=== PATIENT | female | born 1965 | race Caucasian/White ===

== ENCOUNTER 2020-08-29 15:50 | Outpatient (REF) | payer OTHER, SELFPAY ==
[2020-08-29 17:12] LABS: MANUAL DIFF FLAG NO
[2020-08-29 17:27] LABS: Basophils Absolute Auto 0.1 X10*3/uL (0.0-0.2); Basophils Percent Auto 0.8 % (0-2); Eosinophils Absolute Auto 0.4 X10*3/uL (0.0-0.4); Eosinophils Percent Auto 5.5 % (0-4); Hemoglobin 13.1 g/dl (12.0-16.0); Imm Gran Abs Auto 0.02 X10*3/uL (0.00-0.03); Imm Gran Pct Auto 0.3 % (0.0-0.4); Lymphocytes Absolute Auto 2.4 X10*3/uL (1.2-4.9); Lymphocytes Percent Auto 32.2 % (20-40); Mean Corpuscular Hemoglobin 28.7 pg (27.0-33.0); Mean Corpuscular Volume 89.7 fL (80-98); Mean Platelet Volume 9.8 fL (9.4-12.3); Monocytes Absolute Auto 0.5 X10*3/uL (0.1-1.2); Monocytes Percent Auto 6.7 % (2-11); Neutrophils Absolute Auto 4.1 X10*3/uL (2.0-8.3); Neutrophils Percent Auto 54.5 % (45-73); Platelet Count 330 X10*3/uL (160-400); Red Blood Count 4.57 X10*6/uL (4.20-5.50); Red Cell Distribution Width 12.7 % (11.0-16.0); White Blood Count 7.5 X10*3/uL (4.8-10.8)
[2020-08-29 17:38] LABS: Alanine Aminotransferase 22 U/L (0-31); Albumin Level 4.4 g/dL (3.5-5.0); Alkaline Phosphatase 38 U/L (39-117); Anion Gap 12 (12-20); Aspartate Amino Transferase 19 U/L (5-31); Bilirubin Total 0.3 mg/dL (0.0-1.0); Blood Urea Nitrogen 19 mg/dL (9-16); C Reactive Protein 0.28 mg/dL (< or = 0.50); Calcium 9.5 mg/dL (8.4-10.2); Carbon Dioxide 26 mmol/L (22-29); Chloride 106 mmol/L (96-108); Estimated Glomerular Filt Rate > 60; Glucose Random 72 mg/dL (60-115); Potassium 4.1 mmol/l (3.3-5.1); Sodium 140 mmol/L (135-145); Total Protein 7.1 g/dL (6.5-8.0)
[2020-08-29 19:34] LABS: Erythrocyte Sedimentation Rate 4 MM/HR (0-20)
== END 2020-08-29 15:51 | disposition home or self-care (01) ==
LOC: HO.LAB 15:50
PROVIDERS: PCP Internal Medicine; Visit Provider Student in an Organized Health Care Education/Training Program
DX: R76.8 Other specified abnormal immunological findings in serum (principal)
CPT/HCPCS: 36415; 80053; 85025; 85652; 86140

== ENCOUNTER → 2020-09-03 15:44 | Outpatient (BNVA) | payer OTHER, SELFPAY | PROVIDERS: PCP Internal Medicine; Referring Provider Internal Medicine; Visit Provider Student in an Organized Health Care Education/Training Program | DX: R76.8 Other specified abnormal immunological findings in serum (principal); R07.9 Chest pain, unspecified | CPT/HCPCS: 99213 ==

== ENCOUNTER 2020-09-03 16:15 | Emergency (ER) | payer OTHER, SELFPAY ==
--- NOTE | 2020-09-03 | ECG_ITS ---
Test Reason : CHEST PAIN Blood Pressure : / mmHG Vent. Rate : 074 BPM Atrial Rate : 074 BPM P-R Int : 164 ms QRS Dur : 094 ms QT Int : 410 ms P-R-T Axes : 035 004 043 degrees QTc Int : 455 ms Normal sinus rhythm T wave abnormality, consider anterior ischemia Abnormal ECG No previous ECGs available Referred By: Generic ED Physician Electronically Signed By:KIERA ASCENCIO MD
[2020-09-03 17:12] VITALS: BP 121/63; PULSE 72; RESP 18; TEMP 36.1; O2SAT 96; BMI 34.8
--- NOTE | 2020-09-03 18:41 | XR_ITS ---
EXAMINATION: XR CHEST CLINICAL INFORMATION: Chest pain COMPARISON: 12/01/2017 TECHNIQUE: Frontal view of the chest was obtained. FINDINGS: There is increasing coarse interstitial prominence. No focal consolidation or mass. Normal heart size. Degenerative changes of the shoulders and spine. IMPRESSION: Increasing coarse interstitial prominence. This can be seen acutely with bronchiolitis or interstitial pneumonitis, chronically with chronic bronchitis or reactive airways disease.
[2020-09-03 19:11] VITALS: BP 127/58; PULSE 68; RESP 16; TEMP 36.7; O2SAT 96
[2020-09-03 19:11] LABS: MANUAL DIFF FLAG NO
[2020-09-03 19:14] LABS: Basophils Absolute Auto 0.1 X10*3/uL (0.0-0.2); Basophils Percent Auto 0.9 % (0-2); Eosinophils Absolute Auto 0.6 X10*3/uL (0.0-0.4); Eosinophils Percent Auto 8.6 % (0-4); Hematocrit 40.6 % (37-47); Hemoglobin 13.1 g/dl (12.0-16.0); Imm Gran Abs Auto 0.01 X10*3/uL (0.00-0.03); Imm Gran Pct Auto 0.2 % (0.0-0.4); Lymphocytes Absolute Auto 2.6 X10*3/uL (1.2-4.9); Lymphocytes Percent Auto 39.1 % (20-40); Mean Corpuscular HGB Conc 32.3 g/dl (31.0-35.0); Mean Corpuscular Volume 89.8 fL (80-98); Mean Platelet Volume 9.3 fL (9.4-12.3); Monocytes Absolute Auto 0.5 X10*3/uL (0.1-1.2); Monocytes Percent Auto 7.1 % (2-11); Neutrophils Absolute Auto 2.9 X10*3/uL (2.0-8.3); Neutrophils Percent Auto 44.1 % (45-73); Platelet Count 317 X10*3/uL (160-400); Red Blood Count 4.52 X10*6/uL (4.20-5.50); Red Cell Distribution Width 12.5 % (11.0-16.0); White Blood Count 6.7 X10*3/uL (4.8-10.8)
[2020-09-03 19:21] LABS: Prothrombin Time 11.4 SEC (10.8-13.0)
[2020-09-03 19:24] LABS: Partial Thromboplastin Time 31.6 SEC (24.1-38.0)
--- NOTE | 2020-09-03 19:41 | ED.CHESTPAIN ---
HPI - Chest Pain General Chief Complaint: Chest Pain Stated Complaint: chest pain Time Seen by Provider: 09/03/20 18:41 Source: patient Mode of arrival: ambulatory Limitations: no limitations History of Present Illness HPI narrative: 54-year-old female presents with chest pain. chest pain feels like a bandlike pressure going around her chest, started on Tuesday and has been intermittent. She called her primary care physician for an appointment today and was referred to the emergency department. She does have bilateral lower extremity edema per baseline, a history of DASHAWN positive test. She has been taking [id number] medications with poor effect, and reports to have intermittent diaphoresis with this chest pain. She does not describe any palpitations, fevers, chills, abdominal pain, abdominal distention, dysuria, hematuria, lightheadedness, dizziness, and weakness. MD complaint: chest pain and chest heaviness Onset (ago): day(s) (4) Timing of current episode: episodic Prior episodes: No Onset: during rest and during exertion Pain location: substernal, left chest and right chest Pain radiation: none Severity: moderate Pain scale (0-10): 6 Quality: tightness and heaviness Relieving factors: nothing Exacerbating factors: exertion Associated symptoms: diaphoresis Risk Factors Coronary artery disease risk factors: none Related Data On Oral Contraceptives: No Home Medications Medication Instructions Recorded Confirmed acetaminophen 650 mg 650 mg PO BID 08/14/20 09/03/20 tablet,extended release aspirin 81 mg tablet,delayed 81 mg PO DAILY 08/14/20 09/03/20 release bupropion HCl 300 mg 24 hr tablet, 300 mg PO DAILY 08/14/20 09/03/20 extended release citalopram 40 mg tablet 40 mg PO BEDTIME 08/14/20 09/03/20 cyanocobalamin (vitamin B-12) 1,000 mcg SUBLINGUAL DAILY 08/14/20 09/03/20 1,000 mcg sublingual tablet diclofenac sodium 1 % topical gel 1 g TOPICAL BID PRN 08/14/20 09/03/20 ethacrynic acid 25 mg tablet 50 mg PO DAILY 08/14/20 09/03/20 ferrous sulfate 325 mg (65 mg 325 mg PO DAILY 08/14/20 09/03/20 iron) tablet gabapentin 300 mg capsule 300 mg PO TID 08/14/20 09/03/20 hydroxyzine pamoate 25 mg capsule 25 mg PO BID PRN 08/14/20 09/03/20 ibuprofen 600 mg tablet 600 mg PO TID 08/14/20 09/03/20 mesalamine 1.2 gram tablet,delayed 1.2 g PO DAILY 08/14/20 09/03/20 release mupirocin 2 % topical ointment 1 applic TOPICAL BID 08/14/20 09/03/20 omeprazole 40 mg capsule,delayed 40 mg PO DAILY 08/14/20 09/03/20 release oxycodone-acetaminophen 5 mg-325 1 tab PO Q6H PRN 08/14/20 09/03/20 mg tablet pentoxifylline 400 mg 400 mg PO DAILY 08/14/20 09/03/20 tablet,extended release polysaccharide iron complex 150 mg 150 mg PO DAILY 08/14/20 09/03/20 iron capsule pravastatin 40 mg tablet 40 mg PO DAILY 08/14/20 09/03/20 ropinirole 0.5 mg tablet 0.5 mg PO BEDTIME 08/14/20 09/03/20 sumatriptan succinate 50 mg tablet 50 mg PO DAILY PRN 08/14/20 09/03/20 topiramate 25 mg tablet 25 mg PO DAILY 08/14/20 09/03/20 verapamil 180 mg tablet,extended 180 mg PO DAILY 08/14/20 09/03/20 release Previous Rx's Medication Instructions Recorded azithromycin 250 mg PO DAILY 4 Days #4 tab 09/03/20 prednisone 40 mg PO DAILY 4 Days #8 tab 09/03/20 Allergies Allergy/AdvReac Type Severity Reaction Status Date / Time amoxicillin [AMOXICILLIN] Allergy Intermediate FACIAL Unverified 07/31/20 16:39 SWELLING, swollen face sulfamethoxazole Allergy Intermediate HIVES Unverified 07/31/20 16:39 [From BACTRIM] trimethoprim [From BACTRIM] Allergy Intermediate HIVES Unverified 07/31/20 16:39 Sulfa (Sulfonamide Allergy Unknown red Unverified 03/13/20 00:00 Antibiotics) patches all over legs Review of Systems Review of Systems: Constitutional: No Weight loss, No Fever, No Chills, No Night Sweats, No Fatigue, No Malaise ENT/Mouth: No Hearing loss, No Ear Pain, No Nasal Congestion, No Sinus Pain, No Hoarseness, No sore throat, No Rhinorrhea, No Swallowing Difficulty Eyes: No Eye Pain, No Swelling, No Redness, No Foreign Body, No Discharge, No Vision Changes Cardiovascular: pos Chest Pain, no SOB, no Dyspnea on Exertion, No Orthopnea, No Edema, No Palpitations Respiratory: No Cough, No Sputum, No Wheezing, No Smoke Exposure, No Dyspnea Gastrointestinal: no Nausea, No Vomiting, No Diarrhea, No abdominal Pain, No Hematochezia, No Melena Genitourinary: No irregular bleeding, No Dysuria, No Urinary Frequency, No Hematuria, No Urinary Incontinence, No Urgency, No Flank Pain, No Urinary Flow Changes, No Hesitancy Musculoskeletal: No joint pain, No Myalgias, No Joint Swelling Skin: No Skin Lesions, No rash Neuro: No Weakness, No Numbness, No Paresthesias, No Loss of Consciousness, No Dizziness, No Headache Psych: No Anxiety/Panic, No Depression, No SI/HI/AH/VH Heme/Lymph: No Bruising, No Bleeding,No Lymphadenopathy Endocrine: No Polyuria, No Polydipsia, No Temperature Intolerance Yes all other systems are reviewed and are negative [facility] Past Medical History Attestation statement: The following information was validated with the patient. Medical History DASHAWN positive Positive anti-CCP test Social History Social History Alcohol intake: never Smoking Status: Never smoker Physical Exam Vital Signs: Vital Signs: Vital Signs Temp Pulse Resp BP Pulse Ox 09/03/20 20:00 98.3 F 65 16 122/66 96 09/03/20 19:11 98.0 F 68 16 127/58 L 96 09/03/20 17:12 97.0 F 72 18 121/63 96 Body Mass Index 34.8 Appearance: Alert. Oriented X3. No acute distress. Head: Normal external exam. Normocephalic. Atraumatic. No Mulligan signs noted. No raccoon eyes noted Eyes: PERRLA. EOMI. Conjunctiva and sclera normal. Eyelids normal. ENT: TM's Normal. Pharynx normal. Uvula midline. Moist mucous membranes. No trismus noted. No drooling noted. No muffled voice noted. Neck: Normal inspection. Neck supple. No adenopathy. Thyroid Normal. No meningeal signs. No neck mass noted. CVS: Normal heart rate and rhythm. Heart sound normal. No murmurs noted. Pulses equal to all extremities. Respiratory: No respiratory distress. Painless inspiration. Breath sounds normal. No wheezes/rales/rhonchi noted. Chest nontender. No accessory muscle usage noted or decreased air movement noted. Abdomen: Soft and nontender. Bowel sounds normal in all 4 quadrants. No distention noted. No organomegaly noted. No visible injury noted. Back: No CVA tenderness. Full range of motion noted. Skin: Skin warm and dry. Normal skin color. Normal skin turgor. No rashes/lesions/lacerations noted. Extremities: No lower extremity edema. Extremities exhibit normal range of motion. Extremities nontender. Neuro: cranial nerves 2-12 intact, no focal neural deficits, strength 5/5 to all extremities, No motor deficit. No sensory deficit. Reflexes normal. Course Course Course Narrative: Patient presents with chest pain, plan is to rule out ACS, pneumonia, URI, infection. Lab values are unremarkable and do not require emergent intervention at this time, EKG is normal sinus, troponin is negative, chest x-ray is positive for bronchiolitis and/or pneumonitis. Plan of care is to treat with antibiotics, prednisone, and have patient follow-up with Pulmonary. Reevaluation(s) Reevaluation #1: Detailed description of need to follow-up with pulmonary and for oral antibiotics and prednisone. Patient will follow-up with primary care provider and Pulmonary as requested. Patient verbalized understanding of and agrees to plan of care discharge home. Time: 21:04 MDM - Chest Pain Differential Diagnosis Differential diagnosis: Likely fracture of rib, pneumothorax, stable angina, unstable angina pectoris, atypical chest pain, st elevation myocardial infarction, costochondritis, chest pain and biliary colic Differential diagnosis: Pneumonia, URI, CHF Medical Records Data Attestation: I reviewed the patient's medical records. Lab Data Attestation: I reviewed the patient's lab results. Result diagrams: 09/03/20 19:06 09/03/20 20:03 Labs: Lab Results 09/03/20 09/03/20 09/03/20 Range/Units 19:06 19:06 19:06 WBC 6.7 (4.8-10.8) X10*3/uL RBC 4.52 (4.20-5.50) X10*6/uL Hgb 13.1 (12.0-16.0) g/dl Hct 40.6 (37-47) % MCV 89.8 (80-98) fL MCH 29.0 (27.0-33.0) pg MCHC 32.3 (31.0-35.0) g/dl RDW 12.5 (11.0-16.0) % Plt Count 317 (160-400) X10*3/uL MPV 9.3 L (9.4-12.3) fL Immature Gran % (Auto) 0.2 (0.0-0.4) % Neut % (Auto) 44.1 L (45-73) % Lymph % (Auto) 39.1 (20-40) % Ashley % (Auto) 7.1 (2-11) % Eos % (Auto) 8.6 H (0-4) % Baso % (Auto) 0.9 (0-2) % Lymph # (Auto) 2.6 (1.2-4.9) X10*3/uL Ashley # (Auto) 0.5 (0.1-1.2) X10*3/uL Eos # (Auto) 0.6 H (0.0-0.4) X10*3/uL Baso # (Auto) 0.1 (0.0-0.2) X10*3/uL Abs Immat Gran (auto) 0.01 (0.00-0.03) X10*3/uL Absolute Neuts (auto) 2.9 (2.0-8.3) X10*3/uL Absolute Nucleated RBC 0.000 (0.0-0.012) X10*3/uL Nucleated RBC % (auto) 0.0 (0.0-0.2) /100WBC PT 11.4 (10.8-13.0) SEC INR 1.0 (0.9-1.1) APTT 31.6 (24.1-38.0) SEC Sodium Cancelled Potassium Cancelled Chloride Cancelled Carbon Dioxide Cancelled Anion Gap Cancelled BUN Cancelled Creatinine Cancelled Estim Creat Clear Calc Cancelled Estimated GFR Cancelled Random Glucose Cancelled Calcium Cancelled Total Bilirubin Cancelled Direct Bilirubin Cancelled AST Cancelled ALT Cancelled Alkaline Phosphatase Cancelled Troponin I High Sens (<3.5-17.0) ng/L B-Natriuretic Peptide (<100) pg/mL Total Protein Cancelled Albumin Cancelled Lipase Cancelled 09/03/20 09/03/20 Range/Units 19:06 20:03 WBC (4.8-10.8) X10*3/uL RBC (4.20-5.50) X10*6/uL Hgb (12.0-16.0) g/dl Hct (37-47) % MCV (80-98) fL MCH (27.0-33.0) pg MCHC (31.0-35.0) g/dl RDW (11.0-16.0) % Plt Count (160-400) X10*3/uL MPV (9.4-12.3) fL Immature Gran % (Auto) (0.0-0.4) % Neut % (Auto) (45-73) % Lymph % (Auto) (20-40) % Ashley % (Auto) (2-11) % Eos % (Auto) (0-4) % Baso % (Auto) (0-2) % Lymph # (Auto) (1.2-4.9) X10*3/uL Ashley # (Auto) (0.1-1.2) X10*3/uL Eos # (Auto) (0.0-0.4) X10*3/uL Baso # (Auto) (0.0-0.2) X10*3/uL Abs Immat Gran (auto) (0.00-0.03) X10*3/uL Absolute Neuts (auto) (2.0-8.3) X10*3/uL Absolute Nucleated RBC (0.0-0.012) X10*3/uL Nucleated RBC % (auto) (0.0-0.2) /100WBC PT (10.8-13.0) SEC INR (0.9-1.1) APTT (24.1-38.0) SEC Sodium 138 Potassium 3.7 Chloride 108 Carbon Dioxide 22 Anion Gap 12 BUN 15 Creatinine 0.99 Estim Creat Clear Calc 74.0 Estimated GFR 58 Random Glucose 76 Calcium 8.8 Total Bilirubin 0.3 Direct Bilirubin < 0.2 AST 20 ALT 23 Alkaline Phosphatase 37 L Troponin I High Sens < 3.5 (<3.5-17.0) ng/L B-Natriuretic Peptide 19 (<100) pg/mL Total Protein 6.8 Albumin 4.2 Lipase 12 Imaging Data Chest x-ray: Attestation: I personally reviewed and interpreted this imaging study as follows: Radiologist's impression: TECHNIQUE: Frontal view of the chest was obtained. FINDINGS: There is increasing coarse interstitial prominence. No focal consolidation or mass. Normal heart size. Degenerative changes of the shoulders and spine. IMPRESSION: Increasing coarse interstitial prominence. This can be seen acutely with bronchiolitis or interstitial pneumonitis, chronically with chronic bronchitis or reactive airways disease. ECG Data ECG #1: Attestation: I personally reviewed and interpreted this ECG as follows: ECG interpretation date: 09/03/20 ECG interpretation time: 16:26 Prior ECG tracings: not available for review Interpretation: Vent. Rate : 074 BPM Atrial Rate : 074 BPM P-R Int : 164 ms QRS Dur : 094 ms QT Int : 410 ms P-R-T Axes : 035 004 043 degrees QTc Int : 455 ms Normal sinus rhythm T wave abnormality, consider anterior ischemia Abnormal ECG No previous ECGs available Scores Heart Score History: -1- moderately suspicious ECG: -0- normal Age: -1- >45 - <65 Risk factory: -1- 1 or 2 risk factors Troponin: -0- < or = normal limit Score: 3 Risk: 1.7% Discharge Plan Discharge Clinical Impression: Bronchiolitis, DASHAWN positive Chest pain Qualifiers: Chest pain type: unspecified Qualified Code(s): R07.9 - Chest pain, unspecified Patient Disposition: Home, Self-Care Instructions: Bronchiolitis (ED), How Your Lungs Work (ED) Additional Instructions: you were evaluated for chest pain. your EKG is normal sinus rhythm, troponins are negative. Your chest x-ray shows occasion of bronchiolitis. We have prescribed azithromycin. This is an antibiotic. Please complete the entire course of this medication. We prescribed prednisone. Please take this medication as directed. We referred you to blow moulding machine operator Dr. Gilmore. please call and make an appointment. Thank you for choosing this emergency department for evaluation. Please follow-up with primary care physician as needed. Return to the emergency department for any new, concerning, or worsening symptoms. Prescriptions: New azithromycin 250 mg tablet 250 mg PO DAILY 4 Days Qty: 4 RF: 0 prednisone 20 mg tablet 40 mg PO DAILY 4 Days Qty: 8 RF: 0 Referrals: Augusto Gilmore MD [Physician] - 2 days ( bronchiolitis) Interventions: ED Discharge Assessment Last Done: 09/03/20 21:27 Discharge Date/Time: 09/03/20 21:28
[2020-09-03 19:52] LABS: B Type Natriuretic Peptide 19 pg/mL (<100); Troponin-I High Sensitivity < 3.5 ng/L (<3.5-17.0)
[2020-09-03 20:00] VITALS: BP 122/66; PULSE 65; RESP 16; TEMP 36.8; O2SAT 96
[2020-09-03 20:48] LABS: Alanine Aminotransferase 23 U/L (0-31); Albumin Level 4.2 g/dL (3.5-5.0); Alkaline Phosphatase 37 U/L (39-117); Anion Gap 12 (12-20); Aspartate Amino Transferase 20 U/L (5-31); Bilirubin Direct < 0.2 mg/dL (0.0-0.5); Bilirubin Total 0.3 mg/dL (0.0-1.0); Blood Urea Nitrogen 15 mg/dL (9-16); Calcium 8.8 mg/dL (8.4-10.2); Carbon Dioxide 22 mmol/L (22-29); Chloride 108 mmol/L (96-108); Estimated Glomerular Filt Rate 58; Glucose Random 76 mg/dL (60-115); Lipase 12 U/L (8-78); Potassium 3.7 mmol/l (3.3-5.1); Sodium 138 mmol/L (135-145); Total Protein 6.8 g/dL (6.5-8.0)
[2020-09-03] MEDS: Azithromycin 500 MG TABLET PO (21:21)
[2020-09-03] MEDS: predniSONE 10 MG TABLET 40 MG PO (21:21)
== END 2020-09-03 21:28 | disposition home or self-care (01) ==
PROVIDERS: Nurse Practitioner Family; Emergency Provider Emergency Medicine; PCP Internal Medicine
DX: R07.9 Chest pain, unspecified (principal); J21.9 Acute bronchiolitis, unspecified; R76.0 Raised antibody titer
CPT/HCPCS: 36415; 71045; 80048; 80076; 83690; 83880; 84484; 85025; 85610; 85730; 93005; 99283; 99284

== ENCOUNTER 2020-10-13 09:52 | Outpatient (REF) | payer OTHER, SELFPAY | END 2020-10-13 09:53 | disposition home or self-care (01) | LOC: HO.LAB 09:52 | PROVIDERS: Visit Provider Internal Medicine | DX: Z20.828 Contact with and (suspected) exposure to other viral communicable diseases (principal) | CPT/HCPCS: C9803; U0003 ==

== ENCOUNTER 2020-10-28 16:16 | Outpatient (REF) | payer OTHER, SELFPAY ==
[2020-10-28 16:49] LABS: MANUAL DIFF FLAG NO
[2020-10-28 16:54] LABS: Basophils Absolute Auto 0.1 X10*3/uL (0.0-0.2); Basophils Percent Auto 0.9 % (0-2); Eosinophils Absolute Auto 0.4 X10*3/uL (0.0-0.4); Hematocrit 40.8 % (37-47); Hemoglobin 12.9 g/dl (12.0-16.0); Imm Gran Abs Auto 0.01 X10*3/uL (0.00-0.03); Imm Gran Pct Auto 0.1 % (0.0-0.4); Lymphocytes Absolute Auto 2.3 X10*3/uL (1.2-4.9); Lymphocytes Percent Auto 33.2 % (20-40); Mean Corpuscular HGB Conc 31.6 g/dl (31.0-35.0); Mean Corpuscular Hemoglobin 28.7 pg (27.0-33.0); Mean Corpuscular Volume 90.9 fL (80-98); Monocytes Absolute Auto 0.5 X10*3/uL (0.1-1.2); Monocytes Percent Auto 7.9 % (2-11); Neutrophils Absolute Auto 3.5 X10*3/uL (2.0-8.3); Neutrophils Percent Auto 51.9 % (45-73); Platelet Count 334 X10*3/uL (160-400); Red Blood Count 4.49 X10*6/uL (4.20-5.50); Red Cell Distribution Width 13.3 % (11.0-16.0); White Blood Count 6.8 X10*3/uL (4.8-10.8)
[2020-10-28 17:38] LABS: Alanine Aminotransferase 35 U/L (0-31); Albumin Level 4.5 g/dL (3.5-5.0); Alkaline Phosphatase 42 U/L (39-117); Anion Gap 12 (12-20); Aspartate Amino Transferase 27 U/L (5-31); Bilirubin Total 0.3 mg/dL (0.0-1.0); Blood Urea Nitrogen 15 mg/dL (9-16); Calcium 8.6 mg/dL (8.4-10.2); Carbon Dioxide 25 mmol/L (22-29); Chloride 107 mmol/L (96-108); Cholesterol 194 mg/dL; Estimated Glomerular Filt Rate > 60; Glucose Fasting 78 mg/dL (60-99); HDL Cholesterol 55 mg/dL; LDL Cholesterol Calculated 87 mg/dl; Potassium 4.2 mmol/l (3.3-5.1); Sodium 140 mmol/L (135-145); Triglycerides 260 mg/dL
== END 2020-10-28 16:17 | disposition home or self-care (01) ==
LOC: HO.LAB 16:16
PROVIDERS: PCP Internal Medicine; Visit Provider Internal Medicine
DX: E78.5 Hyperlipidemia, unspecified (principal); I10 Essential (primary) hypertension
CPT/HCPCS: 36415; 80053; 80061; 85025

== ENCOUNTER → 2021-02-05 13:39 | Outpatient (BNV) | payer OTHER, SELFPAY | PROVIDERS: PCP Internal Medicine; Visit Provider Internal Medicine Medical Oncology | DX: D50.9 Iron deficiency anemia, unspecified (principal) | CPT/HCPCS: 99212; 99213 ==

== ENCOUNTER 2021-02-10 14:20 | Outpatient (REF) | payer OTHER, SELFPAY ==
--- NOTE | ~2021-02-10 | XR_ITS ---
EXAMINATION: XR BILATERAL SHOULDERS CLINICAL INFORMATION: Pain COMPARISON: None TECHNIQUE: AP, Grashey, transscapular Y and axillary views of each shoulder XR/XR shoulder LT min 2V FINDINGS/IMPRESSION: Right shoulder: No acute fracture or dislocation. Moderate marginal osteophytes along the acromioclavicular joint. Calcific rotator cuff tendinopathy. Soft tissues otherwise unremarkable. Left shoulder: No acute fracture or dislocation. Small marginal osteophytes along the acromioclavicular joint injecting dorsally. Soft tissues unremarkable.
--- NOTE | ~2021-02-10 | XR_ITS ---
EXAMINATION: XR BILATERAL SHOULDERS CLINICAL INFORMATION: Pain COMPARISON: None TECHNIQUE: AP, Grashey, transscapular Y and axillary views of each shoulder XR/XR shoulder RT min 2V FINDINGS/IMPRESSION: Right shoulder: No acute fracture or dislocation. Moderate marginal osteophytes along the acromioclavicular joint. Calcific rotator cuff tendinopathy. Soft tissues otherwise unremarkable. Left shoulder: No acute fracture or dislocation. Small marginal osteophytes along the acromioclavicular joint injecting dorsally. Soft tissues unremarkable.
== END 2021-02-10 14:21 | disposition home or self-care (01) ==
LOC: HO.LAB 14:20
PROVIDERS: PCP Internal Medicine; Visit Provider Student in an Organized Health Care Education/Training Program
DX: R76.8 Other specified abnormal immunological findings in serum (principal); M05.9 Rheumatoid arthritis with rheumatoid factor, unspecified
CPT/HCPCS: 73030; 99212

== ENCOUNTER 2021-02-12 13:56 | Outpatient (REF) | payer OTHER, SELFPAY ==
[2021-02-12 15:03] LABS: C Reactive Protein 0.34 mg/dL (< or = 0.50)
[2021-02-12 15:06] LABS: Alanine Aminotransferase 31 U/L (0-31); Anion Gap 11 (12-20); Aspartate Amino Transferase 22 U/L (5-31); Blood Urea Nitrogen 17 mg/dL (9-16); Calcium 9.3 mg/dL (8.4-10.2); Carbon Dioxide 30 mmol/L (22-29); Chloride 106 mmol/L (96-108); Cholesterol 201 mg/dL; Estimated Glomerular Filt Rate 58; Glucose Fasting 85 mg/dL (60-99); HDL Cholesterol 56 mg/dL; LDL Cholesterol Calculated 111 mg/dl; Potassium 4.7 mmol/L (3.3-5.1); Sodium 142 mmol/L (135-145); Triglycerides 170 mg/dL
[2021-02-12 16:05] LABS: Erythrocyte Sedimentation Rate 2 MM/HR (0-20)
[2021-02-13 08:15] LABS: HBc Num1 0.05 S/CO (0.00-0.79); Hepatitis A Antibody IgM 0.08 Index (0-0.79); Hepatitis B Core Antibody Nonreactive (Nonreactive); ~HepC Num1 0.09 S/CO (0.00-0.79); ~Hepatitis A Antibody IgM Nonreactive (Nonreactive); ~Hepatitis B Surface Antibody NONREACTIVE (Nonreactive); ~Hepatitis C Antibody Nonreactive (Nonreactive)
[2021-02-13 08:17] LABS: HBsAGNum1 0.12 S/CO (0.00-0.99); Hepatitis B Surface Antigen Negative (Negative)
[2021-02-14 17:51] LABS: TS Negative Control Passed; TS Panel A 0; TS Panel B 0; TS Positive Control Passed; TSpotTB Negative (SeeBelow)
== END 2021-02-12 13:57 | disposition home or self-care (01) ==
LOC: HO.LAB 13:56
PROVIDERS: PCP Internal Medicine; Visit Provider Student in an Organized Health Care Education/Training Program
DX: R76.8 Other specified abnormal immunological findings in serum (principal)
CPT/HCPCS: 36415; 80048; 80061; 84450; 84460; 85652; 86140; 86481; 86704; 86706; 86709; 86803; 87340

== ENCOUNTER → 2021-02-18 14:38 | Outpatient (BNVA) | payer OTHER, SELFPAY | PROVIDERS: PCP Internal Medicine; Visit Provider Student in an Organized Health Care Education/Training Program | DX: M67.911 Unspecified disorder of synovium and tendon, right shoulder (principal); M67.912 Unspecified disorder of synovium and tendon, left shoulder | CPT/HCPCS: 20610; 99212 ==

== ENCOUNTER 2021-04-22 13:25 | Outpatient (REF) | payer OTHER, SELFPAY ==
[2021-04-22 14:30] LABS: MANUAL DIFF FLAG NO
[2021-04-22 14:36] LABS: Basophils Absolute Auto 0.1 X10*3/uL (0.0-0.2); Eosinophils Absolute Auto 0.5 X10*3/uL (0.0-0.4); Eosinophils Percent Auto 6.7 % (0-4); Hemoglobin 12.7 g/dl (12.0-16.0); Imm Gran Abs Auto 0.01 X10*3/uL (0.00-0.03); Imm Gran Pct Auto 0.1 % (0.0-0.4); Lymphocytes Absolute Auto 2.1 X10*3/uL (1.2-4.9); Lymphocytes Percent Auto 29.8 % (20-40); Mean Corpuscular HGB Conc 31.8 g/dl (31.0-35.0); Mean Corpuscular Hemoglobin 29.1 pg (27.0-33.0); Mean Corpuscular Volume 91.5 fL (80-98); Mean Platelet Volume 9.2 fL (9.4-12.3); Monocytes Absolute Auto 0.5 X10*3/uL (0.1-1.2); Monocytes Percent Auto 6.3 % (2-11); Neutrophils Percent Auto 56.1 % (45-73); Platelet Count 327 X10*3/uL (160-400); Red Blood Count 4.37 X10*6/uL (4.20-5.50); Red Cell Distribution Width 13.8 % (11.0-16.0); White Blood Count 7.1 X10*3/uL (4.8-10.8)
[2021-04-22 15:12] LABS: Erythrocyte Sedimentation Rate 3 MM/HR (0-20)
[2021-04-22 16:09] LABS: Alanine Aminotransferase 23 U/L (0-31); Albumin Level 4.5 g/dL (3.5-5.0); Alkaline Phosphatase 41 U/L (39-117); Anion Gap 12 (12-20); Aspartate Amino Transferase 18 U/L (5-31); Bilirubin Total 0.3 mg/dL (0.0-1.0); Blood Urea Nitrogen 18 mg/dL (9-16); C Reactive Protein 0.32 mg/dL (< or = 0.50); Calcium 10.2 mg/dL (8.4-10.2); Carbon Dioxide 28 mmol/L (22-29); Chloride 108 mmol/L (96-108); Cholesterol 201 mg/dL; Estimated Glomerular Filt Rate 58; Glucose Fasting 84 mg/dL (60-99); HDL Cholesterol 54 mg/dL; LDL Cholesterol Calculated 96 mg/dl; Potassium 4.3 mmol/L (3.3-5.1); Sodium 144 mmol/L (135-145); Total Protein 6.9 g/dL (6.5-8.0); Triglycerides 255 mg/dL
== END 2021-04-22 13:26 | disposition home or self-care (01) ==
LOC: HO.LAB 13:25
PROVIDERS: Absent Provider Internal Medicine; PCP Internal Medicine; Visit Provider Student in an Organized Health Care Education/Training Program
DX: M05.9 Rheumatoid arthritis with rheumatoid factor, unspecified (principal); R76.8 Other specified abnormal immunological findings in serum; E78.5 Hyperlipidemia, unspecified; I10 Essential (primary) hypertension; Z79.899 Other long term (current) drug therapy
CPT/HCPCS: 36415; 80048; 80053; 80061; 85025; 85652; 86140; 99212

== ENCOUNTER → 2021-05-21 13:51 | Outpatient (BNVA) | payer OTHER, SELFPAY | PROVIDERS: PCP Internal Medicine; Visit Provider Student in an Organized Health Care Education/Training Program | DX: M67.912 Unspecified disorder of synovium and tendon, left shoulder (principal); M67.911 Unspecified disorder of synovium and tendon, right shoulder | CPT/HCPCS: 20610; 99212; J3300 ==

== ENCOUNTER → 2021-06-16 14:11 | Outpatient (BNVA) | payer OTHER, SELFPAY | PROVIDERS: PCP Internal Medicine; Visit Provider Nurse Practitioner Family | DX: M05.9 Rheumatoid arthritis with rheumatoid factor, unspecified (principal); R76.8 Other specified abnormal immunological findings in serum; M67.912 Unspecified disorder of synovium and tendon, left shoulder; M67.911 Unspecified disorder of synovium and tendon, right shoulder | CPT/HCPCS: 99212 ==

== ENCOUNTER → 2021-09-21 14:47 | Outpatient (BNVA) | payer OTHER, SELFPAY | PROVIDERS: Visit Provider Physician Assistant | DX: M67.912 Unspecified disorder of synovium and tendon, left shoulder (principal); M67.911 Unspecified disorder of synovium and tendon, right shoulder; M05.9 Rheumatoid arthritis with rheumatoid factor, unspecified | CPT/HCPCS: 20610; 99202; J1040 ==

== ENCOUNTER 2021-11-10 15:46 | Emergency (ER) | payer OTHER, SELFPAY ==
--- NOTE | ~2021-11-10 | US_ITS ---
EXAMINATION: US VENOUS ULTRASOUND WITH DOPPLER LOWER EXTREMITY, BILATERAL CLINICAL INFORMATION: Bilateral lower extremity pain and swelling COMPARISON: DVT study right leg 11/30/2018 TECHNIQUE: Ultrasound of the deep veins is performed from the hip to the calf with compression sonography and color and pulse Doppler assessment. Spectral analysis with color-flow imaging is performed. FINDINGS: RIGHT: There is normal venous compression and respiratory variation and augmented flow. The visualized common femoral vein, superficial femoral vein, profunda femoral vein, popliteal vein, and the trifurcation region shows no evidence of deep venous thrombosis. There is no significant popliteal fossa cyst. LEFT: There is normal venous compression and respiratory variation and augmented flow. The visualized common femoral vein, superficial femoral vein, profunda femoral vein, popliteal vein, and the trifurcation region shows no evidence of deep venous thrombosis. The left peroneal vein was not seen. There is no significant popliteal fossa cyst. If the patient's symptoms persist, followup ultrasound in 5 days 7 days might be of value to exclude proximal propagation from a non-visualized calf vein. US/US venous duplex LE BI IMPRESSION: No DVT demonstrated in either lower extremity.
[2021-11-10 16:25] VITALS: BP 148/71; PULSE 73; RESP 18; TEMP 36.3; O2SAT 98; BMI 34.4
[2021-11-10 17:39] LABS: MANUAL DIFF FLAG NO
[2021-11-10 17:40] LABS: Basophils Absolute Auto 0.1 X10*3/uL (0.0-0.2); Basophils Percent Auto 0.9 % (0-2); Eosinophils Absolute Auto 0.3 X10*3/uL (0.0-0.4); Eosinophils Percent Auto 5.8 % (0-4); Hematocrit 40.6 % (37.0-47.0); Imm Gran Abs Auto 0.02 X10*3/uL (0.00-0.03); Imm Gran Pct Auto 0.4 % (0.0-0.4); Lymphocytes Absolute Auto 2.1 X10*3/uL (1.2-4.9); Lymphocytes Percent Auto 36.4 % (20-40); Mean Corpuscular Hemoglobin 29.7 pg (27.0-33.0); Mean Corpuscular Volume 92.9 fL (80.0-98.0); Monocytes Absolute Auto 0.5 X10*3/uL (0.1-1.2); Neutrophils Absolute Auto 2.8 x10*3/uL (2.0-8.3); Neutrophils Percent Auto 48.5 % (45-73); Platelet Count 324 X10*3/uL (160-400); Red Blood Count 4.37 X10*6/uL (4.20-5.50); Red Cell Distribution Width 13.5 % (11.0-16.0); White Blood Count 5.7 X10*3/uL (4.8-10.8)
[2021-11-10 18:03] LABS: B Type Natriuretic Peptide 47 pg/mL (<100)
[2021-11-10 18:08] LABS: Alanine Aminotransferase 52 U/L (0-31); Albumin Level 4.3 g/dL (3.5-5.0); Alkaline Phosphatase 57 U/L (39-117); Anion Gap 11 (12-20); Aspartate Amino Transferase 39 U/L (5-31); Bilirubin Total 0.5 mg/dL (0.0-1.0); Blood Urea Nitrogen 16 mg/dL (9-16); Calcium 9.6 mg/dL (8.4-10.2); Carbon Dioxide 27 mmol/L (22-29); Chloride 109 mmol/L (96-108); Creatinine Clr Calc Pharmacy 83.7; Estimated Glomerular Filt Rate > 60; Glucose Random 88 mg/dL (60-115); Potassium 4.5 mmol/L (3.3-5.1); Sodium 142 mmol/L (135-145); Total Protein 7.3 g/dL (6.5-8.0)
[2021-11-10 23:06] VITALS: BP 156/85; PULSE 81; RESP 18; O2SAT 97
--- NOTE | 2021-11-10 23:16 | ED_ITS ---
HPI - Extremity Problem General Chief complaint: Extremity Problem Stated complaint: bilat leg swollen and red pain to touch Time Seen by Provider: 11/10/21 23:15 Source: patient Mode of arrival: ambulatory History of Present Illness HPI Narrative: 55-year-old female who presents with several weeks of bilateral lower extremity edema without associated fevers, chills, cough, shortness of breath, chest pain/palpitations, orthopnea. Patient states that the swelling does resolve when she sleeps at night with her feet elevated. She denies using any steroids at present. 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 Related Data Home Medications Medication Instructions Recorded Confirmed acetaminophen 650 mg 650 mg PO BID 08/14/20 08/04/21 tablet,extended release aspirin 81 mg tablet,delayed 81 mg PO DAILY 08/14/20 08/04/21 release bupropion HCl 300 mg 24 hr tablet, 300 mg PO DAILY 08/14/20 08/04/21 extended release citalopram 40 mg tablet 40 mg PO BEDTIME 08/14/20 08/04/21 ferrous sulfate 325 mg (65 mg 325 mg PO DAILY 08/14/20 08/04/21 iron) tablet hydroxyzine pamoate 25 mg capsule 25 mg PO BID PRN 08/14/20 08/04/21 ropinirole 0.5 mg tablet 0.5 mg PO BEDTIME 08/14/20 08/04/21 sumatriptan succinate 50 mg tablet 50 mg PO DAILY PRN 08/14/20 08/04/21 topiramate 25 mg tablet 25 mg PO DAILY 08/14/20 08/04/21 cholecalciferol (vitamin D3) 25 25 mcg PO DAILY 11/06/20 08/04/21 mcg (1,000 unit) capsule fexofenadine 180 mg tablet 180 mg PO DAILY 11/06/20 08/04/21 (Miladis Allergy) dexlansoprazole 60 mg 60 mg PO DAILY 02/05/21 08/04/21 capsule,biphase delayed release (Dexilant) Previous Rx's Medication Instructions Recorded folic acid 1 mg tablet 1 mg PO DAILY #90 tab 04/23/21 polysaccharide iron complex 150 mg 1 cap PO DAILY #90 cap 04/24/21 iron capsule (Poly-Iron) miscellaneous medical supply 1 ea MISCELLANEOUS DAILY #1 ea 04/28/21 miscellaneous medical supply 1 ea MISCELLANEOUS DAILY #1 ea 04/28/21 gabapentin 400 mg capsule 400 mg PO TID #90 cap 05/22/21 verapamil 180 mg tablet,extended 180 mg PO DAILY #90 tab 08/03/21 release methotrexate sodium 2.5 mg tablet 10 mg PO QWEEK #48 tab 08/07/21 cyanocobalamin (vitamin B-12) 1,000 mcg SUBLINGUAL DAILY #90 tab 08/31/21 1,000 mcg sublingual tablet pravastatin 40 mg tablet 40 mg PO BEDTIME #90 tab 09/10/21 ethacrynic acid 25 mg tablet 50 mg PO DAILY #60 tab 10/15/21 Allergies Allergy/AdvReac Type Severity Reaction Status Date / Time amoxicillin [AMOXICILLIN] Allergy Intermediate FACIAL Verified 11/10/21 23:08 SWELLING, swollen face Sulfa (Sulfonamide Allergy Unknown red Verified 11/10/21 23:08 Antibiotics) patches all over legs sulfamethoxazole Allergy Blister Verified 11/10/21 23:08 [From Bactrim] trimethoprim [From Bactrim] Allergy Blister Verified 11/10/21 23:08 Review of Systems Review of Systems: Pertinent positives and negatives as stated in HPI 10 point review of systems is otherwise negative. [facility] Past Medical History Source: nursing notes reviewed Medical History DASHAWN positive Dyslipidemia Essential hypertension Positive anti-CCP test Surgical History History of breast biopsy History of colonoscopy History of partial hysterectomy History of tonsillectomy Family History Family History Father Lung cancer Mother Emphysema, unspecified Brother No problems noted. Brother No problems noted. Brother No problems noted. Sister No problems noted. Sister No problems noted. Sister No problems noted. Sister No problems noted. Sister No problems noted. Sister No problems noted. Sister No problems noted. 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 GENERAL: Well developed, well nourished, in no acute distress. HEAD: Normocephalic/atraumatic EYES: PERRLA, EOMI OROPHARYNX: no oral lesions noted, posterior pharynx clear LUNGS: Normal breath sounds. No adventitious sounds or accessory muscle use. SpO2<97> CARDIOVASCULAR: Regular rate and rhythm without noted murmurs, no JVD bilateral 2+ pitting edema ABDOMEN: Soft, non-tender, non-distended with bowel sounds. MUSCULOSKELETAL: No tenderness, deformities, or effusions noted on gross inspection. EXTREMITIES: No cyanosis, clubbing but bilateral pitting 2+ edema noted without ulcerations/erythema/induration and no tactile warmth noted SKIN: Inspection of the skin reveals no rashes NEUROLOGIC: Alert and oriented x 4. Strength and sensation to light touch were grossly intact x 4. Course Course Course Narrative: This is a 55-year-old female with history and clinical presentation most consistent with significant venous stasis after review of all investigations there are no acute findings to suggest cellulitis, CHF, DVT. In addition, there is mild bronzing noted to the bilateral lower extremities indicative of chronic insufficiency. All results and findings were discussed with the patient at bedside and she was strongly encouraged to resume using compression stockings and continue to elevated night. MDM - Extremity (Nontraumatic) Lab Data Result diagrams: 11/10/21 17:28 11/10/21 17:28 Labs: Lab Results 11/10/21 11/10/21 11/10/21 Range/Units 17:28 17:28 17:28 WBC 5.7 (4.8-10.8) X10*3/uL RBC 4.37 (4.20-5.50) X10*6/uL Hgb 13.0 (12.0-16.0) g/dl Hct 40.6 (37.0-47.0) % MCV 92.9 (80.0-98.0) fL MCH 29.7 (27.0-33.0) pg MCHC 32.0 (31.0-35.0) g/dl RDW 13.5 (11.0-16.0) % Plt Count 324 (160-400) X10*3/uL MPV 9.0 L (9.4-12.3) fL Immature Gran % (Auto) 0.4 (0.0-0.4) % Neut % (Auto) 48.5 (45-73) % Lymph % (Auto) 36.4 (20-40) % [place] % (Auto) 8.0 (2-11) % Eos % (Auto) 5.8 H (0-4) % Baso % (Auto) 0.9 (0-2) % Lymph # (Auto) 2.1 (1.2-4.9) X10*3/uL [place] # (Auto) 0.5 (0.1-1.2) X10*3/uL Eos # (Auto) 0.3 (0.0-0.4) X10*3/uL Baso # (Auto) 0.1 (0.0-0.2) X10*3/uL Abs Immat Gran (auto) 0.02 (0.00-0.03) X10*3/uL Absolute Neuts (auto) 2.8 (2.0-8.3) x10*3/uL Absolute Nucleated RBC 0.000 (0.0-0.012) X10*3/uL Nucleated RBC % (auto) 0.0 (0.0-0.2) /100WBC Sodium 142 (135-145) mmol/L Potassium 4.5 (3.3-5.1) mmol/L Chloride 109 H (96-108) mmol/L Carbon Dioxide 27 (22-29) mmol/L Anion Gap 11 L (12-20) BUN 16 (9-16) mg/dL Creatinine 0.86 (0.5-1.4) mg/dL Estim Creat Clear Calc 83.7 Estimated GFR > 60 Random Glucose 88 (60-115) mg/dL Calcium 9.6 (8.4-10.2) mg/dL Total Bilirubin 0.5 (0.0-1.0) mg/dL AST 39 H D (5-31) U/L ALT 52 H (0-31) U/L Alkaline Phosphatase 57 D (39-117) U/L B-Natriuretic Peptide 47 (<100) pg/mL Total Protein 7.3 (6.5-8.0) g/dL Albumin 4.3 (3.5-5.0) g/dL Discharge Plan Discharge Clinical Impression: Chronic venous insufficiency Patient Disposition: Home, Self-Care Instructions: Venous Insufficiency (DC) Additional Instructions: 1. Resume all home medications as prescribed. 2. Recommend using compression stockings that are at a minimum 30mmHg and the should be used daily as you spend a significant amount of time on your feet. 3. Please follow-up with your primary care provider in next 1-2 days. Return to the ER for acute worsening of symptoms. Prescriptions: No Action folic acid 1 mg tablet 1 mg PO DAILY Qty: 90 RF: 1 miscellaneous medical supply Misc 1 ea miscellaneous DAILY Qty: 1 RF: 0 miscellaneous medical supply Misc 1 ea miscellaneous DAILY Qty: 1 RF: 0 gabapentin 400 mg capsule 400 mg PO TID Qty: 90 RF: 5 verapamil 180 mg tablet extended release 180 mg PO DAILY Qty: 90 RF: 3 methotrexate sodium 2.5 mg tablet 10 mg PO QWEEK Qty: 48 RF: 0 cyanocobalamin (vitamin B-12) 1,000 mcg tablet, sublingual 1,000 mcg sublingual DAILY Qty: 90 RF: 0 pravastatin 40 mg tablet 40 mg PO BEDTIME Qty: 90 RF: 1 ethacrynic acid 25 mg tablet 50 mg PO DAILY Qty: 60 RF: 0 Dexilant 60 mg Capsule,Biphase Delayed Releas 60 mg PO DAILY RF: 0 polysaccharide iron complex [Poly-Iron] 150 mg iron capsule 1 cap PO DAILY Qty: 90 RF: 4 ropinirole 0.5 mg tablet 0.5 mg PO BEDTIME RF: 0 topiramate 25 mg tablet 25 mg PO DAILY RF: 0 sumatriptan succinate 50 mg tablet 50 mg PO DAILY PRN (Reason: Headache) RF: 0 bupropion HCl 300 mg tablet extended release 24 hr 300 mg PO DAILY RF: 0 citalopram 40 mg tablet 40 mg PO BEDTIME RF: 0 hydroxyzine pamoate 25 mg capsule 25 mg PO BID PRN (Reason: anxiety) RF: 0 aspirin 81 mg tablet,delayed release (DR/EC) 81 mg PO DAILY RF: 0 acetaminophen 650 mg tablet extended release 650 mg PO BID RF: 0 ferrous sulfate 325 mg (65 mg iron) tablet 325 mg PO DAILY RF: 0 fexofenadine [Miladis Allergy] 180 mg tablet 180 mg PO DAILY RF: 0 cholecalciferol (vitamin D3) 25 mcg (1,000 unit) capsule 25 mcg PO DAILY RF: 0 Referrals: Alejandra Valencia MD [Primary Care Provider] - 2 days
== END 2021-11-10 23:54 | disposition home or self-care (01) ==
PROVIDERS: Emergency Provider Student in an Organized Health Care Education/Training Program; PCP Internal Medicine
DX: I87.2 Venous insufficiency (chronic) (peripheral) (principal); R60.0 Localized edema; I10 Essential (primary) hypertension
CPT/HCPCS: 36415; 80053; 83880; 85025; 93970; 99284

== ENCOUNTER 2021-12-24 09:35 | Outpatient (REF) | payer OTHER, SELFPAY ==
[2021-12-24 11:39] LABS: Cholesterol 211 mg/dL; HDL Cholesterol 52 mg/dL; LDL Cholesterol Calculated 122 mg/dl; Triglycerides 186 mg/dL
== END 2021-12-24 09:36 | disposition home or self-care (01) ==
LOC: HO.HMGCLDS 09:35
PROVIDERS: PCP Internal Medicine; Visit Provider Internal Medicine
DX: E78.5 Hyperlipidemia, unspecified (principal)
CPT/HCPCS: 36415; 80061

== ENCOUNTER → 2022-02-08 14:05 | Outpatient (BNVA) | payer OTHER, SELFPAY | PROVIDERS: PCP Internal Medicine; Visit Provider Internal Medicine Rheumatology | DX: M05.9 Rheumatoid arthritis with rheumatoid factor, unspecified (principal); M79.7 Fibromyalgia; M47.816 Spondylosis without myelopathy or radiculopathy, lumbar region; R74.01 Elevation of levels of liver transaminase levels; Z79.899 Other long term (current) drug therapy; Z98.890 Other specified postprocedural states | CPT/HCPCS: 99212 ==

== ENCOUNTER → 2022-02-18 15:12 | Outpatient (BNVA) | payer OTHER, SELFPAY | PROVIDERS: PCP Internal Medicine; Visit Provider Physician Assistant | DX: M25.511 Pain in right shoulder (principal); M25.512 Pain in left shoulder; M25.562 Pain in left knee; M54.50 Low back pain, unspecified | CPT/HCPCS: 20610; 99212; J1040 ==

== ENCOUNTER → 2022-04-05 14:43 | Outpatient (BNVA) | payer OTHER, SELFPAY | PROVIDERS: PCP Internal Medicine; Visit Provider Internal Medicine | DX: M47.816 Spondylosis without myelopathy or radiculopathy, lumbar region (principal); M25.562 Pain in left knee | CPT/HCPCS: 20610; 99212; J2795; J3300 ==

== ENCOUNTER 2022-05-28 07:22 | Outpatient (REF) | payer OTHER, SELFPAY ==
--- NOTE | ~2022-05-28 | XR_ITS ---
EXAMINATION: XR SHOULDER, BILATERAL CLINICAL INFORMATION: Bilateral shoulder pain. COMPARISON: 02/10/2021 TECHNIQUE: 3 views of each shoulder FINDINGS: RIGHT SHOULDER: A calcification overlies the supraspinatus tendon consistent with calcific tendinitis. This is more conspicuous than the previous study. There is moderate acromioclavicular osteoarthritis. Minimal degenerative spurring along the greater tuberosity. No acute osseous abnormality. LEFT SHOULDER: Normal alignment with no fracture. Mild acromioclavicular and glenohumeral osteoarthritis. A tiny calcific density overlying the supraspinatus tendon insertion is a new finding and likely represents minimal calcific tendinitis. XR/XR shoulder LT min 2V IMPRESSION: Right shoulder: Supraspinatus calcific tendinitis. Moderate acromioclavicular osteoarthritis. Left shoulder: Mild acromioclavicular and glenohumeral osteoarthritis. Probable minimal calcific tendinitis of the supraspinatus tendon insertion, new from previous.
--- NOTE | ~2022-05-28 | XR_ITS ---
EXAMINATION: XR SHOULDER, BILATERAL CLINICAL INFORMATION: Bilateral shoulder pain. COMPARISON: 02/10/2021 TECHNIQUE: 3 views of each shoulder FINDINGS: RIGHT SHOULDER: A calcification overlies the supraspinatus tendon consistent with calcific tendinitis. This is more conspicuous than the previous study. There is moderate acromioclavicular osteoarthritis. Minimal degenerative spurring along the greater tuberosity. No acute osseous abnormality. LEFT SHOULDER: Normal alignment with no fracture. Mild acromioclavicular and glenohumeral osteoarthritis. A tiny calcific density overlying the supraspinatus tendon insertion is a new finding and likely represents minimal calcific tendinitis. XR/XR shoulder RT min 2V IMPRESSION: Right shoulder: Supraspinatus calcific tendinitis. Moderate acromioclavicular osteoarthritis. Left shoulder: Mild acromioclavicular and glenohumeral osteoarthritis. Probable minimal calcific tendinitis of the supraspinatus tendon insertion, new from previous.
== END 2022-05-28 07:23 | disposition home or self-care (01) ==
LOC: HO.HOSX 07:22
PROVIDERS: Visit Provider Physician Assistant
DX: M25.511 Pain in right shoulder (principal); M25.512 Pain in left shoulder
CPT/HCPCS: 73030; 99212; J1040

== ENCOUNTER 2022-06-03 12:35 | Outpatient (REF) | payer OTHER, SELFPAY ==
[2022-06-03 13:08] LABS: MANUAL DIFF FLAG NO
[2022-06-03 13:28] LABS: Basophils Absolute Auto 0.1 X10*3/uL (0.0-0.2); Basophils Percent Auto 0.9 % (0-2); Eosinophils Absolute Auto 0.1 X10*3/uL (0.0-0.4); Eosinophils Percent Auto 1.1 % (0-4); Hematocrit 42.4 % (37.0-47.0); Hemoglobin 13.6 g/dl (12.0-16.0); Imm Gran Abs Auto 0.05 X10*3/uL (0.00-0.03); Imm Gran Pct Auto 0.5 % (0.0-0.4); Lymphocytes Percent Auto 29.4 % (20-40); Mean Corpuscular HGB Conc 32.1 g/dl (31.0-35.0); Mean Corpuscular Hemoglobin 29.8 pg (27.0-33.0); Mean Corpuscular Volume 92.8 fL (80.0-98.0); Mean Platelet Volume 8.8 fL (9.4-12.3); Monocytes Absolute Auto 0.8 X10*3/uL (0.1-1.2); Monocytes Percent Auto 8.2 % (2-11); Neutrophils Absolute Auto 6.1 x10*3/uL (2.0-8.3); Neutrophils Percent Auto 59.9 % (45-73); Platelet Count 422 X10*3/uL (160-400); Red Blood Count 4.57 X10*6/uL (4.20-5.50); White Blood Count 10.1 X10*3/uL (4.8-10.8)
[2022-06-03 13:54] LABS: Alanine Aminotransferase 27 U/L (0-31); Aspartate Amino Transferase 12 U/L (5-31); C Reactive Protein 0.11 mg/dL (< or = 0.50); Estimated Glomerular Filt Rate 55
[2022-06-03 14:12] LABS: Erythrocyte Sedimentation Rate 4 MM/HR (0-20)
== END 2022-06-03 12:36 | disposition home or self-care (01) ==
LOC: HO.LAB 12:35
PROVIDERS: PCP Internal Medicine; Visit Provider Internal Medicine Rheumatology
DX: M05.9 Rheumatoid arthritis with rheumatoid factor, unspecified (principal); Z79.899 Other long term (current) drug therapy
CPT/HCPCS: 36415; 82565; 84450; 84460; 85025; 85652; 86140

== ENCOUNTER → 2022-06-07 14:00 | Outpatient (BNVA) | payer OTHER, SELFPAY | PROVIDERS: PCP Internal Medicine; Visit Provider Internal Medicine Rheumatology | DX: M05.9 Rheumatoid arthritis with rheumatoid factor, unspecified (principal); M79.7 Fibromyalgia; Z79.899 Other long term (current) drug therapy | CPT/HCPCS: 99212 ==

== ENCOUNTER 2022-06-16 06:05 | Outpatient (REF) | payer OTHER, SELFPAY ==
--- NOTE | ~2022-06-16 | FL_ITS ---
EXAMINATION: XR FLUOROSCOPY WITH IMAGES CLINICAL INFORMATION: Spondylosis. COMPARISON: None. TECHNIQUE: Fluoroscopy performed by FAROOQ Lara. Fluoroscopy time: 0.3. Cumulative Dose: 16.6 mGy. DAP: 1.8 Gy-cm2. Images: 3. FINDINGS: Images demonstrate needle placement and contrast injection adjacent to the bilateral lateral L4 and L5 vertebral bodies. FL/FL guidance in treatment room IMPRESSION: Fluoroscopy guidance for pain management procedure.
== END 2022-06-16 06:06 | disposition home or self-care (01) ==
LOC: HO.RADIR 06:05
PROVIDERS: Visit Provider Internal Medicine
DX: M47.816 Spondylosis without myelopathy or radiculopathy, lumbar region (principal)
CPT/HCPCS: 64493; 64494

== ENCOUNTER 2022-08-11 14:31 | Outpatient (REF) | payer OTHER, SELFPAY ==
[2022-08-11 14:45] LABS: MANUAL DIFF FLAG NO
[2022-08-11 15:12] LABS: Basophils Absolute Auto 0.1 X10*3/uL (0.0-0.2); Basophils Percent Auto 0.9 % (0-2); Eosinophils Absolute Auto 0.5 X10*3/uL (0.0-0.4); Eosinophils Percent Auto 6.6 % (0-4); Hematocrit 39.2 % (37.0-47.0); Hemoglobin 12.6 g/dl (12.0-16.0); Imm Gran Abs Auto 0.02 X10*3/uL (0.00-0.03); Imm Gran Pct Auto 0.3 % (0.0-0.4); Lymphocytes Absolute Auto 2.6 X10*3/uL (1.2-4.9); Lymphocytes Percent Auto 38.2 % (20-40); Mean Corpuscular HGB Conc 32.1 g/dl (31.0-35.0); Mean Corpuscular Hemoglobin 29.8 pg (27.0-33.0); Mean Corpuscular Volume 92.7 fL (80.0-98.0); Mean Platelet Volume 8.8 fL (9.4-12.3); Monocytes Absolute Auto 0.4 X10*3/uL (0.1-1.2); Monocytes Percent Auto 5.9 % (2-11); Neutrophils Absolute Auto 3.3 x10*3/uL (2.0-8.3); Neutrophils Percent Auto 48.1 % (45-73); Platelet Count 333 X10*3/uL (160-400); Red Blood Count 4.23 X10*6/uL (4.20-5.50); Red Cell Distribution Width 13.5 % (11.0-16.0); White Blood Count 6.8 X10*3/uL (4.8-10.8)
[2022-08-11 15:47] LABS: Alanine Aminotransferase 34 U/L (0-31); Aspartate Amino Transferase 21 U/L (5-31); Estimated Glomerular Filt Rate > 60
[2022-08-11 15:53] LABS: Erythrocyte Sedimentation Rate 6 MM/HR (0-20)
== END 2022-08-11 14:32 | disposition home or self-care (01) ==
LOC: HO.LAB 14:31
PROVIDERS: PCP Internal Medicine; Visit Provider Internal Medicine Rheumatology
DX: M05.9 Rheumatoid arthritis with rheumatoid factor, unspecified (principal); Z79.899 Other long term (current) drug therapy
CPT/HCPCS: 36415; 82565; 84450; 84460; 85025; 85652; 86140

== ENCOUNTER → 2022-08-30 15:27 | Outpatient (BNVA) | payer OTHER, SELFPAY | PROVIDERS: PCP Internal Medicine; Visit Provider Physician Assistant | DX: M25.511 Pain in right shoulder (principal); M25.512 Pain in left shoulder | CPT/HCPCS: 20610; 99212; J1040 ==

== ENCOUNTER 2022-09-29 13:46 | Outpatient (REF) | payer OTHER, SELFPAY ==
[2022-09-29 13:57] LABS: MANUAL DIFF FLAG NO
[2022-09-29 14:40] LABS: Basophils Absolute Auto 0.1 X10*3/uL (0.0-0.2); Basophils Percent Auto 0.9 % (0-2); Eosinophils Absolute Auto 0.4 X10*3/uL (0.0-0.4); Eosinophils Percent Auto 5.7 % (0-4); Hematocrit 40.5 % (37.0-47.0); Hemoglobin 12.7 g/dl (12.0-16.0); Imm Gran Abs Auto 0.02 X10*3/uL (0.00-0.03); Imm Gran Pct Auto 0.3 % (0.0-0.4); Lymphocytes Absolute Auto 2.6 X10*3/uL (1.2-4.9); Lymphocytes Percent Auto 36.6 % (20-40); Mean Corpuscular HGB Conc 31.4 g/dl (31.0-35.0); Mean Corpuscular Volume 95.5 fL (80.0-98.0); Mean Platelet Volume 9.1 fL (9.4-12.3); Monocytes Absolute Auto 0.5 X10*3/uL (0.1-1.2); Neutrophils Absolute Auto 3.5 x10*3/uL (2.0-8.3); Neutrophils Percent Auto 49.5 % (45-73); Platelet Count 346 X10*3/uL (160-400); Red Blood Count 4.24 X10*6/uL (4.20-5.50); Red Cell Distribution Width 13.2 % (11.0-16.0); White Blood Count 7.1 X10*3/uL (4.8-10.8)
[2022-09-29 15:12] LABS: Alanine Aminotransferase 32 U/L (0-31); Aspartate Amino Transferase 21 U/L (5-31); C Reactive Protein 0.35 mg/dL (< or = 0.50)
[2022-09-29 17:46] LABS: Erythrocyte Sedimentation Rate 5 MM/HR (0-20)
== END 2022-09-29 13:47 | disposition home or self-care (01) ==
LOC: HO.LAB 13:46
PROVIDERS: PCP Internal Medicine; Visit Provider Internal Medicine Rheumatology
DX: Z79.899 Other long term (current) drug therapy (principal)
CPT/HCPCS: 36415; 84450; 84460; 85025; 85652; 86140

== ENCOUNTER → 2022-10-04 14:30 | Outpatient (BNVA) | payer OTHER, SELFPAY | PROVIDERS: PCP Internal Medicine; Referring Provider Internal Medicine; Visit Provider Internal Medicine Rheumatology | DX: M05.9 Rheumatoid arthritis with rheumatoid factor, unspecified (principal); M79.7 Fibromyalgia; R74.01 Elevation of levels of liver transaminase levels; Z79.899 Other long term (current) drug therapy | CPT/HCPCS: 99212 ==

== ENCOUNTER → 2022-11-30 15:01 | Outpatient (BNVA) | payer OTHER, SELFPAY | PROVIDERS: PCP Internal Medicine; Visit Provider Physician Assistant | DX: M25.511 Pain in right shoulder (principal); M25.512 Pain in left shoulder | CPT/HCPCS: 20610; 99212; J1040 ==

== ENCOUNTER 2022-12-21 15:01 | Outpatient (REF) | payer OTHER, SELFPAY ==
[2022-12-21 15:19] LABS: MANUAL DIFF FLAG NO
[2022-12-21 16:04] LABS: Basophils Percent Auto 0.5 % (0-2); Eosinophils Absolute Auto 0.3 X10*3/uL (0.0-0.4); Hematocrit 41.9 % (37.0-47.0); Hemoglobin 13.3 g/dl (12.0-16.0); Imm Gran Abs Auto 0.02 X10*3/uL (0.00-0.03); Imm Gran Pct Auto 0.3 % (0.0-0.4); Lymphocytes Absolute Auto 2.3 X10*3/uL (1.2-4.9); Lymphocytes Percent Auto 31.5 % (20-40); Mean Corpuscular HGB Conc 31.7 g/dl (31.0-35.0); Mean Corpuscular Volume 91.5 fL (80.0-98.0); Mean Platelet Volume 9.2 fL (9.4-12.3); Monocytes Absolute Auto 0.4 X10*3/uL (0.1-1.2); Monocytes Percent Auto 5.8 % (2-11); Neutrophils Absolute Auto 4.2 x10*3/uL (2.0-8.3); Neutrophils Percent Auto 57.9 % (45-73); Platelet Count 323 X10*3/uL (160-400); Red Blood Count 4.58 X10*6/uL (4.20-5.50); White Blood Count 7.3 X10*3/uL (4.8-10.8)
[2022-12-21 16:24] LABS: Alanine Aminotransferase 29 U/L (0-31); Aspartate Amino Transferase 19 U/L (5-31); Estimated Glomerular Filt Rate 58
== END 2022-12-21 15:02 | disposition home or self-care (01) ==
LOC: HO.LAB 15:01
PROVIDERS: PCP Internal Medicine; Visit Provider Internal Medicine Rheumatology
DX: Z79.899 Other long term (current) drug therapy (principal)
CPT/HCPCS: 36415; 82565; 84450; 84460; 85025

== ENCOUNTER 2023-01-26 14:34 | Outpatient (REF) | payer OTHER, SELFPAY ==
[2023-01-26 14:47] LABS: MANUAL DIFF FLAG NO
[2023-01-26 15:55] LABS: Basophils Absolute Auto 0.1 X10*3/uL (0.0-0.2); Basophils Percent Auto 0.9 % (0-2); Eosinophils Absolute Auto 0.5 X10*3/uL (0.0-0.4); Eosinophils Percent Auto 7.9 % (0-4); Hematocrit 40.5 % (37.0-47.0); Hemoglobin 12.9 g/dl (12.0-16.0); Imm Gran Abs Auto 0.01 X10*3/uL (0.00-0.03); Imm Gran Pct Auto 0.2 % (0.0-0.4); Lymphocytes Absolute Auto 2.4 X10*3/uL (1.2-4.9); Lymphocytes Percent Auto 36.8 % (20-40); Mean Corpuscular HGB Conc 31.9 g/dl (31.0-35.0); Mean Corpuscular Hemoglobin 29.3 pg (27.0-33.0); Mean Platelet Volume 9.6 fL (9.4-12.3); Monocytes Absolute Auto 0.6 X10*3/uL (0.1-1.2); Monocytes Percent Auto 8.7 % (2-11); Neutrophils Percent Auto 45.5 % (45-73); Platelet Count 337 X10*3/uL (160-400); Red Cell Distribution Width 13.7 % (11.0-16.0); White Blood Count 6.6 X10*3/uL (4.8-10.8)
[2023-01-26 16:20] LABS: Alanine Aminotransferase 50 U/L (0-31); Aspartate Amino Transferase 27 U/L (5-31); C Reactive Protein 0.33 mg/dL (< or = 0.50); Estimated Glomerular Filt Rate > 60
[2023-01-26 16:35] LABS: Erythrocyte Sedimentation Rate 7 MM/HR (0-20)
== END 2023-01-26 14:35 | disposition home or self-care (01) ==
LOC: HO.LAB 14:34
PROVIDERS: PCP Internal Medicine; Visit Provider Internal Medicine Rheumatology
DX: M05.9 Rheumatoid arthritis with rheumatoid factor, unspecified (principal); Z79.899 Other long term (current) drug therapy
CPT/HCPCS: 36415; 82565; 84450; 84460; 85025; 85652; 86140

== ENCOUNTER → 2023-01-31 14:53 | Outpatient (BNVA) | payer OTHER, SELFPAY | PROVIDERS: PCP Internal Medicine; Visit Provider Internal Medicine Rheumatology | DX: M05.9 Rheumatoid arthritis with rheumatoid factor, unspecified (principal); M79.7 Fibromyalgia; Z79.60 Long term (current) use of unspecified immunomodulators and immunosuppressants | CPT/HCPCS: 99212 ==

== ENCOUNTER → 2023-03-01 15:09 | Outpatient (BNVA) | payer OTHER, SELFPAY | PROVIDERS: PCP Internal Medicine; Visit Provider Physician Assistant | DX: M25.511 Pain in right shoulder (principal); M25.512 Pain in left shoulder | CPT/HCPCS: 20610; 99212; J1040 ==

== ENCOUNTER 2023-04-13 14:57 | Outpatient (REF) | payer OTHER, SELFPAY ==
[2023-04-13 15:25] LABS: MANUAL DIFF FLAG NO
[2023-04-13 15:46] LABS: Basophils Absolute Auto 0.1 X10*3/uL (0.0-0.2); Basophils Percent Auto 0.9 % (0-2); Eosinophils Absolute Auto 0.3 X10*3/uL (0.0-0.4); Eosinophils Percent Auto 4.2 % (0-4); Hematocrit 39.6 % (37.0-47.0); Hemoglobin 12.5 g/dl (12.0-16.0); Imm Gran Abs Auto 0.01 X10*3/uL (0.00-0.03); Imm Gran Pct Auto 0.2 % (0.0-0.4); Lymphocytes Absolute Auto 2.4 X10*3/uL (1.2-4.9); Mean Corpuscular HGB Conc 31.6 g/dl (31.0-35.0); Mean Corpuscular Hemoglobin 29.4 pg (27.0-33.0); Mean Corpuscular Volume 93.2 fL (80.0-98.0); Mean Platelet Volume 9.4 fL (9.4-12.3); Monocytes Absolute Auto 0.5 X10*3/uL (0.1-1.2); Monocytes Percent Auto 8.2 % (2-11); Neutrophils Absolute Auto 3.2 x10*3/uL (2.0-8.3); Neutrophils Percent Auto 49.5 % (45-73); Platelet Count 333 X10*3/uL (160-400); Red Blood Count 4.25 X10*6/uL (4.20-5.50); Red Cell Distribution Width 13.2 % (11.0-16.0); White Blood Count 6.4 X10*3/uL (4.8-10.8)
[2023-04-13 16:09] LABS: Alanine Aminotransferase 34 U/L (0-31); Aspartate Amino Transferase 20 U/L (5-31); C Reactive Protein 0.27 mg/dL (< or = 0.50); Estimated Glomerular Filt Rate 58
[2023-04-13 16:26] LABS: Erythrocyte Sedimentation Rate 8 MM/HR (0-20)
== END 2023-04-13 14:58 | disposition home or self-care (01) ==
LOC: HO.LAB 14:57
PROVIDERS: PCP Internal Medicine; Visit Provider Internal Medicine Rheumatology
DX: M05.9 Rheumatoid arthritis with rheumatoid factor, unspecified (principal); Z79.899 Other long term (current) drug therapy
CPT/HCPCS: 36415; 82565; 84450; 84460; 85025; 85652; 86140

== ENCOUNTER → 2023-04-25 14:47 | Outpatient (BNVA) | payer OTHER, SELFPAY | PROVIDERS: PCP Internal Medicine; Visit Provider Internal Medicine | DX: G89.4 Chronic pain syndrome (principal); M47.816 Spondylosis without myelopathy or radiculopathy, lumbar region; M05.9 Rheumatoid arthritis with rheumatoid factor, unspecified; Z79.60 Long term (current) use of unspecified immunomodulators and immunosuppressants | CPT/HCPCS: 99212 ==

== ENCOUNTER 2023-05-25 14:50 | Outpatient (REF) | payer OTHER, SELFPAY ==
[2023-05-25 15:06] LABS: MANUAL DIFF FLAG NO
[2023-05-25 15:26] LABS: Basophils Absolute Auto 0.1 X10*3/uL (0.0-0.2); Basophils Percent Auto 0.9 % (0-2); Eosinophils Absolute Auto 0.4 X10*3/uL (0.0-0.4); Eosinophils Percent Auto 5.9 % (0-4); Hematocrit 40.8 % (37.0-47.0); Hemoglobin 13.2 g/dl (12.0-16.0); Imm Gran Abs Auto 0.02 X10*3/uL (0.00-0.03); Imm Gran Pct Auto 0.3 % (0.0-0.4); Lymphocytes Absolute Auto 2.7 X10*3/uL (1.2-4.9); Lymphocytes Percent Auto 39.1 % (20-40); Mean Corpuscular HGB Conc 32.4 g/dl (31.0-35.0); Mean Corpuscular Hemoglobin 29.4 pg (27.0-33.0); Mean Corpuscular Volume 90.9 fL (80.0-98.0); Mean Platelet Volume 9.6 fL (9.4-12.3); Monocytes Absolute Auto 0.6 X10*3/uL (0.1-1.2); Monocytes Percent Auto 8.6 % (2-11); Neutrophils Absolute Auto 3.1 x10*3/uL (2.0-8.3); Neutrophils Percent Auto 45.2 % (45-73); Platelet Count 313 X10*3/uL (160-400); Red Blood Count 4.49 X10*6/uL (4.20-5.50); White Blood Count 6.8 X10*3/uL (4.8-10.8)
[2023-05-25 16:24] LABS: Alanine Aminotransferase 25 U/L (0-31); Albumin Level 4.3 g/dL (3.5-5.0); Alkaline Phosphatase 51 U/L (39-117); Anion Gap 14 (12-20); Aspartate Amino Transferase 17 U/L (5-31); Bilirubin Total 0.3 mg/dL (0.0-1.0); Blood Urea Nitrogen 17 mg/dL (9-16); C Reactive Protein 0.23 mg/dL (< or = 0.50); Calcium 10.3 mg/dL (8.4-10.2); Carbon Dioxide 24 mmol/L (22-29); Chloride 108 mmol/L (96-108); Erythrocyte Sedimentation Rate 5 MM/HR (0-20); Estimated Glomerular Filt Rate 60; Glucose Random 87 mg/dL (60-115); Potassium 3.8 mmol/L (3.3-5.1); Sodium 142 mmol/L (135-145)
== END 2023-05-25 14:51 | disposition home or self-care (01) ==
LOC: HO.LAB 14:50
PROVIDERS: PCP Internal Medicine; Visit Provider Internal Medicine Rheumatology
DX: R74.01 Elevation of levels of liver transaminase levels (principal); M05.9 Rheumatoid arthritis with rheumatoid factor, unspecified; Z79.899 Other long term (current) drug therapy
CPT/HCPCS: 36415; 80053; 85025; 85652; 86140

== ENCOUNTER 2023-05-30 15:11 | Outpatient (AMB) | payer OTHER, SELFPAY ==
--- NOTE | 2023-05-30 15:12 | A.OFFVIS_ITS ---
Intake Vital Signs 05/30/23 15:13 Height 5 ft 5 in Weight 210 lb 5.136 oz BMI 35.0 BP 112/68 Blood Pressure Location Lt brachial Position Sitting Pulse 76 Pulse Source Pulse Oximeter Temp 97.0 F Temp Source Temporal Artery Scan Pulse Oximetry (%) 98 Oxygen Delivery Method Room Air Intake Visit Reasons: Rheumatoid Arthritis Intake Note: Pt presents today for a f/u for her RA. She is looking to discuss her results from the blood work she got done last week. Allergies amoxicillin [AMOXICILLIN] Allergy (Intermediate, Verified 05/30/23 15:19) FACIAL SWELLING, swollen face Sulfa (Sulfonamide Antibiotics) Allergy (Unknown, Verified 05/30/23 15:19) red patches all over legs Medication List - Last Reconciled 05/30/23 by Fareed Chawla MD acetaminophen ER 650 mg PO BID aspirin 81 mg PO DAILY bupropion HCl 300 mg PO DAILY cholecalciferol (vitamin D3) 25 mcg PO DAILY citalopram 40 mg PO BEDTIME cyanocobalamin (vitamin B-12) 1,000 mcg sublingual DAILY diclofenac sodium 1% 2 grams topical QID PRN fexofenadine (Miladis Allergy) 180 mg PO DAILY folic acid 1 mg PO DAILY furosemide 20 mg PO QAM gabapentin 400 mg PO TID hydroxyzine pamoate 25 mg PO BID mesalamine 4.8 grams PO DAILY metronidazole 0.75% 0.75 appl topical DAILY omeprazole 20 mg PO BID pravastatin 40 mg PO BEDTIME ropinirole 0.5 mg PO BEDTIME sumatriptan succinate 50 mg PO DAILY PRN topiramate 25 mg PO DAILY verapamil ER 180 mg PO DAILY HPI HPI Comments History of Present Illness Details The patient returns for evaluation of what is thought to be rheumatoid arthritis. We had to stop her methotrexate recently because of elevated transaminases. She had no GI side effects with it. She had been on it since 2020. We had cut the dose down to 5 mg weekly but she still had elevations so it was stopped a few weeks ago. She has not really felt any different being off the methotrexate so far. She gets low back pain. She after the last visit she had more pain in the left buttock radiating down the leg. That lasted for a week or 2 and then subsided. She does see pain management. They are consid ering a nerve stimulator in the back but she wants to wait until after the summer because she likes to go in her pool. She gets some aching in the fingers at times and then the shoulders. There is also a plan for a corticosteroid injection in the shoulders from Orthopedics. She notes the occurrence of a lesion on the right pretibial area. She is worried about this because in the past she had the development of her rather persistent ulcer on the pretibial region that was thought to be pyoderma gangrenosum. This was treated with subcutaneous injection in cream in gradually did resolve over the left her with some scarring. She had a smaller similar lesion on the left pretibial area in the past. She does have chronic leg swelling with some petechial lesions anteriorly bilaterally that are chronic. 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 Brother No problems noted. Sister Mental health disorder Sister Mental health disorder Sister Mental health disorder Sister No problems noted. Sister No problems noted. Sister No problems noted. Sister No problems noted. 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 Negative chest pain, palpitations and syncope Resp Details: Negative for SOB, cough and wheezing GI Details: Negative indigestion/heartburn, nausea, abdominal pain, bowel changes, diarrhea, constipation and bloody stool. Psych Details: anxiety, depression controlled with current treatment Endo Details: Negative for polyuria and polydypsia Tex/Lymph Details: Negative for excessive bruising or bleeding. Physical Exam Vital Signs: Last Vital Signs Temp 97.0 F 05/30/23 15:13 Pulse 76 05/30/23 15:13 BP 112/68 05/30/23 15:13 Pulse Ox 98 05/30/23 15:13 Oxygen Delivery Method Room Air 05/30/23 15:13 BMI result Body Mass Index 35.0 APPEARANCE: Patient in no acute distress EYES no redness, pupils equal and reactive to light, eyelids normal EXTREMITIES: Trace pretibial and pedal edema, some pretibial tenderness. no calf tenderness, normal peripheral pulses. SKIN: There is some dusky discoloration and petechial lesions in the pretibial regions. These are chronic. On the right there is a pretibial scar and this to the medial aspect of that is some slight redness and tenderness where she has some inflammatory lesion. She is worried this could be pyoderma gangrenosum starting again. She also has a pretibial scar on the left that is much smaller. Photos of the tibial areas: Left: Right: JOINT EXAM:?? Cervical Spine:.? Mild pain with extremes of normal range of motion.? There is some mild posterior cervical muscle tenderness. Thoracic Spine:.? No scoliosis.? No tenderness on palpation. Lumbar Spine:.? Alignment normal.? Some lumbar pain with flexion at 60 degrees.? There is some paraspinal muscle tenderness. Chest Wall:.? No tenderness, swelling, increased warmth or erythema. Hands:.? Right:? Slight tenderness at the 2nd MCP joint but no soft tissue swelling, flexor tendon triggering, thenar atrophy or sensory loss .? The remainder of the joints have no swelling or tenderness. Left:? Mild tenderness without swelling at the 2nd MCP joints and the 2nd 3rd PIP joints.? There is no tenderness of the flexor tendons. No flexor tendon triggering or swelling is appreciated.? Other joints have no soft tissue swelling, thenar atrophy,? or sensory loss. Wrists:? Mild pain with extremes of flexion or extension.? Slight tenderness but no swelling, increased warmth or erythema. Elbows:. Normal pain-free range of motion without tenderness, swelling, increased warmth or erythema. Shoulders:? Right:? Mild pain with abduction 150 degrees or with extremes of internal or external rotation.? Mild anterior tenderness.? No swelling, adenopathy or weakness.? Left:? Full range of motion with slight discomfort at the extremes of motion.? There is mild anterior tenderness without adenopathy, weakness, swelling, increased warmth or erythema. Hips:.? Full range of motion without pain. Hip bursa: Mild trochanteric tenderness. Knees:.??Right: Normal pain-free range of motion with mild patellofemoral crepitus but no effusion, swelling, increased warmth or erythema.? There is mild medial tenderness.? Left:? Mild to moderate patellofemoral crepitus and no pain with extremes of flexion.? There is some minimal medial tenderness without redness or effusion. Ankles:? Normal pain-free range of motion without tenderness, swelling, increased warmth or erythema. Feet: Right:? Healed surgery of the right 1st MTP.? No tenderness or soft tissue swelling.? Left:? There are surgical scars over the 1st through 3 MTP regions.? She has had a fusion at the 1st MTP.? There is shortening of the 4th toe she says some surgical removal and problems with an implant.? These MTP joints are slightly tender but without soft tissue swelling, increased warmth or erythema. Tender points:?Mild tenderness to digital palpation at the? trapezius, second rib, lateral epicondyle, knees, greater trochanter area bilaterally. ? Results Reviewed Results Reviewed: Laboratory Tests 01/26/23 01/26/23 01/26/23 14:46 14:46 14:46 WBC 6.6 Hgb 12.9 ESR 7 Creatinine 0.95 AST 27 ALT 50 H C-Reactive Protein 0.33 04/13/23 04/13/23 05/25/23 15:24 15:24 15:04 WBC 6.8 Hgb 13.2 ESR 8 Creatinine AST 20 ALT 34 H C-Reactive Protein 0.27 05/25/23 05/25/23 15:04 15:04 WBC Hgb ESR 5 Creatinine 0.96 AST 17 ALT 25 C-Reactive Protein 0.23 Assessment & Plan Assessment & Plan (1) Osteoarthritis of lumbar spine: Code(s): M47.816 - Spondylosis without myelopathy or radiculopathy, lumbar region (2) Fibromyalgia: Code(s): M79.7 - Fibromyalgia (3) Elevated transaminase measurement: Code(s): R74.01 - Elevation of levels of liver transaminase levels (4) Pyoderma gangrenosum due to inflammatory bowel disease: Code(s): L88 - Pyoderma gangrenosum; K52.9 - Noninfective gastroenteritis and colitis, unspecified (5) Ulcerative colitis: Comment: Onset 2003:treated with prednisone for a few years now on mesalamine Code(s): K51.90 - Ulcerative colitis, unspecified, without complications (6) Seropositive rheumatoid arthritis: Comment: CCP, DASHAWN pos. anti DNA, anti RENAY negative; on methotrexate since 2020; methotrexate stopped April 2023 due to LFT elevations Code(s): M05.9 - Rheumatoid arthritis with rheumatoid factor, unspecified Plan She had been on a very low dose of methotrexate and the LFTs remained elevated s o we have stopped it now. There has been no flare of inflammatory symptoms or signs so far. I suspect much of her pain now is due to osteoarthritis and fibromyalgia so we will for now hold the immunosuppressive drugs. She could also have intermittent inflammatory arhtritis accompanying her inflammatory bowel disease. She remains on mesalamine for ulcerative colitis and now has a slightly tender skin lesion on the right pretibial region. There are other pretibial scars. She may have some recurrence of her pyoderma gangrenosum so I will prescribe some triamcinolone ointment for that. She had some back pain radiating down the left leg consistent with some sciatica due to degenerative disease. I think it is therefore appropriate she follow-up is planned in pain management. She is already on antidepressants and gabapentin for fibromyalgia symptoms. Those can be continued and we will recheck her for inflammatory joint disease again in about 3 months. I asked her to do some lab work before that visit including Chem panel CBC and inflammatory markers. Today's visit took 33 minutes. Orders: Orders Erythrocyte Sedimentation Rate Today K51.90 - Ulcerative colitis, unspecified, without complications, K52.9 - Noninfective gastroenteritis and colitis, unspecified, L88 - Pyoderma gangrenosum Complete Blood Count Auto Diff Today K51.90 - Ulcerative colitis, unspecified, without complications, K52.9 - Noninfective gastroenteritis and colitis, unspecified, L88 - Pyoderma gangrenosum Comprehensive Met. Panel Today K51.90 - Ulcerative colitis, unspecified, without complications, K52.9 - Noninfective gastroenteritis and colitis, unspecified, L88 - Pyoderma gangrenosum C Reactive Protein Today K51.90 - Ulcerative colitis, unspecified, without complications, K52.9 - Noninfective gastroenteritis and colitis, unspecified, L88 - Pyoderma gangrenosum Medications: New triamcinolone acetonide 0.1% 1 appl topical DAILY 80 grams 0RF K52.9 - Noninfective gastroenteritis and colitis, unspecified, L88 - Pyoderma gangrenosum Discontinued folic acid Discontinued Reason: Doctor's Order 1 mg PO DAILY 90 tabs 3RF M05.9 - Rheumatoid arthritis with rheumatoid factor, unspecified methotrexate sodium 5 mg (2 x 2.5 mg) PO QWEEK 24 tabs 1RF M05.9 - Rheumatoid arthritis with rheumatoid factor, unspecified Coding Level of Care Code Est Pt Level 4 (74826) Diagnoses Osteoarthritis of lumbar spine M47.816 Fibromyalgia M79.7 Elevated transaminase measurement R74.01 Pyoderma gangrenosum due to inflammatory bowel disease L88; K52.9 Ulcerative colitis K51.90 Seropositive rheumatoid arthritis M05.9
[2023-05-30 15:13] VITALS: BP 112/68; PULSE 76; TEMP 36.1; O2SAT 98; BMI 35.0
== END 2023-05-30 16:15 | disposition home or self-care (01) ==
PROVIDERS: PCP Internal Medicine; Visit Provider Internal Medicine Rheumatology
DX: M05.70 Rheumatoid arthritis with rheumatoid factor of unspecified site without organ or systems involvement (principal); K51.90 Ulcerative colitis, unspecified, without complications; M47.816 Spondylosis without myelopathy or radiculopathy, lumbar region; M79.7 Fibromyalgia; R74.01 Elevation of levels of liver transaminase levels; L88 Pyoderma gangrenosum; K52.9 Noninfective gastroenteritis and colitis, unspecified
CPT/HCPCS: 99214

== ENCOUNTER → 2023-05-30 15:11 | Outpatient (BNVA) | payer OTHER, SELFPAY | PROVIDERS: PCP Internal Medicine; Visit Provider Internal Medicine Rheumatology | DX: M47.816 Spondylosis without myelopathy or radiculopathy, lumbar region (principal); M79.7 Fibromyalgia; R74.01 Elevation of levels of liver transaminase levels; L88 Pyoderma gangrenosum; K52.9 Noninfective gastroenteritis and colitis, unspecified; K51.90 Ulcerative colitis, unspecified, without complications; M05.9 Rheumatoid arthritis with rheumatoid factor, unspecified | CPT/HCPCS: 99212 ==

== ENCOUNTER 2023-06-02 14:56 | Outpatient (AMB) | payer OTHER, SELFPAY ==
--- NOTE | 2023-06-02 15:11 | A.OFFVIS_ITS ---
Intake Vital Signs 06/02/23 15:12 Height 5 ft 5 in Weight 210 lb BMI 34.9 Intake Visit Reasons: OV- B/L shoulder pain, last 03/01/23 Intake Note: Sandra is a 57 year old female who presents today for bilateral shoulder pain, last injection . Patient reports she would like to repeat her injections. She states that her last injections lasted her 3 months. Allergies amoxicillin [AMOXICILLIN] Allergy (Intermediate, Verified 05/30/23 15:19) FACIAL SWELLING, swollen face Sulfa (Sulfonamide Antibiotics) Allergy (Unknown, Verified 05/30/23 15:19) red patches all over legs HPI OV- B/L shoulder pain, last 03/01/23 HPI Details 57-year-old female who presents in the office today for a follow up of bilateral shoulder pain. The patient has a cortisone injection in the bilateral shoulders on 03/01/2023, with 3 months of relief. She would like to repeat injection today. 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 Brother No problems noted. Sister Mental health disorder Sister Mental health disorder Sister Mental health disorder Sister No problems noted. Sister No problems noted. Sister No problems noted. Sister No problems noted. 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 No ecchymosis, redness or edema. Patient is lacking about 30? of forward flexion and abduction. Pain with cross- body reach. Negative empty can. Negative drop-arm. NVI. Psych Mental Status: mental status grossly normal Office Procedures Joint Injection/Drain Joint Injection/Drain Primary Site: right shoulder Secondary Site: left shoulder Injected: 80 mg of, DepoMedrol, with 8 mL of (2% plain lido ) and in the subcromial space Approach Used: posterolateral Procedure: The patient tolerated the procedure well, but had some pain with the injection and there was some relief with the local anesthesia Coding 08251 - Large joint Procedure code (CPT) selection complete Results Reviewed Results Reviewed: 06/02/23 15:14 Lidocaine HCl 2 % MPF [Xylocaine 2 % MPF] 5 ml .ROUTE .STK-MED ONE methylPREDNISolone acetate [DEPO-MedroL] 80 mg .ROUTE .STK-MED ONE Assessment & Plan Assessment & Plan (1) Bilateral shoulder pain: Code(s): M25.511 - Pain in right shoulder; M25.512 - Pain in left shoulder Plan Ms. Alvarado is a 57-year-old female who presents in the office today for a follow up of bilateral shoulder pain. The patient has a cortisone injection in the bilateral shoulders on 03/01/2023, with 3 months of relief. She would like to repeat injection today. The patient was offered a cortisone injection in the bilateral shoulders with 80 mg of DepoMedrol. The patient was explained the risk, benefits, and alternatives to receiving this injection. After receiving consent for the injection, the patient had the procedure done while in office today. The patient tolerated the procedure well with no complications. Follow up will be PRN, or sooner if needed. Medications: Discontinued methotrexate sodium 5 mg (2 x 2.5 mg) PO QWEEK 24 tabs 1RF M05.9 - Rheumatoid arthritis with rheumatoid factor, unspecified Patient Instructions: Scribed for Ania Carlton PA-C by Dania Gold medical research associate, on 06/02/2023 at 3:16 pm, EST. Your attestation Coding Level of Care Code Est Pt Level 3 (01325) Diagnoses Bilateral shoulder pain M25.511; M25.512 CPT Codes Coding - 27301 Large joint: 49030 - Large joint ([id number])
[2023-06-02 15:12] VITALS: BMI 34.9
== END 2023-06-02 16:36 | disposition home or self-care (01) ==
PROVIDERS: Visit Provider Physician Assistant
DX: M25.511 Pain in right shoulder (principal); M25.512 Pain in left shoulder
CPT/HCPCS: 20610; 99213

== ENCOUNTER → 2023-06-02 14:56 | Outpatient (BNVA) | payer OTHER, SELFPAY | PROVIDERS: Visit Provider Physician Assistant | DX: M25.511 Pain in right shoulder (principal); M25.512 Pain in left shoulder | CPT/HCPCS: 20610; 99212; J1040 ==

== ENCOUNTER 2023-06-30 15:10 | Outpatient (AMB) | payer OTHER, SELFPAY ==
--- NOTE | 2023-06-30 15:25 | A.OFFPC_ITS ---
<Statement entered by Alejandra Valencia MD - 12/16/25 00:00> This note has been administratively?closed. Vital Signs 06/30/23 15:28 Height 5 ft 5 in Weight 209 lb BMI 34.8 BP 132/84 Blood Pressure Location Rt brachial Position Sitting Pulse 78 Pulse Source Pulse Oximeter Pulse Oximetry (%) 95 Oxygen Delivery Method Room Air Intake Visit Reasons: Problems with both legs Intake Note: Patient here for problems with both legs are painful and always discolored. States vericose veins are painful to the touch. 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 Brother No problems noted. Sister Mental health disorder Sister Mental health disorder Sister Mental health disorder Sister No problems noted. Sister No problems noted. Sister No problems noted. Sister No problems noted. 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 Ezekiel Castañeda, Poonam Aggarwal, Manohar Godinez and colleagues, with an educational brayden from [employer]. Physical exam (Primary Care) Vital Signs: Last Vital Signs Pulse 78 06/30/23 15:28 BP 132/84 06/30/23 15:28 Pulse Ox 95 06/30/23 15:28 Oxygen Delivery Method Room Air 06/30/23 15:28 BMI result Body Mass Index 34.8 Tobacco/Smoking Status: Tobacco use Status Tobacco use date assessed 06/30/23 06/30/23 15:32 Patient Tobacco Use Status Never used Tobacco 06/30/23 15:26 e-Cigarette/Vaping Use Never Used 06/30/23 15:26 Thrive Assessment: Date of Thrive Assessment Date Thrive assessed 12/16/21 06/30/23 15:26 Coding Level of Care Code Admin Sign Off/No Billing Diagnoses Varicose veins of both lower extremities with pain I83.813
[2023-06-30 15:28] VITALS: BP 132/84; PULSE 78; O2SAT 95; BMI 34.8
== END 2023-06-30 17:06 | disposition home or self-care (01) ==
LOC: HO.HMGC 15:10
PROVIDERS: PCP Internal Medicine; Visit Provider Internal Medicine
DX: I83.813 Varicose veins of bilateral lower extremities with pain (principal)
CPT/HCPCS: 99499

== ENCOUNTER 2023-09-01 13:45 | Outpatient (REF) | payer OTHER, SELFPAY ==
[2023-09-01 14:01] LABS: MANUAL DIFF FLAG NO
[2023-09-01 14:08] LABS: Basophils Percent Auto 0.6 % (0-2); Eosinophils Absolute Auto 0.4 X10*3/uL (0.0-0.4); Eosinophils Percent Auto 5.9 % (0-4); Hematocrit 39.4 % (37.0-47.0); Hemoglobin 12.7 g/dl (12.0-16.0); Imm Gran Abs Auto 0.01 X10*3/uL (0.00-0.03); Imm Gran Pct Auto 0.2 % (0.0-0.4); Lymphocytes Absolute Auto 2.1 X10*3/uL (1.2-4.9); Lymphocytes Percent Auto 32.6 % (20-40); Mean Corpuscular HGB Conc 32.2 g/dl (31.0-35.0); Mean Corpuscular Hemoglobin 28.9 pg (27.0-33.0); Mean Corpuscular Volume 89.7 fL (80.0-98.0); Mean Platelet Volume 9.3 fL (9.4-12.3); Monocytes Absolute Auto 0.4 X10*3/uL (0.1-1.2); Neutrophils Absolute Auto 3.5 x10*3/uL (2.0-8.3); Neutrophils Percent Auto 54.7 % (45-73); Platelet Count 316 X10*3/uL (160-400); Red Blood Count 4.39 X10*6/uL (4.20-5.50); Red Cell Distribution Width 13.4 % (11.0-16.0); White Blood Count 6.3 X10*3/uL (4.8-10.8)
[2023-09-01 14:51] LABS: Erythrocyte Sedimentation Rate 5 MM/HR (0-20)
[2023-09-01 15:20] LABS: Alanine Aminotransferase 23 U/L (0-31); Albumin Level 4.3 g/dL (3.5-5.0); Alkaline Phosphatase 54 U/L (39-117); Anion Gap 12 (12-20); Aspartate Amino Transferase 19 U/L (5-31); Bilirubin Total 0.5 mg/dL (0.0-1.0); Blood Urea Nitrogen 11 mg/dL (9-16); C Reactive Protein 0.26 mg/dL (< or = 0.50); Calcium 9.8 mg/dL (8.4-10.2); Carbon Dioxide 25 mmol/L (22-29); Chloride 109 mmol/L (96-108); Estimated Glomerular Filt Rate > 60; Glucose Random 84 mg/dL (60-115); Potassium 3.8 mmol/L (3.3-5.1); Sodium 142 mmol/L (135-145); Total Protein 7.2 g/dL (6.5-8.0)
== END 2023-09-01 13:46 | disposition home or self-care (01) ==
LOC: HO.LAB 13:45
PROVIDERS: PCP Internal Medicine; Visit Provider Internal Medicine Rheumatology
DX: K51.90 Ulcerative colitis, unspecified, without complications (principal); L88 Pyoderma gangrenosum; K52.9 Noninfective gastroenteritis and colitis, unspecified
CPT/HCPCS: 36415; 80053; 85025; 85652; 86140

== ENCOUNTER 2023-09-02 14:17 | Outpatient (AMB) | payer OTHER, SELFPAY ==
--- NOTE | 2023-09-02 14:20 | A.OFFVIS_ITS ---
Intake Intake Visit Reasons: OV- B/L shoulder pain, last 06/02/23 Intake Note: Sandra is a 57 year old left hand dominant female who presents today for bilateral shoulder pain, last injection . Patient reports she would like to repeat her injections. She had about 3-4 months of relief. Allergies amoxicillin [AMOXICILLIN] Allergy (Intermediate, Verified 08/23/23 15:12) FACIAL SWELLING, swollen face Sulfa (Sulfonamide Antibiotics) Allergy (Unknown, Verified 08/23/23 15:12) red patches all over legs HPI OV- B/L shoulder pain, last 06/02/23 HPI Details 57-year-old left hand dominant female margaux yates presents in the office today for a follow up of bilateral shoulder pain. The patient had a cortisone injection in the bilateral shoulders on 06/02/2023, which gave her about 3-4 months of relief. She would like to repeat the injections while in the office today. 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 Brother No problems noted. Sister Mental health disorder Sister Mental health disorder Sister Mental health disorder Sister No problems noted. Sister No problems noted. Sister No problems noted. Sister No problems noted. 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 No ecchymosis, redness or edema. Patient is lacking about 30? of forward flexion and abduction. Pain with cross- body reach. Negative empty can. Negative drop-arm. NVI. Psych Mental Status: mental status grossly normal Office Procedures Joint Injection/Drain Joint Injection/Drain Primary Site: right shoulder Secondary Site: left shoulder Prep: site was prepped using aseptic technique, ethochloride spray was applied and injection warnings given Injected: 80 mg of, DepoMedrol, with 8 mL of (2% plain lido ) and in the subcromial space Approach Used: posterolateral Procedure: The patient tolerated the procedure well, but had some pain with the injection and there was some relief with the local anesthesia Coding 67257 - Large joint Procedure code (CPT) selection complete Results Reviewed Results Reviewed: 09/02/23 14:18 Lidocaine HCl 2 % MPF [Xylocaine 2 % MPF] 5 ml .ROUTE .STK-MED ONE methylPREDNISolone acetate [DEPO-MedroL] 80 mg .ROUTE .STK-MED ONE Assessment & Plan Assessment & Plan (1) Bilateral shoulder pain: Code(s): M25.511 - Pain in right shoulder; M25.512 - Pain in left shoulder Qualifiers: Chronicity: unspecified Qualified Code(s): M25.511 - Pain in right shoulder; M25.512 - Pain in left shoulder Plan Ms. Alvarado is a 57-year-old left hand dominant female who presents in the office today for a follow up of bilateral shoulder pain. The patient had a cortisone injection in the bilateral shoulders on 06/02/2023, which gave her about 3-4 months of relief. She would like to repeat the injections while in the office to day. The patient was offered a cortisone injection in the bilateral shoulders with 80 mg of DepoMedrol. The patient was explained the risk, benefits, and alternatives to receiving this injection. After receiving consent for the injection, the patient had the procedure done while in office today. The patient tolerated the procedure well with no complications. Follow up will be PRN, or sooner if n eeded. Patient Instructions: Scribed for Ania Carlton PA-C by Dania Gold medical collections, on 09/02/2023 at 2:25 pm, EST. Coding Level of Care Code Est Pt Level 3 (17529) Diagnoses Bilateral shoulder pain, unspecified chronicity M25.511; M25.512 Chronicity: unspecified CPT Codes Coding - 25060 Large joint: 79276 - Large joint ([id number])
== END 2023-09-02 14:29 | disposition home or self-care (01) ==
PROVIDERS: PCP Internal Medicine; Visit Provider Physician Assistant
DX: M25.511 Pain in right shoulder (principal); M25.512 Pain in left shoulder
CPT/HCPCS: 20610; 99213

== ENCOUNTER → 2023-09-02 14:17 | Outpatient (BNVA) | payer OTHER, SELFPAY | PROVIDERS: PCP Internal Medicine; Visit Provider Physician Assistant | DX: M25.511 Pain in right shoulder (principal); M25.512 Pain in left shoulder | CPT/HCPCS: 20610; 99212; J1040 ==

== ENCOUNTER 2023-09-05 15:28 | Outpatient (AMB) | payer OTHER, SELFPAY ==
[2023-09-05 15:48] VITALS: BP 124/64; PULSE 75; TEMP 36.6; O2SAT 95; BMI 33.2
--- NOTE | 2023-09-05 15:48 | MHC.OFFVIS ---
Intake Vital Signs 09/05/23 15:48 Height 5 ft 5 in Weight 199 lb 8.293 oz BMI 33.2 BP 124/64 Blood Pressure Location Rt brachial Position Sitting Pulse 75 Pulse Source Pulse Oximeter Temp 98 F Temp Source Skin Pulse Oximetry (%) 95 Oxygen Delivery Method Room Air Intake Visit Reasons: Rheumatoid Arthritis Intake Note: Patient presents today to follow up on RA. Grocery Supervisor Required: No Accompanied by: Self / Same As Patient Allergies amoxicillin [AMOXICILLIN] Allergy (Intermediate, Verified 09/05/23 15:50) FACIAL SWELLING, swollen face Sulfa (Sulfonamide Antibiotics) Allergy (Unknown, Verified 09/05/23 15:50) red patches all over legs Medication List - Last Reconciled 09/05/23 by Fareed Chawla MD acetaminophen ER 650 mg PO BID aspirin 81 mg PO DAILY bupropion HCl 300 mg PO DAILY cholecalciferol (vitamin D3) 25 mcg PO DAILY citalopram 40 mg PO BEDTIME cyanocobalamin (vitamin B-12) 1,000 mcg sublingual DAILY diclofenac sodium 1% 2 grams topical QID PRN fexofenadine (Miladis Allergy) 180 mg PO DAILY furosemide 20 mg PO QAM gabapentin 400 mg PO TID hydroxyzine pamoate 25 mg PO BID mesalamine 4.8 grams PO DAILY omeprazole 20 mg PO BID pravastatin 40 mg PO BEDTIME ropinirole 0.5 mg PO BEDTIME sumatriptan succinate 50 mg PO DAILY PRN topiramate 25 mg PO DAILY verapamil ER 180 mg PO DAILY HPI HPI Comments History of Present Illness Details The patient presents today for evaluation of her polyarthralgias and positive CCP antibody. We had stopped her methotrexate in May because of LFT abnormalities. She had had tapered before that and there really was no change in her muscle or bone pains. About 3 weeks ago she was chasing down one of her cats and seem to acquire a contusion on the right rib area trying to reach behind her washing machine. She still gets lower back pain that is the most problematic area. She did see Pain Management. They are contemplating implantation of a stimulator device. She has not given the okay so far. She remains on acetaminophen 650 a few times a day, bupropion 300 mg daily, citalopram 40 daily, diclofenac gel topically if needed, gabapentin 400 t.i.d., and ropinirole at bedtime. She still is on mesalamine for her inflammatory bowel disease. She also remains on omeprazole, verapamil, pravastatin, p.r.n. Imitrex, and Topamax. 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 She does not think she is any worse or better for not working at present. There is some sedation in the evening when she takes her last gabapentin. She is not sure she has any sedation in the daytime when she takes the mid day dose. She had a skin abnormality on the legs that we thought might be early pyoderma but it never involved. She does have some tenderness to the skin and is planning evaluation with vascular surgery for venous insufficiency. 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 Brother No problems noted. Sister Mental health disorder Sister Mental health disorder Sister Mental health disorder Sister No problems noted. Sister No problems noted. Sister No problems noted. Sister No problems noted. 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 Skin/Breast Details: Tenderness of the skin in a petechial type look to the pretibial regions suggestive of venous insufficiency. Negative for itching, hives, Raynaud's symptoms, sun sensitivity, and skin cancer Tex/Lymph Details: Negative for excessive bruising or bleeding. Physical Exam Vital Signs: Last Vital Signs Temp 98 F 09/05/23 15:48 Pulse 75 09/05/23 15:48 BP 124/64 09/05/23 15:48 Pulse Ox 95 09/05/23 15:48 Oxygen Delivery Method Room Air 09/05/23 15:48 BMI result Body Mass Index 33.2 APPEARANCE: Patient in no acute distress EXTREMITIES: Trace pretibial and pedal edema, some pretibial tenderness. no calf tenderness, normal peripheral pulses. SKIN: There is some dusky discoloration and petechial lesions in the pretibial regions. These are chronic. On the right there is a pretibial scar and this today is not tender or red. She also has a pretibial scar on the left that is much smaller. JOINT EXAM:?? Cervical Spine:.? Mild pain with extremes of normal range of motion.? There is some mild posterior cervical muscle tenderness. Thoracic Spine:.? No scoliosis.? No tenderness on palpation. Lumbar Spine:.? Alignment normal.? Some lumbar pain with flexion at 60 degrees.? There is some paraspinal muscle tenderness. Chest Wall:.? There is tenderness around the right costal margin. No areas of redness or bruising. Hands:.? Right:? Slight tenderness at the 2nd MCP joint but no soft tissue swelling, flexor tendon triggering, thenar atrophy or sensory loss .? The remainder of the joints have no swelling or tenderness. Left:? Mild tenderness without swelling at the 2nd 3rd PIP joints.? There is no tenderness of the flexor tendons. No flexor tendon triggering or swelling is appreciated.? Other joints have no soft tissue swelling, thenar atrophy,? or sensory loss. Wrists:? Mild pain with extremes of flexion or extension.? Slight tenderness but no swelling, increased warmth or erythema. Elbows:. Normal pain-free range of motion without tenderness, swelling, increased warmth or erythema. Shoulders:? Right:? Slight discomfort with extremes of normal abduction and rotation. No tenderness, swelling, adenopathy or weakness.? Left:? Full range of motion with slight discomfort at the extremes of motion.? There is mild anterior tenderness without adenopathy, weakness, swelling, increased warmth or erythema. Hips:.? Full range of motion without pain. Hip bursa: Mild trochanteric tenderness. Knees:.??Right: Normal pain-free range of motion with mild patellofemoral crepitus but no effusion, swelling, increased warmth or erythema.? There is mild medial tenderness.? Left:? Mild to moderate patellofemoral crepitus and no pain with extremes of flexion.? There is some minimal medial tenderness without redness or effusion. Ankles:? Normal pain-free range of motion without tenderness, swelling, increased warmth or erythema. Feet: Right:? Healed surgery of the right 1st MTP.? No tenderness or soft tissue swelling.? Left:? There are surgical scars over the 1st through 3 MTP regions.? She has had a fusion at the 1st MTP.? There is shortening of the 4th toe she says some surgical removal and problems with an implant.? These MTP joints are slightly tender but without soft tissue swelling, increased warmth or erythema. Tender points:?Mild tenderness to digital palpation at the? trapezius, second rib, lateral epicondyle, knees, greater trochanter area bilaterally. ? Results Reviewed Results Reviewed: Laboratory Tests 09/01/23 14:00 WBC 6.3 Hgb 12.7 ESR 5 Creatinine 0.94 AST 19 ALT 23 Alkaline Phosphatase 54 Assessment & Plan Assessment & Plan (1) Osteoarthritis of lumbar spine: Code(s): M47.816 - Spondylosis without myelopathy or radiculopathy, lumbar region (2) Fibromyalgia: Code(s): M79.7 - Fibromyalgia Plan She still has a number of areas of pain but no obvious synovitis on exam. The acute phase reactants remain normal. Again she could have some mild inflammatory disease that comes and goes related to her inflammatory bowel disease but there is no such synovitis noted today. I do not see a reason to restart immunosuppressive treatment presently. She does have a low titer positive CCP antibody so this does bear watching. A return at 6 months is recommended. She does have many tender points consistent with fibromyalgia which seems to be managed reasonably well with combination antidepressants and the gabapentin. She has a right rib contusion which I would expect would improve over the next 3-4 weeks. Coding Level of Care Code Est Pt Level 3 (49293) Diagnoses Osteoarthritis of lumbar spine M47.816 Fibromyalgia M79.7
== END 2023-09-05 17:30 | disposition home or self-care (01) ==
PROVIDERS: PCP Internal Medicine; Visit Provider Internal Medicine Rheumatology
DX: M47.816 Spondylosis without myelopathy or radiculopathy, lumbar region (principal); M79.7 Fibromyalgia
CPT/HCPCS: 99213

== ENCOUNTER → 2023-09-05 15:28 | Outpatient (BNVA) | payer OTHER, SELFPAY | PROVIDERS: PCP Internal Medicine; Visit Provider Internal Medicine Rheumatology | DX: M47.816 Spondylosis without myelopathy or radiculopathy, lumbar region (principal); M79.7 Fibromyalgia | CPT/HCPCS: 99212 ==

== ENCOUNTER 2023-10-13 15:37 | Outpatient (AMB) | payer MEDICAID, SELFPAY ==
[2023-10-13 15:38] VITALS: BMI 33.1
--- NOTE | 2023-10-13 15:38 | MHC.OFFVIS ---
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 Right LE worse than the left. 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 Pt states she has ulcers, has worn compression socks. Allergies amoxicillin [AMOXICILLIN] Allergy (Intermediate, Verified 10/13/23 15:42) FACIAL SWELLING, swollen face Sulfa (Sulfonamide Antibiotics) Allergy (Unknown, Verified 10/13/23 15:42) red patches all over legs HPI MANAGER QUALITY IMPROVEMENT/PCP referral for VV HPI Details Very pleasant 57-year-old female patient presents for painful varicose veins. Complaints include pain over varicosities, swelling of lower extremities, cramping, fatigue, and heaviness of the lower extremities. It has been affecting there daily activities including walking. It is noted more so in right leg. She is concerned about right pretibial surface ulceration which had an extended period of time that require to heal Patient denies any previous venous surgery or injections. Patient denies any history of DVT/ PE. Patient denies any history of phlebitis. Trial of compression includes - [id number] They now present for vascular evaluation regarding their varicose veins. 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 Brother No problems noted. Sister Mental health disorder Sister Mental health disorder Sister Mental health disorder Sister No problems noted. Sister No problems noted. Sister No problems noted. Sister No problems noted. 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 Review of Systems Const Reports as per HPI ENT Reports no additional complaints Card Denies chest pain, Denies chest pain at rest and Denies chest pain with activity Resp Denies chest congestion and Denies cough GI Reports no additional complaints Musc Details: pain over varicosities, aching of lower extremities, swelling, cramping, heaviness and tiredness, itching Denies abnormal gait Skin/Breast Reports pruritus and Denies wounds Neuro Reports no additional complaints and Denies abnormal gait Psych Denies no additional complaints Physical Exam Vital Signs: BMI result Body Mass Index 33.1 Const General: cooperative, healthy appearing and comfortable Orientation/consciousness: oriented to person, oriented to place and oriented to time Neck Carotids: no bruits Chest Chest palpation & inspection: normal inspection of the chest and normal palpation of entire chest wall Resp Effort & Inspection: normal respiratory effort and able to speak in complete sentences Cardio Rate: regular rate Heart sounds: S1 normal heart sound present and S2 normal heart sound present Peripheral pulses: Peripheral pulses 2+ throughout GI Inspection: Yes normal to inspection Skin Other: +2 edema, large rope-like varicosities greater than 4 mm CEAP Classification C5 - evidence of healed ulceration Ep - Etiology Primary As - superficial veins P - reflux General skin exam: dry skin Neuro General: oriented to person, oriented to place and oriented to time Extrem Right lower extremity: full ROM, normal capillary refill and edema Left lower extremity: full ROM, normal capillary refill and edema Psych Mental Status: mental status grossly normal Assessment & Plan Assessment & Plan (1) Varicose veins of right lower extremity with inflammation: Code(s): I83.11 - Varicose veins of right lower extremity with inflammation Plan: In short, the patient has evidence of venous insufficiency. I have discussed the pathophysiology with the patient. In addition I have provided informational material regarding venous disease to the patient. We have discussed conservative measures including compression, elevation, and exercise. I have also provided a handout regarding appropriate use of compression stockings and where to purchase good compression stockings as well. I have taken the liberty of ordering venous insufficiency testing with the patient. They will follow up with me after testing. The patient had an opportunity to ask questions regarding the treatment plan. All questions were answered. Imaging studies, laboratory studies and physical exam results were discussed and reviewed in detail. No major barriers to understanding were identified. The patient expressed understanding and agreement with the above treatment plan. The patient is aware they should contact our office by phone for worsening of the current condition or the appearance of new symptoms. Thank you for allowing me to participate in the vascular care of this patient. If you have any questions or concerns regarding the treatment for the above condition please do not hesitate to contact me. The office telephone contact is [phone]. This note is constructed using voice recognition software. While every effort has been made to ensure accuracy, underwater welder errors may have been included. Thank you for allowing me to participate in the care of your patient. Yours sincerely, Garry Miguel MD, FACS, R.P.V.I. Orders: Orders US venous duplex LE BI 1 Week I83.11 - Varicose veins of right lower extremity with inflammation Coding Level of Care Code New Pt Level 4 (99477) Diagnoses Varicose veins of right lower extremity with inflammation I83.11
== END 2023-10-13 15:49 | disposition home or self-care (01) ==
PROVIDERS: PCP Internal Medicine; Visit Provider Surgery Vascular Surgery
DX: I83.11 Varicose veins of right lower extremity with inflammation (principal)
CPT/HCPCS: 99203

== ENCOUNTER → 2023-10-13 15:37 | Outpatient (BNVA) | payer MEDICAID, SELFPAY | PROVIDERS: PCP Internal Medicine; Visit Provider Surgery Vascular Surgery | DX: I83.11 Varicose veins of right lower extremity with inflammation (principal) | CPT/HCPCS: 99202 ==

== ENCOUNTER 2023-12-19 15:47 | Outpatient (REF) | payer MEDICAID, SELFPAY ==
[2023-12-19 15:59] LABS: MANUAL DIFF FLAG NO
[2023-12-19 16:09] LABS: Basophils Absolute Auto 0.1 X10*3/uL (0.0-0.2); Basophils Percent Auto 0.9 % (0-2); Eosinophils Absolute Auto 0.4 X10*3/uL (0.0-0.4); Hematocrit 40.7 % (37.0-47.0); Hemoglobin 13.1 g/dl (12.0-16.0); Imm Gran Abs Auto 0.01 X10*3/uL (0.00-0.03); Imm Gran Pct Auto 0.1 % (0.0-0.4); Lymphocytes Absolute Auto 2.8 X10*3/uL (1.2-4.9); Lymphocytes Percent Auto 40.6 % (20-40); Mean Corpuscular HGB Conc 32.2 g/dl (31.0-35.0); Mean Corpuscular Hemoglobin 28.7 pg (27.0-33.0); Mean Corpuscular Volume 89.1 fL (80.0-98.0); Mean Platelet Volume 9.1 fL (9.4-12.3); Monocytes Absolute Auto 0.5 X10*3/uL (0.1-1.2); Monocytes Percent Auto 7.2 % (2-11); Neutrophils Absolute Auto 3.1 x10*3/uL (2.0-8.3); Neutrophils Percent Auto 45.2 % (45-73); Platelet Count 325 X10*3/uL (160-400); Red Blood Count 4.57 X10*6/uL (4.20-5.50); Red Cell Distribution Width 13.2 % (11.0-16.0); White Blood Count 6.8 X10*3/uL (4.8-10.8)
[2023-12-19 16:45] LABS: Alanine Aminotransferase 28 U/L (0-31); Albumin Level 4.4 g/dL (3.5-5.0); Alkaline Phosphatase 51 U/L (39-117); Anion Gap 11 (12-20); Aspartate Amino Transferase 22 U/L (5-31); Bilirubin Total 0.4 mg/dL (0.0-1.0); Blood Urea Nitrogen 14 mg/dL (9-16); Calcium 9.5 mg/dL (8.4-10.2); Carbon Dioxide 27 mmol/L (22-29); Chloride 110 mmol/L (96-108); Cholesterol 192 mg/dL (<200); Estimated Glomerular Filt Rate > 60; Glucose Random 83 mg/dL (60-115); HDL Cholesterol 55 mg/dL (>40); LDL Cholesterol Calculated 100 mg/dL (<100); Potassium 3.6 mmol/L (3.3-5.1); Sodium 144 mmol/L (135-145); Total Protein 7.2 g/dL (6.5-8.0); Triglycerides 185 mg/dL (<150)
[2023-12-19 17:00] LABS: Thyroid Stimulating Hormone 3.34 uIU/mL (0.32-4.0)
== END 2023-12-19 15:48 | disposition home or self-care (01) ==
LOC: HO.LAB 15:47
PROVIDERS: PCP Internal Medicine; Visit Provider Internal Medicine
DX: Z00.00 Encounter for general adult medical examination without abnormal findings (principal); E78.00 Pure hypercholesterolemia, unspecified; F32.5 Major depressive disorder, single episode, in full remission; I10 Essential (primary) hypertension; K51.90 Ulcerative colitis, unspecified, without complications; M06.9 Rheumatoid arthritis, unspecified; M48.061 Spinal stenosis, lumbar region without neurogenic claudication; M79.7 Fibromyalgia
CPT/HCPCS: 36415; 80053; 80061; 84443; 85025

== ENCOUNTER 2024-01-10 15:02 | Outpatient (AMB) | payer MEDICAID, SELFPAY ==
--- NOTE | 2024-01-10 15:23 | A.OFFVIS_ITS ---
Intake Intake Visit Reasons: OV- B/L shoulder pain, last 09/02/23 Intake Note: Sandra is a 57 year old left hand dominant female who presents today for a follow up of her bilateral shoulder pain, last injection 09/02/23. Patient reports her last injection gave her about 3 months of relief. She states that she would like to repeat. Allergies amoxicillin [AMOXICILLIN] Allergy (Intermediate, Verified 01/10/24 15:23) FACIAL SWELLING, swollen face Sulfa (Sulfonamide Antibiotics) Allergy (Unknown, Verified 01/10/24 15:23) red patches all over legs HPI OV- B/L shoulder pain, last 09/02/23 HPI Details 58-year-old female who presents in the [facility] today for a follow up of bilateral shoulder pain. I last saw the patient on 09/02/2023 when she received a cortisone injection in the bilateral shoulders. The patient reports the last injection gave her about 3 months of relief. She would like to repeat the injection while in the office today. 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 Brother No problems noted. Sister Mental health disorder Sister Mental health disorder Sister Mental health disorder Sister No problems noted. Sister No problems noted. Sister No problems noted. Sister No problems noted. 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 No ecchymosis, redness or edema. Patient is lacking about 30? of forward flexion and abduction. Pain with cross- body reach. Negative empty can. Negative drop-arm. NVI. Psych Mental Status: mental status grossly normal Office Procedures Joint Injection/Drain Joint Injection/Drain Primary Site: right shoulder Secondary Site: left shoulder Prep: site was prepped using aseptic technique, ethochloride spray was applied and injection warnings given Injected: 80 mg of, DepoMedrol, with 8 mL of (2% plain lido ) and in the subcromial space Approach Used: posterolateral Procedure: The patient tolerated the procedure well, but had some pain with the injection and there was some relief with the local anesthesia Coding 09997 - Large joint Procedure code (CPT) selection complete Assessment & Plan Assessment & Plan (1) Bilateral shoulder pain: Code(s): M25.511 - Pain in right shoulder; M25.512 - Pain in left shoulder Qualifiers: Chronicity: unspecified Qualified Code(s): M25.511 - Pain in right shoulder; M25.512 - Pain in left shoulder Plan Ms. Alvarado is a 58-year-old female who presents in the office today for a follow up of bilateral shoulder pain. I last saw the patient on 09/02/2023 when she received a cortisone injection in the bilateral shoulders. The patient reports the last injection gave her about 3 months of relief. She would like to repeat the injection while in the office today. The patient was offered a cortisone injection in the bilateral shoulders with 80 mg of DepoMedrol. The patient was explained the risk, benefits, and a lternatives to receiving this injection. After receiving consent for the injection, the patient had the procedure done while in office today. The patient tolerated the procedure well with no complications. Follow up will be PRN, or sooner if needed. Patient Instructions: Scribed by Dania Gold ophthalmic medical technologist, for Ania Carlton PA-C on 01/10/2024 at 2:57pm, EST. Coding Level of Care Code Est Pt Level 3 (78320) Diagnoses Bilateral shoulder pain, unspecified chronicity M25.511; M25.512 Chronicity: unspecified CPT Codes Coding - 40693 Large joint: 08903 - Large joint ([id number])
== END 2024-01-10 15:36 | disposition home or self-care (01) ==
PROVIDERS: PCP Internal Medicine; Visit Provider Physician Assistant
DX: M25.511 Pain in right shoulder (principal); M25.512 Pain in left shoulder
CPT/HCPCS: 20610; 99213

== ENCOUNTER → 2024-01-10 15:02 | Outpatient (BNVA) | payer MEDICAID, SELFPAY | PROVIDERS: PCP Internal Medicine; Visit Provider Physician Assistant | DX: M25.511 Pain in right shoulder (principal); M25.512 Pain in left shoulder | CPT/HCPCS: 20610; 99212; J1040 ==

== ENCOUNTER 2024-03-06 14:46 | Outpatient (AMB) | payer MEDICAID, SELFPAY ==
--- NOTE | 2024-03-06 14:52 | MHC.OFFVIS ---
Vital Signs 03/06/24 15:03 Height 5 ft 5 in Weight 203 lb 11.314 oz BMI 33.9 BP 122/84 Blood Pressure Location Rt brachial Position Sitting Pulse 72 Pulse Source Pulse Oximeter Pulse Oximetry (%) 96 Oxygen Delivery Method Room Air Intake Visit Reasons: fm, oa, pos ccp, with palliative senior np Intake Note: Patient last seen 09/05/[address] Chawla, presents today for follow up. 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 Flores returns for f/u of polyatrhalgias with positive CCP. Today she continues without signs of RA but have the following current experiences: --leg swelling and referred for US but unable to get appointment. --Takes Norco XL. --Continues with Gabapentin --Hx of UC on Mesalamine - Sees GI Q3ys. In remission 08/2023 Dr. Chawla: The patient presents today for evaluation of her polyarthralgias and positive CCP antibody. We had stopped her methotrexate in May because of LFT abnormalities. She had had tapered before that and there really was no change in her muscle or bone pains. About 3 weeks ago she was chasing down one of her cats and seem to acquire a contusion on the right rib area trying to reach behind her washing machine. She still gets lower back pain that is the most problematic area. She did see Pain Management. They are contemplating implantation of a stimulator device. She has not given the okay so far. She remains on acetaminophen 650 a few times a day, bupropion 300 mg daily, citalopram 40 daily, diclofenac gel topically if needed, gabapentin 400 t.i.d., and ropinirole at bedtime. She still is on mesalamine for her inflammatory bowel disease. She also remains on omeprazole, verapamil, pravastatin, p.r.n. Imitrex, and Topamax. 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 She does not think she is any worse or better for not working at present. There is some sedation in the evening when she takes her last gabapentin. She is not sure she has any sedation in the daytime when she takes the mid day dose. She had a skin abnormality on the legs that we thought might be early pyoderma but it never involved. She does have some tenderness to the skin and is planning evaluation with vascular surgery for venous insufficiency. [facility] Medical History (Updated 04/05/24 @ 23:09 by MACK Carlos) Pain in joint involving multiple sites Varicose veins of both lower extremities with pain Mixed conductive and sensorineural hearing loss History of migraine headaches Ulcerative colitis Long-term use of immunosuppressant medication Osteoarthritis of lumbar spine Fibromyalgia Tenosynovitis of fingers Dyslipidemia Essential hypertension 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 Brother No problems noted. Sister Mental health disorder Sister Mental health disorder Sister Mental health disorder Sister No problems noted. Sister No problems noted. Sister No problems noted. Sister No problems noted. 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 no calf tenderness, normal peripheral pulses. SKIN: There is some dusky discoloration and petechial lesions in the pretibial regions. These are chronic. On the right there is a pretibial scar and this today is not tender or red. She also has a pretibial scar on the left that is much smaller. JOINT EXAM:?? Cervical Spine:.? Mild pain with extremes of normal range of motion.? There is some mild posterior cervical muscle tenderness. Thoracic Spine:.? No scoliosis.? No tenderness on palpation. Lumbar Spine:.? Alignment normal.? Some lumbar pain with flexion at 60 degrees.? There is some paraspinal muscle tenderness. Chest Wall:.? There is tenderness around the right costal margin. No areas of redness or bruising. Hands:.? Right:? Slight tenderness at the 2nd MCP joint but no soft tissue swelling, flexor tendon triggering, thenar atrophy or sensory loss .? The remainder of the joints have no swelling or tenderness. Left:? Mild tenderness without swelling at the 2nd 3rd PIP joints.? There is no tenderness of the flexor tendons. No flexor tendon triggering or swelling is appreciated.? Other joints have no soft tissue swelling, thenar atrophy,? or sensory loss. Wrists:? Mild pain with extremes of flexion or extension.? Slight tenderness but no swelling, increased warmth or erythema. Elbows:. Normal pain-free range of motion without tenderness, swelling, increased warmth or erythema. Shoulders:? Right:? Slight discomfort with extremes of normal abduction and rotation. No tenderness, swelling, adenopathy or weakness.? Left:? Full range of motion with slight discomfort at the extremes of motion.? There is mild anterior tenderness without adenopathy, weakness, swelling, increased warmth or erythema. Hips:.? Full range of motion without pain. Hip bursa: Mild trochanteric tenderness. Knees:.??Right: Normal pain-free range of motion with mild patellofemoral crepitus but no effusion, swelling, increased warmth or erythema.? There is mild medial tenderness.? Left:? Mild to moderate patellofemoral crepitus and no pain with extremes of flexion.? There is some minimal medial tenderness without redness or effusion. Ankles:? Normal pain-free range of motion without tenderness, swelling, increased warmth or erythema. Feet: Right:? Healed surgery of the right 1st MTP.? No tenderness or soft tissue swelling.? Left:? There are surgical scars over the 1st through 3 MTP regions.? She has had a fusion at the 1st MTP.? There is shortening of the 4th toe she says some surgical removal and problems with an implant.? These MTP joints are slightly tender but without soft tissue swelling, increased warmth or erythema. Tender points:?Mild tenderness to digital palpation at the? trapezius, second rib, lateral epicondyle, knees, greater trochanter area bilaterally. ? Assessment & Plan Assessment & Plan (1) Osteoarthritis of lumbar spine: Code(s): M47.816 - Spondylosis without myelopathy or radiculopathy, lumbar region Category: Medical Qualifiers: Spinal osteoarthritis complication: with radiculopathy Qualified Code(s): M47.26 - Other spondylosis with radiculopathy, lumbar region (2) Fibromyalgia: Code(s): M79.7 - Fibromyalgia Category: Medical (3) Pain in joint involving multiple sites: Code(s): M25.50 - Pain in unspecified joint Category: Medical Plan #Pain Multiple Joints/OA: She still has a number of areas of pain but no obvious synovitis on exam. She is due for updated ESR/CRP. Again she could have some mild inflammatory disease that comes and goes related to her inflammatory bowel disease but there is no such synovitis noted today. Additionally, she does have a low titer positive CCP antibody so this does bear watching. However, I do not see a reason to restart immunosuppressive treatment presently. She did stop the MTX and has not any any worsening of symptoms. she did receive corticosteroid injection to bilateral shoulders in December and it remains therapeutic. She would like to continue without MTX at this time. Do labs to assess Immunhyperactivity and other possible causes. Patient agrees with this plan #Fibromyalgia:She does have many tender points consistent with fibromyalgia which seems to be managed reasonably well with combination antidepressants and the gabapentin. Orders: Orders Immunofixation Pnl, Serum 03/06/24 M05.9 - Rheumatoid arthritis with rheumatoid factor, unspecified Uric Acid 03/06/24 M05.9 - Rheumatoid arthritis with rheumatoid factor, unspecified HLA B27 03/06/24 M05.9 - Rheumatoid arthritis with rheumatoid factor, unspecified Erythrocyte Sedimentation Rate 03/06/24 M05.9 - Rheumatoid arthritis with rheumatoid factor, unspecified C Reactive Protein 03/06/24 M05.9 - Rheumatoid arthritis with rheumatoid factor, unspecified Immunoglobulins,IgG IgA IgM 03/06/24 M05.9 - Rheumatoid arthritis with rheumatoid factor, unspecified Protein Electrophoresis, Serum 03/06/24 M05.9 - Rheumatoid arthritis with rheumatoid factor, unspecified Coding Level of Care Code Est Pt Level 3 (73886) Complex EM visit Add On G2211 Diagnoses Osteoarthritis of spine with radiculopathy, lumbar region M47.26 Spinal osteoarthritis complication: with radiculopathy Fibromyalgia M79.7 Pain in joint involving multiple sites M25.50
[2024-03-06 15:03] VITALS: BP 122/84; PULSE 72; O2SAT 96; BMI 33.9
== END 2024-03-06 15:25 | disposition home or self-care (01) ==
PROVIDERS: PCP Internal Medicine; Visit Provider Nurse Practitioner Family
DX: M47.26 Other spondylosis with radiculopathy, lumbar region (principal); M79.7 Fibromyalgia; M25.50 Pain in unspecified joint
CPT/HCPCS: 99213; G2211

== ENCOUNTER → 2024-03-06 14:46 | Outpatient (BNVA) | payer MEDICAID, SELFPAY | PROVIDERS: PCP Internal Medicine; Visit Provider Nurse Practitioner Family | DX: M05.9 Rheumatoid arthritis with rheumatoid factor, unspecified (principal); M79.7 Fibromyalgia; M47.816 Spondylosis without myelopathy or radiculopathy, lumbar region; Z79.60 Long term (current) use of unspecified immunomodulators and immunosuppressants | CPT/HCPCS: 99212 ==

== ENCOUNTER 2024-04-19 15:12 | Outpatient (AMB) | payer MEDICAID, SELFPAY ==
--- NOTE | 2024-04-19 15:35 | MHC.OFFVIS ---
Intake Visit Reasons: OV- B/L shoulder pain, last inj-01/10/24 Allergies amoxicillin [AMOXICILLIN] Allergy (Intermediate, Verified 03/06/24 15:04) FACIAL SWELLING, swollen face Sulfa (Sulfonamide Antibiotics) Allergy (Unknown, Verified 03/06/24 15:04) red patches all over legs HPI HPI OV- B/L shoulder pain, last inj-01/10/24: Details: 58-year-old female who presents in the office today for a follow up of bilateral shoulder pain. I last saw the patient in the office on 01/10/2024 when she was given cortisone injections in the bilateral shoulders. [facility] Medical History (Updated 04/05/24 @ 23:09 by LANDON Carlos) Pain in joint involving multiple sites Varicose veins of both lower extremities with pain Mixed conductive and sensorineural hearing loss History of migraine headaches Ulcerative colitis Long-term use of immunosuppressant medication Osteoarthritis of lumbar spine Fibromyalgia Tenosynovitis of fingers Dyslipidemia Essential hypertension 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 Brother No problems noted. Sister Mental health disorder Sister Mental health disorder Sister Mental health disorder Sister No problems noted. Sister No problems noted. Sister No problems noted. Sister No problems noted. 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 No ecchymosis, redness or edema. Patient is lacking about 30? of forward flexion and abduction. Pain with cross-body reach. Negative empty can. Negative drop-arm. NVI. Psych Mental Status: mental status grossly normal Office Procedures Joint Injection/Drain Joint Injection/Drain Primary Site: right shoulder Secondary Site: left shoulder Prep: site was prepped using aseptic technique, ethochloride spray was applied and injection warnings given Injected: 80 mg of, DepoMedrol, with 8 mL of (2% plain lido ) and in the subcromial space Approach Used: posterolateral Procedure: The patient tolerated the procedure well, but had some pain with the injection and there was some relief with the local anesthesia Coding 52045 - Large joint Procedure code (CPT) selection complete Assessment & Plan Assessment & Plan (1) Bilateral shoulder pain: Code(s): M25.511 - Pain in right shoulder; M25.512 - Pain in left shoulder Category: Medical Qualifiers: Chronicity: unspecified Qualified Code(s): M25.511 - Pain in right shoulder; M25.512 - Pain in left shoulder Plan Ms. Alvarado is a 58-year-old female who presents in the office today for a follow up of bilateral shoulder pain. I last saw the patient in the office on 01/10/2024 when she was given cortisone injections in the bilateral shoulders. The patient was offered a cortisone injection in the bilateral shoulders with 80 mg of DepoMedrol. The patient was explained the risk, benefits, and alternatives to receiving this injection. After receiving consent for the injection, the patient had the procedure done while in the office today. The patient tolerated the procedure well with no complications. Follow-up will be PRN, or sooner if needed. Patient Instructions: Scribed by Dania Gold biomedical field service engineer, for Ania Carlton PA-C on 04/19/2024 at 3:14 pm, EST. Coding Level of Care Code Est Pt Level 3 (28095) Diagnoses Bilateral shoulder pain, unspecified chronicity M25.511; M25.512 Chronicity: unspecified CPT Codes Coding - 56101 Large joint: 29694 - Large joint ([id number])
== END 2024-04-19 15:46 | disposition home or self-care (01) ==
PROVIDERS: PCP Internal Medicine; Visit Provider Physician Assistant
DX: M25.511 Pain in right shoulder (principal); M25.512 Pain in left shoulder
CPT/HCPCS: 20610

== ENCOUNTER → 2024-04-19 15:12 | Outpatient (BNVA) | payer MEDICAID, SELFPAY | PROVIDERS: PCP Internal Medicine; Visit Provider Physician Assistant | DX: M25.511 Pain in right shoulder (principal); M25.512 Pain in left shoulder | CPT/HCPCS: 20610; J1010 ==

== ENCOUNTER 2024-05-11 08:56 | Outpatient (REF) | payer MEDICAID, SELFPAY ==
--- NOTE | ~2024-05-11 | XR_ITS ---
EXAMINATION: XR BILATERAL KNEES CLINICAL INFORMATION: Pain in unspecified knee. COMPARISON: 05/06/2017. TECHNIQUE: AP standing, lateral and sunrise views of each knee. FINDINGS: LEFT KNEE: Trace joint effusion. Mild narrowing of the medial compartment. Tiny medial marginal and posterior patellar osteophytes. RIGHT KNEE: No significant joint effusion. Minimal narrowing of the medial compartment. Tiny medial margin and posterior patellar osteophytes. XR/XR knee LT 3V IMPRESSION: Mild degenerative changes in the bilateral knees.
--- NOTE | ~2024-05-11 | XR_ITS ---
EXAMINATION: XR BILATERAL KNEES CLINICAL INFORMATION: Pain in unspecified knee. COMPARISON: 05/06/2017. TECHNIQUE: AP standing, lateral and sunrise views of each knee. FINDINGS: LEFT KNEE: Trace joint effusion. Mild narrowing of the medial compartment. Tiny medial marginal and posterior patellar osteophytes. RIGHT KNEE: No significant joint effusion. Minimal narrowing of the medial compartment. Tiny medial margin and posterior patellar osteophytes. XR/XR knee RT 2V IMPRESSION: Mild degenerative changes in the bilateral knees.
== END 2024-05-11 08:57 | disposition home or self-care (01) ==
LOC: HO.HOSX 08:56
PROVIDERS: Visit Provider Physician Assistant
DX: M17.0 Bilateral primary osteoarthritis of knee (principal)
CPT/HCPCS: 20610; 73560; 73562; 99212; J1010

== ENCOUNTER 2024-05-11 12:31 | Outpatient (AMB) | payer MEDICAID, SELFPAY ==
[2024-05-11 12:45] VITALS: BMI 33.8
--- NOTE | 2024-05-11 12:45 | MHC.OFFVIS ---
Vital Signs 05/11/24 12:45 Height 5 ft 5 in Weight 203 lb BMI 33.8 Intake Visit Reasons: Newprob-b/l knee pain-left knee is worse Intake Note: Sandra is a 58 year old female who presents today for a evaluation of her bilateral knee pain. Hx of a kinney cyst on her left knee that was drained many years ago. Patient reports ongoing pain for more than a year. She states that her left knee is worse than the right knee. Hx of a cortisone injection about a year ago with no relief from pain management. Pain is on the lateral aspect of the left knee. Patient tried and failed 3+ months Tylenol. Patient has tried and failed 3 + months of compound cream. Patient tried and failed 3 + months of at home exercises. Allergies amoxicillin [AMOXICILLIN] Allergy (Intermediate, Verified 05/11/24 12:59) FACIAL SWELLING, swollen face Sulfa (Sulfonamide Antibiotics) Allergy (Unknown, Verified 05/11/24 12:59) red patches all over legs HPI HPI Newprob-b/l knee pain-left knee is worse: Details: 58-year-old left hand dominant female who presents in the office today for an evaluation of bilateral knee pain. ? ? Patient has a history of cortisone injections in the bilateral shoulders. ? ? While in the office today, the patient reports her pain has been present for more than a year, since at least?2022. She claims her pain is along the lateral aspect of the bilateral knees. She confirms her left knee is worse than her right knee. ? ? Patient confirms a history of kinney?s cyst in the left knee that was drainage many years ago, by Pain Management, and was accompanied by a cortisone injection. ? ? Patient states she has received a total of two cortisone injections in the left knee and one in the right knee, with no relief. The last cortisone injections were in the bilateral knees about a year ago, in 2022, through Pain Management. She states these injections were a ?partial? injection placed on the ?inside: of the bilateral knees due to also receiving cortisone injections in the bilateral shoulder.? ? Patient confirms the use of Tylenol and compound cream, and a home exercise program.? ? Patient is currently being followed by Rheumatology for pain in multiple joints.? ? Patient has a significant medical history of fibromyalgia. ? PFSH Medical History (Updated 05/11/24 @ 13:32 by Dania Gold) Pain in joint involving multiple sites Varicose veins of both lower extremities with pain Mixed conductive and sensorineural hearing loss History of migraine headaches Ulcerative colitis Long-term use of immunosuppressant medication Osteoarthritis of lumbar spine Fibromyalgia Tenosynovitis of fingers Dyslipidemia Essential hypertension 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 Brother No problems noted. Sister Mental health disorder Sister Mental health disorder Sister Mental health disorder Sister No problems noted. Sister No problems noted. Sister No problems noted. Sister No problems noted. 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 No ecchymosis, erythema, or joint effusion. No tenderness to palpation along the medial or lateral joint lines. Full knee extension and flexion. Crepitus felt with ROM. NVI. Office Procedures Joint Injection/Drain Joint Injection/Drain Primary Site: right knee Secondary Site: left knee Prep: site was prepped using aseptic technique, ethochloride spray was applied and injection warnings given Injected: 80 mg of, DepoMedrol, with 8 mL of (2% plain lido ) and in the joint Approach Used: anterolateral Procedure: The patient tolerated the procedure well, but had some pain with the injection and there was some relief with the local anesthesia Coding 22204 - Large joint Procedure code (CPT) selection complete Assessment & Plan Assessment & Plan (1) Osteoarthritis of right knee: Code(s): M17.11 - Unilateral primary osteoarthritis, right knee Category: Medical (2) Osteoarthritis of left knee: Code(s): M17.12 - Unilateral primary osteoarthritis, left knee Category: Medical Plan Ms. Alvarado is a 58-year-old left hand dominant female who presents in the office today for an evaluation of bilateral knee pain. ? ? Patient has a history of cortisone injections in the bilateral shoulders. ? ? While in the office today, the patient reports her pain has been present for more than a year, since at least?2022. She claims her pain is along the lateral aspect of the bilateral knees. She confirms her left knee is worse than her right knee. ? ? Patient confirms a history of kinney?s cyst in the left knee that was drainage many years ago, by Pain Management, and was accompanied by a cortisone injection. ? Patient states she has received a total of two cortisone injections in the left knee and one in the right knee, with no relief. The last cortisone injections were in the bilateral knees about a year ago, in 2022, through Pain Management. She states these injections were a ?partial? injection placed on the ?inside: of the bilateral knees due to also receiving cortisone injections in the bilateral shoulder.? ? Patient confirms the use of Tylenol and compound cream, and a home exercise program.? ? Patient is currently being followed by Rheumatology for pain in multiple joints.? ? Patient has a significant medical history of fibromyalgia.? ? ? The patient was offered a cortisone injection in the bilateral knees with 80 mg of DepoMedrol. The patient was explained the risks, benefits, and alternatives to receiving this injection. After receiving consent for the injection, the patient had the procedure done while in the office today. The patient tolerated the procedure well with no complications.? ? We discussed the role of gel injections should the cortisone not give the patient relief. At this time the patient is not a candidate for surgical intervention of a total knee arthroplasty based of x-rays and exam obtained today. I recommend for the patient to give the injections a month before discussing moving forward with gel injections. She was given my business card in the office and will call in one months time if she does not have relief. Follow-up will be PRN, or sooner if needed. ? ? X-rays of the 12:46 pm, which were obtained while in the office today and were reviewed by me, Ania Carlton PA-C, revealed osteoarthritis bilaterally.? Orders: Orders XR knee LT 3V Today M25.569 - Pain in unspecified knee XR knee RT 2V Today M25.569 - Pain in unspecified knee Patient Instructions: Scribed by Dania Gold, remote medical coder, for Ania Carlton PA-C on 05/11/2024 at 1:29 pm, EST.? Coding Level of Care Code Est Pt Level 4 (17226) Diagnoses Osteoarthritis of right knee M17.11 Osteoarthritis of left knee M17.12 CPT Codes Coding - 32069 Large joint: 36331 - Large joint ([id number])
== END 2024-05-11 13:22 | disposition home or self-care (01) ==
PROVIDERS: PCP Internal Medicine; Visit Provider Physician Assistant
DX: M17.0 Bilateral primary osteoarthritis of knee (principal)
CPT/HCPCS: 20610; 99214

== ENCOUNTER 2024-05-11 13:29 | Outpatient (REF) | payer MEDICAID, SELFPAY ==
[2024-05-11 15:07] LABS: Alanine Aminotransferase 18 U/L (0-31); Albumin Level 4.2 g/dL (3.5-5.0); Alkaline Phosphatase 48 U/L (39-117); Anion Gap 13 (12-20); Aspartate Amino Transferase 14 U/L (5-31); Bilirubin Total 0.4 mg/dL (0.0-1.0); Blood Urea Nitrogen 21 mg/dL (9-16); Calcium 10.1 mg/dL (8.4-10.2); Carbon Dioxide 24 mmol/L (22-29); Chloride 109 mmol/L (96-108); Estimated Glomerular Filt Rate 58; Glucose Random 90 mg/dL (60-115); Potassium 3.8 mmol/L (3.3-5.1); Sodium 142 mmol/L (135-145); Total Protein 7.1 g/dL (6.5-8.0)
== END 2024-05-11 13:30 | disposition home or self-care (01) ==
LOC: HO.LAB 13:29
PROVIDERS: PCP Internal Medicine; Visit Provider Internal Medicine
DX: Z13.89 Encounter for screening for other disorder (principal)
CPT/HCPCS: 36415; 80053

== ENCOUNTER 2024-09-21 15:27 | Outpatient (AMB) | payer OTHER, SELFPAY ==
[2024-09-21 15:34] VITALS: BP 120/72; PULSE 85; O2SAT 96; BMI 35.6
--- NOTE | 2024-09-21 15:34 | A.OFFVIS_ITS ---
Vital Signs 09/21/24 15:34 Height 5 ft 5 in Weight 213 lb 13.574 oz BMI 35.6 BP 120/72 Blood Pressure Location Lt brachial Position Sitting Pulse 85 Pulse Source Pulse Oximeter Pulse Oximetry (%) 96 Oxygen Delivery Method Room Air Intake Visit Reasons: FM/Hx UC with low back pain/CM Intake Note: Patient presents today for follow up on fibromyalgia, osteoarthritis, low back pain. She was last seen in the office by Marifer on 03/06/24. Patient states she is hurting everywhere, and would like a refill of Gabapentin. Allergies amoxicillin [AMOXICILLIN] Allergy (Intermediate, Verified 09/21/24 15:38) FACIAL SWELLING, swollen face Sulfa (Sulfonamide Antibiotics) Allergy (Unknown, Verified 09/21/24 15:38) red patches all over legs Medication List - Last Reconciled 09/21/24 by Karine Mitchell MD acetaminophen ER 650 mg PO BID aspirin 81 mg PO DAILY bupropion HCl XL 300 mg PO DAILY cholecalciferol (vitamin D3) 25 mcg PO DAILY citalopram 40 mg PO BEDTIME cyanocobalamin (vitamin B-12) 1,000 mcg sublingual DAILY diclofenac sodium 1% 2 grams topical QID PRN fexofenadine (Miladis Allergy) 180 mg PO DAILY furosemide 20 mg PO QAM gabapentin 400 mg PO TID hydroxyzine pamoate 25 mg PO BID losartan 25 mg PO DAILY mesalamine 4.8 grams PO DAILY omeprazole 20 mg PO BID pravastatin 80 mg PO BEDTIME sumatriptan succinate 50 mg PO DAILY PRN topiramate 25 mg PO DAILY verapamil ER 120 mg PO DAILY HPI Comments Details: Patient is a 58-year-old female with hypertension, hyperlipidemia, ulcerative colitis, CCP positive with ? inflammatory arthritis such as RA, osteoarthritis of the lumbar spine, fibromyalgia and history of pyoderma gangrenosum who presents today for follow-up. Interval History: Last seen 03/06/2024 with Marifer Shaw. At that time no changes made to medication and her pain was thought to be due to fibromyalgia Today: Patient complains hand pain, low back pain and shoulder pain. Rheumatologic History: Ulcerative colitis on mesalamine Seropositive RA? CCP, DASHAWN pos. anti DNA, anti RENAY negative; on methotrexate since 2020; methotrexate stopped April 2023 due to LFT elevations. Aug 2023: No synovitis. Immunosuppressives not restarted Current Rheumatology Medication(s): Gabapentin 400mg po TID [facility] Medical History (Updated 05/11/24 @ 13:32 by Dania Gold) Pain in joint involving multiple sites Varicose veins of both lower extremities with pain Mixed conductive and sensorineural hearing loss History of migraine headaches Ulcerative colitis Long-term use of immunosuppressant medication Osteoarthritis of lumbar spine Fibromyalgia Tenosynovitis of fingers Dyslipidemia Essential hypertension 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 Brother No problems noted. Sister Mental health disorder Sister Mental health disorder Sister Mental health disorder Sister No problems noted. Sister No problems noted. Sister No problems noted. Sister No problems noted. 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 Review of Systems Const Details: Review of Systems Constitutional: Denies fever, chills, weight loss ENT: Denies vision changes, eye pain or eye redness, dental caries, dry mouth GI: Denies nausea, vomiting, diarrhea, abdominal pain, change in BM Pulm: Denies SOB, HENDERSON, hemoptysis, wheezing Cards: Denies chest pain, palpitations Skin: Denies Raynaud's, rash, nail changes, photosensitivity, PHARMACY ASSISTANT: Denies headaches, weakness, paresthesias, recurrent falls MSK: as per HPI All other systems reviewed and are unremarkable except noted above Physical Exam Vital Signs: BMI result Body Mass Index 35.6 Physical Examination CONSTITUITIONAL Patient alert and cooperative. Well appearing and in no apparent painful distress HEENT Conjunctiva and sclera clear. ?Pupils equal round and reactive to light. ?No lymphadenopathy. ?Normal dentition. No oral or nasal ulcers noted. No evidence of discoid rash to the kasia of ears CHEST/RESPIRATORY SYSTEM Normal respiratory effort and able to speak in complete sentences. ?Clear to auscultation bilaterally. ?No crackles, rales, rhonchi, wheezes heard. CARDIAC SYSTEM Regular rate and rhythm. ?S1 and S2 heard no murmurs. ?Radial pulses intact bilaterally MSK Hands: ?Good human resources generalist strength bilaterally - 5/5. ?Tenderness to palpation of the MCPs throughout with mild fullness of the right 2nd MCP. Wrists: ?Full range of motion at the wrists without pain. ?No tenderness to palpation or synovitis noted to the wrists. Elbows: Full range of motion without pain. No tenderness, weakness, swelling, increased warmth or erythema. Shoulders: Full range of motion without pain. No tenderness, weakness, swelling, increased warmth or erythema. Hips: Full range of motion without pain. Hip bursa: No tenderness to palpation Knees: ?Full range of motion. ?No tenderness, swelling, increased warmth or erythema.?No effusion or crepitations Ankles: Full range of motion. ?No tenderness, swelling, increased warmth or erythema.? Feet: ?Negative squeeze test. ?No tenderness to palpation or swelling of the MTPs. Bilateral lower extremity edema Tender points:??Tender to palpation of the neck, shoulders, chest, elbows, hips, buttocks or knees. SKIN Skin intact without rashes. Results Reviewed Results Reviewed: Laboratory Tests 12/07/18 01/31/20 04/24/20 10:30 15:11 13:38 WBC RBC Hgb Hct Plt Count Sodium Potassium Chloride Carbon Dioxide BUN Creatinine C-Reactive Protein Cycl Citrul Peptide IgG 37 H DASHAWN Screen Positive H DASHAWN Titer 1:320 H Sm (Daniel) Antibody <1.0 SmRNP Antibodies <1.0 Scl-70 Scleroderma Ab <1.0 Double Strand DNA Ab <1 09/01/23 02/23/24 05/11/24 14:00 13:52 13:41 WBC 6.2 RBC 4.53 Hgb 13.2 Hct 40.3 Plt Count 321 Sodium 142 Potassium 3.8 Chloride 109 H Carbon Dioxide 24 BUN 21 H Creatinine 0.99 C-Reactive Protein 0.26 Cycl Citrul Peptide IgG DASHAWN Screen DASHAWN Titer Sm (Daniel) Antibody SmRNP Antibodies Scl-70 Scleroderma Ab Double Strand DNA Ab Assessment & Plan Assessment & Plan (1) Seropositive rheumatoid arthritis: Comment: CCP, DASHAWN pos. anti DNA, anti RENAY negative; on methotrexate since 2020; methotrexate stopped April 2023 due to LFT elevations. Aug 2023: No synovitis Code(s): M05.9 - Rheumatoid arthritis with rheumatoid factor, unspecified Category: Medical Plan: #RA Patient positive CCP and joint pain involving the hands. Question if the tenderness to palpation today of the MCPs is actual synovitis versus fibromyalgia. We will try Humira and see if there is any improvement in her hand pain (2) Fibromyalgia: Code(s): M79.7 - Fibromyalgia Category: Medical Plan: #Fibromyalgia Continue gabapentin 400 mg t.i.d. Plan I spent 30 minutes reviewing the record and labs, seeing the patient, discussing the treatment plan and documenting in the medical record ? Orders: Orders CA echo transthoracic complete Today M05.9 - Rheumatoid arthritis with rheumatoid factor, unspecified Complete Blood Count Auto Diff Today M05.9 - Rheumatoid arthritis with rheumatoid factor, unspecified Comprehensive Met. Panel Today M05.9 - Rheumatoid arthritis with rheumatoid factor, unspecified Hepatitis A,B,C Profile Today M05.9 - Rheumatoid arthritis with rheumatoid factor, unspecified HIV Ab/Ag Today M05.9 - Rheumatoid arthritis with rheumatoid factor, unspecified Hepatitis C Viral Load Today M05.9 - Rheumatoid arthritis with rheumatoid factor, unspecified T Spot TB Today M05.9 - Rheumatoid arthritis with rheumatoid factor, unspecified US venous duplex LE BI 1 Week I83.11 - Varicose veins of right lower extremity with inflammation, M05.9 - Rheumatoid arthritis with rheumatoid factor, unspecified US venous duplex LE BI Today I83.11 - Varicose veins of right lower extremity with inflammation, I83.813 - Varicose veins of bilateral lower extremities with pain Erythrocyte Sedimentation Rate Today M05.9 - Rheumatoid arthritis with rheumatoid factor, unspecified C Reactive Protein Today M05.9 - Rheumatoid arthritis with rheumatoid factor, unspecified Hepatitis B Viral DNA Qn Today M05.9 - Rheumatoid arthritis with rheumatoid factor, unspecified Medications: New adalimumab (Humira Pen) 40 mg (0.8 mL) subcut Q2W 2 ea 4RF M05.9 - Rheumatoid arthritis with rheumatoid factor, unspecified Coding Level of Care Code Est Pt Level 4 (99208) Complex EM visit Add On G2211 Diagnoses Seropositive rheumatoid arthritis M05.9 Fibromyalgia M79.7
== END 2024-09-21 16:06 | disposition home or self-care (01) ==
PROVIDERS: PCP Internal Medicine; Visit Provider Student in an Organized Health Care Education/Training Program
DX: M05.79 Rheumatoid arthritis with rheumatoid factor of multiple sites without organ or systems involvement (principal); M79.7 Fibromyalgia
CPT/HCPCS: 99214; G2211

== ENCOUNTER → 2024-09-21 15:27 | Outpatient (BNVA) | payer OTHER, SELFPAY | PROVIDERS: PCP Internal Medicine; Visit Provider Student in an Organized Health Care Education/Training Program | DX: M05.9 Rheumatoid arthritis with rheumatoid factor, unspecified (principal); M79.7 Fibromyalgia | CPT/HCPCS: 99212 ==

== ENCOUNTER 2024-09-25 11:35 | Outpatient (REF) | payer OTHER, SELFPAY ==
[2024-09-25 12:04] LABS: MANUAL DIFF FLAG NO
[2024-09-25 12:55] LABS: Basophils Absolute Auto 0.1 X10*3/uL (0.0-0.2); Eosinophils Absolute Auto 0.3 X10*3/uL (0.0-0.4); Eosinophils Percent Auto 5.2 % (0-4); Hematocrit 40.1 % (37.0-47.0); Hemoglobin 12.9 g/dl (12.0-16.0); Imm Gran Abs Auto 0.01 X10*3/uL (0.00-0.03); Imm Gran Pct Auto 0.2 % (0.0-0.4); Lymphocytes Absolute Auto 2.2 X10*3/uL (1.2-4.9); Lymphocytes Percent Auto 37.5 % (20-40); Mean Corpuscular HGB Conc 32.2 g/dl (31.0-35.0); Mean Corpuscular Hemoglobin 28.7 pg (27.0-33.0); Mean Corpuscular Volume 89.1 fL (80.0-98.0); Mean Platelet Volume 10.6 fL (9.4-12.3); Monocytes Absolute Auto 0.5 X10*3/uL (0.1-1.2); Monocytes Percent Auto 7.8 % (2-11); Neutrophils Absolute Auto 2.8 x10*3/uL (2.0-8.3); Neutrophils Percent Auto 48.3 % (45-73); Platelet Count 268 X10*3/uL (160-400); Red Cell Distribution Width 12.3 % (11.0-16.0); White Blood Count 5.7 X10*3/uL (4.8-10.8)
[2024-09-25 13:23] LABS: Alanine Aminotransferase 33 U/L (0-31); Albumin Level 4.3 g/dL (3.5-5.0); Alkaline Phosphatase 48 U/L (39-117); Anion Gap 12 (12-20); Aspartate Amino Transferase 30 U/L (5-31); Bilirubin Total 0.3 mg/dL (0.0-1.0); Blood Urea Nitrogen 17 mg/dL (9-16); C Reactive Protein 0.22 mg/dL (< or = 0.50); Calcium 9.9 mg/dL (8.4-10.2); Carbon Dioxide 24 mmol/L (22-29); Chloride 110 mmol/L (96-108); Estimated Glomerular Filt Rate > 60; Glucose Random 84 mg/dL (60-115); Potassium 4.2 mmol/L (3.3-5.1); Sodium 142 mmol/L (135-145); Total Protein 7.2 g/dL (6.5-8.0)
[2024-09-25 13:42] LABS: Erythrocyte Sedimentation Rate 7 MM/HR (0-20)
[2024-09-26 08:12] LABS: HBS Num1 0.96 mIU/mL (0-7.99); HBc Num1 0.16 S/CO (0.00-0.79); HBsAGNum1 0.41 S/CO (0.00-0.99); HIV AB/AG Nonreactive (Nonreactive); HIV Num 1 0.06 S/CO (0.00-0.99); Hepatitis A Antibody IgM 0.11 Index (0-0.79); Hepatitis B Core Antibody Nonreactive (Nonreactive); Hepatitis B Surface Antigen Negative (Negative); ~HepC Num1 0.12 S/CO (0.00-0.79); ~Hepatitis A Antibody IgM Nonreactive (Nonreactive); ~Hepatitis B Surface Antibody NONREACTIVE (Nonreactive); ~Hepatitis C Antibody Nonreactive (Nonreactive)
[2024-09-26 16:13] LABS: Hepatitis B Viral DNA Qn - cp NOT DETECTED Log IU/mL (NOT DETECTED); Hepatitis B Viral DNA Qn-IU/mL NOT DETECTED (NOT DETECTED)
[2024-09-26 17:39] LABS: HCV Log PCR <1.18 NOT DETECTED Log IU/mL (NOT DETECTED); HepC Viral Load <15 NOT DETECTED IU/mL (NOT DETECTED)
[2024-09-28 18:37] LABS: TS Negative Control Passed; TS Panel A 0; TS Panel B 0; TS Positive Control Passed; TSpotTB Negative (Negative)
== END 2024-09-25 11:36 | disposition home or self-care (01) ==
LOC: HO.LAB 11:35
PROVIDERS: PCP Internal Medicine; Visit Provider Student in an Organized Health Care Education/Training Program
DX: M05.9 Rheumatoid arthritis with rheumatoid factor, unspecified (principal)
CPT/HCPCS: 36415; 80053; 85025; 85652; 86140; 86481; 86704; 86706; 86709; 86803; 87340; 87389; 87517; 87522

== ENCOUNTER 2024-10-05 13:13 | Outpatient (REF) | payer OTHER, SELFPAY | END 2024-10-05 13:14 | disposition home or self-care (01) | LOC: HO.US 13:13 | PROVIDERS: PCP Internal Medicine; Visit Provider Student in an Organized Health Care Education/Training Program | DX: I83.813 Varicose veins of bilateral lower extremities with pain (principal); M05.9 Rheumatoid arthritis with rheumatoid factor, unspecified; I83.11 Varicose veins of right lower extremity with inflammation | CPT/HCPCS: 93970 ==

== ENCOUNTER → 2024-10-19 09:13 | Outpatient (REF) | payer OTHER, SELFPAY ==
--- NOTE | 2024-10-19 09:17 | CA_ITS ---
Transthoracic Echocardiogram Patient (Last, First, Middle): Sandra Alvarado, Gender: Female Date of : 1965 Age: 58 Procedure Date: 10/19/2024 Procedure Type: Transthoracic Echocardiogram Location: OP Height: 162. cm Weight: 96.16 kg BSA: 2.00 m2 Heart Rate: 70 bpm BP: 128 / 80 mmHg Java Developer Architect: KG Referring MD: Karine Mitchell MD Symptoms: M05.9 - Rheumatoid arthritis with rheumatoid factor, unspecified Study Quality: Fair w/Contrast ECG Rhythm: Sinus Conclusions: - Normal left ventricular size and systolic function. There is mildly increased left ventricular wall thickness. The visually estimated ejection fraction is between 55-60%. Diastolic function is normal for age. - Normal right ventricular cavity size and systolic function. - There is mild dilatation of the ascending aorta measuring 3.50 cm. Findings Procedure Information Contrast agent, definity, is being given per protocol without apparent complications. Left Ventricle Normal left ventricular size and systolic function. There is mildly increased left ventricular wall thickness. The visually estimated ejection fraction is between 55-60%. Diastolic function is normal for age. Right Ventricle Normal right ventricular cavity size and systolic function. Atria The left atrium is normal in size. The right atrium is normal in size. Aortic Valve Normal aortic valve structure and function. There is no aortic valve stenosis. There is no aortic valve regurgitation. Mitral Valve The mitral valve appears normal. There is no mitral valve regurgitation. There is no mitral valve stenosis. Pulmonic Valve The pulmonic valve is normal. There is no pulmonic valve regurgitation. Tricuspid Valve Normal tricuspid valve structure. There is no tricuspid valve regurgitation. Normal right atrial pressure. There is no evidence of pulmonary hypertension. Great Vessels There is mild dilatation of the ascending aorta measuring 3.50 cm. The visualized portions of the pulmonary artery and branches are normal. Venous The inferior vena cava is normal in size and collapses greater than 50% with inspiration. Pericardium/Pleural There is no evidence of pericardial effusion. Measurements 2D Linear Measurements IVSd: 0.98 0.6-0.9/0.6-1.0 cm LVIDd: 5.08 3.9-5.3/4.2-5.9 cm LVIDd Index: 2.54 2.4-3.2/2.2-3.1 cm/m2 LVIDs: 2.48 2.0-3.6 cm LVPWd: 0.95 0.7-1.1 cm LA Diam: 4.30 2.7-3.8/3.0-4.0 cm LAIDs Index: 2.15 1.5-2.3 cm/m2 LV Mass: 221.91 67-162/88-224 g LV Mass Index: 110.96 43-95/49-115 g/m2 LVOT Diam: 1.90 3.0+(-)1.3 cm 2D Systolic Function EF 4C: 61.20 >55% EF 2C: 63.50 >55% EF BiP: 62.70 >55% Mitral Valve MV Pk E: 0.95 MV PK A: 0.56 MV Decel Time: 185.00 E/A: 1.70 E'Lateral: 11.40 E'Medial: 8.49 E/E' Med: 11.20 E/E' Lat: 8.30 PHT: 54.00 MVA PHT: 4.07 Decel Union: 5.12 Aortic Valve AoV Pk Roque: 1.50 AoV Mn Roque: 1.05 AoV VTI: 0.33 AoV Pk Grad: 9.00 Aov Mn Grad: 5.00 MARYAM Cont.VTI: 2.45 LVOT LVOT Pk Roque: 1.23 LVOT Mn Roque: 0.82 LVOT VTI: 0.29 LVOT Pk Grad: 6.00 LVOT Mn Grad: 3.00 LVOT Diam: 1.90 LVOT Area: 2.84 Diastolic Function MV Pk E: 0.95 MV Pk A: 0.56 E/A: 1.70 E'Medial: 8.49 E/E' Med: 11.20 E' Laterial: 11.40 E/E' Lat: 8.30 Right Ventricle TAPSE (mm): 20.30 TVS' Roque: 9.46 Tricuspid Valve TR Pk Roque: 1.86 TR Pk Grad: 14.00 RA Press: 8.00 RVSP: 22.00 Great Vessels Aorta Sinus of Valsalva: 3.10 2.0-3.5 cm Ao Asc: 3.50 2.1-3.4 cm Pulmonary Valve PV Pk Roque: 1.15 Peak PV Grad: 5.00 Updated in Other Vendor System with Status of Final Maurilio Cardenas MD electronically signed on 10/21/2024 12:05:39 PM with status of Final
== END ==
LOC: HO.CARD 09:13
PROVIDERS: PCP Internal Medicine; Visit Provider Student in an Organized Health Care Education/Training Program
DX: M05.9 Rheumatoid arthritis with rheumatoid factor, unspecified (principal)
CPT/HCPCS: 93306; Q9957

== ENCOUNTER → 2024-10-19 09:17 | Outpatient (BNV) | payer OTHER, SELFPAY | PROVIDERS: PCP Internal Medicine; Visit Provider Internal Medicine Cardiovascular Disease | DX: M05.9 Rheumatoid arthritis with rheumatoid factor, unspecified (principal) | CPT/HCPCS: 93306 ==

== ENCOUNTER 2024-12-31 15:16 | Outpatient (REF) | payer OTHER, SELFPAY ==
--- OUTSIDE RECORDS SUMMARY | 2024-12-31 15:20 | XMS_ITS | Encounter Summary ---
Author Organization [facility] Address [address] [place] [address] Care Team Providers Care Food Processing Chemist Name Role Phone Allen Robertson MD Primary Care Provider Un available Pawel Emery MD Primary Care Provider Unavaila Alejandra Chavira Md, MD Primary Care Provider Unavailable Grisel Frausto MD Primary Care Provider Indira vailable Encounter Details Date Type Department Care Team Description 05/16/2019 Rehabilitation Consultant Report Medical Records [address] [place] [id number] Allen Robertson MD Social History Tobacco Use Types Packs/Day Years Used Date Smoking Tobacco: Never Assessed Sex Assigned at Date Recorded Not on file documented as of this encounter Plan of Treatment Not on file documented as of this encounter Visit Diagnoses Not on filedocumented in this encounter Care Teams Food Processing Chemist Relationship Specialty Start Date End Date Allen Robertson MD PCP - General Internal Medicine 06/01/19 Pawel Emery MD PCP - General 08/07/13 05/31/19 Alejandra Valencia MD, MD PCP - General Internal Medicine 01/04/23 Grisel Frausto MD PCP - General Internal Medicine 01/31/24 documented as of this encounter
[2024-12-31 15:29] LABS: MANUAL DIFF FLAG NO
[2024-12-31 16:07] LABS: Basophils Absolute Auto 0.1 X10*3/uL (0.0-0.2); Basophils Percent Auto 1.1 % (0-2); Eosinophils Absolute Auto 0.3 X10*3/uL (0.0-0.4); Eosinophils Percent Auto 3.9 % (0-4); Hematocrit 39.9 % (37.0-47.0); Hemoglobin 12.7 g/dl (12.0-16.0); Imm Gran Abs Auto 0.02 X10*3/uL (0.00-0.03); Imm Gran Pct Auto 0.3 % (0.0-0.4); Lymphocytes Absolute Auto 2.6 X10*3/uL (1.2-4.9); Lymphocytes Percent Auto 40.7 % (20-40); Mean Corpuscular HGB Conc 31.8 g/dl (31.0-35.0); Mean Corpuscular Hemoglobin 28.2 pg (27.0-33.0); Mean Corpuscular Volume 88.7 fL (80.0-98.0); Mean Platelet Volume 9.7 fL (9.4-12.3); Monocytes Absolute Auto 0.5 X10*3/uL (0.1-1.2); Monocytes Percent Auto 7.4 % (2-11); Neutrophils Percent Auto 46.6 % (45-73); Platelet Count 321 X10*3/uL (160-400); Red Cell Distribution Width 13.2 % (11.0-16.0); White Blood Count 6.5 X10*3/uL (4.8-10.8)
[2024-12-31 17:36] LABS: Alanine Aminotransferase 34 U/L (0-31); Albumin Level 4.5 g/dL (3.5-5.0); Alkaline Phosphatase 44 U/L (39-117); Anion Gap 14 (12-20); Aspartate Amino Transferase 30 U/L (5-31); Bilirubin Total 0.4 mg/dL (0.0-1.0); Blood Urea Nitrogen 18 mg/dL (9-16); Calcium 9.3 mg/dL (8.4-10.2); Carbon Dioxide 20 mmol/L (22-29); Chloride 112 mmol/L (96-108); Cholesterol 164 mg/dL (<200); Estimated Glomerular Filt Rate > 60; Glucose Random 75 mg/dL (60-115); HDL Cholesterol 66 mg/dL (>40); LDL Cholesterol Calculated 77 mg/dL (<100); Potassium 3.8 mmol/L (3.3-5.1); Sodium 142 mmol/L (135-145); Total Protein 7.6 g/dL (6.5-8.0); Triglycerides 108 mg/dL (<150)
== END 2024-12-31 15:17 | disposition home or self-care (01) ==
LOC: HO.LAB 15:16
PROVIDERS: PCP Internal Medicine; Visit Provider Internal Medicine
DX: E78.00 Pure hypercholesterolemia, unspecified (principal); I10 Essential (primary) hypertension; K51.90 Ulcerative colitis, unspecified, without complications; M06.9 Rheumatoid arthritis, unspecified; M72.2 Plantar fascial fibromatosis; R60.0 Localized edema
CPT/HCPCS: 36415; 80053; 80061; 85025

== ENCOUNTER 2025-02-01 10:38 | Outpatient (AMB) | payer OTHER, SELFPAY ==
[2025-02-01 10:39] VITALS: BP 117/68; PULSE 68; O2SAT 97; BMI 34.6
--- NOTE | 2025-02-01 10:39 | MHC.OFFVIS ---
Vital Signs 02/01/25 10:39 Height 5 ft 5 in Weight 208 lb 1.862 oz BMI 34.6 BP 117/68 Blood Pressure Location Lt brachial Position Sitting Pulse 68 Pulse Source Pulse Oximeter Pulse Oximetry (%) 97 Oxygen Delivery Method Room Air Intake Visit Reasons: follow up Intake Note: Patient last seen by Doctor Karine Mitchell on 09/21/24. Presents today for follow up and test results. Allergies amoxicillin [AMOXICILLIN] Allergy (Intermediate, Verified 09/21/24 15:38) FACIAL SWELLING, swollen face Sulfa (Sulfonamide Antibiotics) Allergy (Unknown, Verified 09/21/24 15:38) red patches all over legs HPI Comments Details: Patient is a 58-year-old female with hypertension, hyperlipidemia, ulcerative colitis, CCP positive with ? inflammatory arthritis such as RA, osteoarthritis of the lumbar spine, fibromyalgia and history of pyoderma gangrenosum who presents today for follow-up. Interval History: Last seen 09/21/24 with me. She was complaining of hand pain, low back pain and shoulder pain. The examination was not there if there was actual synovitis of the MCPs versus fibromyalgia. 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 CCP, DASHAWN pos. anti DNA, anti RENAY negative; on methotrexate since 2020; methotrexate stopped April 2023 due to LFT elevations. Aug 2023: No synovitis. Immunosuppressives not restarted Current Rheumatology Medication(s): Gabapentin 400mg po TID Adalimumab - aaty 40mg SC every 2 weeks [facility] Medical History (Updated 05/11/24 @ 13:32 by Dania Gold) Pain in joint involving multiple sites Varicose veins of both lower extremities with pain Mixed conductive and sensorineural hearing loss History of migraine headaches Ulcerative colitis Long-term use of immunosuppressant medication Osteoarthritis of lumbar spine Fibromyalgia Tenosynovitis of fingers Dyslipidemia Essential hypertension 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 Brother No problems noted. Sister Mental health disorder Sister Mental health disorder Sister Mental health disorder Sister No problems noted. Sister No problems noted. Sister No problems noted. Sister No problems noted. 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 Review of Systems Const Details: Review of Systems Constitutional: Denies fever, chills, weight loss ENT: Denies vision changes, eye pain or eye redness, dental caries, dry mouth GI: Denies nausea, vomiting, diarrhea, abdominal pain, change in BM Pulm: Denies SOB, HENDERSON, hemoptysis, wheezing Cards: Denies chest pain, palpitations Skin: Denies Raynaud's, rash, nail changes, photosensitivity, MATERIAL SCHEDULER: Denies headaches, weakness, paresthesias, recurrent falls MSK: as per HPI All other systems reviewed and are unremarkable except noted above Physical Exam Vital Signs: Last Vital Signs Pulse 68 02/01/25 10:39 BP 117/68 02/01/25 10:39 Pulse Ox 97 02/01/25 10:39 Oxygen Delivery Method Room Air 02/01/25 10:39 BMI result Body Mass Index 34.6 Physical Examination CONSTITUITIONAL Patient alert and cooperative. Well appearing and in no apparent painful distress HEENT Conjunctiva and sclera clear. ?Pupils equal round and reactive to light. ?No lymphadenopathy. ?Normal dentition. No oral or nasal ulcers noted. No evidence of discoid rash to the kasia of ears CHEST/RESPIRATORY SYSTEM Normal respiratory effort and able to speak in complete sentences. ?Clear to auscultation bilaterally. ?No crackles, rales, rhonchi, wheezes heard. CARDIAC SYSTEM Regular rate and rhythm. ?S1 and S2 heard no murmurs. 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 Tenderness to palpation of the MCPs or PIPs bilaterally. Which is improved from her last visit. There is tenderness to palpation and positive Pedro's maneuver of the left flexor tendon. Wrists: ?Full range of motion at the wrists without pain. ?No tenderness to palpation or synovitis noted to the wrists. Elbows: Full range of motion without pain. No tenderness, weakness, swelling, increased warmth or erythema. Shoulders: Full range of motion without pain. No tenderness, weakness, swelling, increased warmth or erythema. Hips: Full range of motion without pain. Hip bursa: No tenderness to palpation Knees: ?Full range of motion. ?No tenderness, swelling, increased warmth or erythema.?No effusion or crepitations Ankles: Full range of motion. ?No tenderness, swelling, increased warmth or erythema.? Feet: ?Negative squeeze test. ?No tenderness to palpation or swelling of the MTPs. Bilateral lower extremity edema Tender points:??Tender to palpation of the neck, shoulders, chest, elbows, hips, buttocks or knees. SKIN Skin intact without rashes. Office Procedures AMB Joint Injection/Aspiration Joint Injection/Aspiration Details: Procedure was explained to the patient and consent was obtained. ? The area of interest was identified and confirmed with patient. ?This was subsequently cleaned with chlorhexidine x3. ? The area was then anesthetized using ethyl chloride spray. 20 mg Kenalog with 1 cc 1% lidocaine was injected without issue. ?Minimal to no bleeding. ?Patient tolerated procedure. Primary Site: other (Left flexor tendon injection) Prep: site was prepped using aseptic technique and ethochloride spray was applied Injected: 20 mg of, DepoMedrol, with 1 mL of and 1% plain lidocaine Procedure: The patient tolerated the procedure well Coding 16863 - Bicipital Groove Injection Procedure code (CPT) selection complete Office Meds lidocaine (PF) 10 mg/mL (1 %) injection solution Performing Provider: Karine Mitchell MD [place] [facility] [place] Administered by: Karine Mitchell MD on 02/01/25 11:42 Dose Route Admin Location Dispensed Lot Number Expiration Date [facility] Waste Management Recycling Technician 1 mL Infiltration left flexor tendon 2 mL [id number] 02/12/27 09994-691-04 [facility] Kenalog 40 mg/mL suspension for injection Performing Provider: Karine Mitchell MD [place]forming [place] [facility] [place] Administered by: Karine Mitchell MD on 02/01/25 11:42 Dose Route Admin Location Dispensed Lot Number Expiration Date [place] [employer] Recycling Technician 20 mg Tendon Sheath Inj. left flexor tendon 1 mL [id number] 05/14/26 [address]-4 [employer] Results Reviewed Results Reviewed: Laboratory Tests 09/25/24 12/31/24 12:00 15:27 WBC 6.5 RBC 4.50 Hgb 12.7 Hct 39.9 Plt Count 321 ESR 7 Sodium 142 Potassium 3.8 Chloride 112 H Carbon Dioxide 20 L BUN 18 H Creatinine 0.87 Total Bilirubin 0.4 AST 30 ALT 34 H Alkaline Phosphatase 44 C-Reactive Protein 0.22 Laboratory Tests 12/07/18 01/31/20 10:30 15:11 Cycl Citrul Peptide IgG 37 H DASHAWN Screen Positive H DASHAWN Titer 1:320 H Assessment & Plan Assessment & Plan (1) Seropositive rheumatoid arthritis: Comment: CCP, DASHAWN pos. anti DNA, anti RENAY negative; on methotrexate since 2020; methotrexate stopped April 2023 due to LFT elevations. Aug 2023: No synovitis Code(s): M05.9 - Rheumatoid arthritis with rheumatoid factor, unspecified Category: Medical Plan: #RA Patient is a 59-year-old female with seropositive rheumatoid arthritis based on positive CCP. Recently started on Humira every other week with improvement in her symptoms. However she feels that after a week of the Humira the effect wanes and she can tell the difference noticing return of symptoms. Based on this I think it would be beneficial to increase the frequency of her Humira from every other week to every week. Exam has improved on the Humira Plan - Humira 40mg SC every week - RTC 4 months - Labs before visit: CBC, CMP, ESR, CRP, hepatitis panel, T spot (2) Fibromyalgia: Code(s): M79.7 - Fibromyalgia Category: Medical Plan: #Fibromyalgia Patient is here with fibromyalgia. We will continue the gabapentin 400mg tid Send to physical therapy for bilateral rotator cuff shoulder exercises (3) Tenosynovitis of wrist flexor: Code(s): M65.939 - Unspecified synovitis and tenosynovitis, unspecified forearm Plan: #Left wrist flexor tenosynovitis Status post steroid injection today. Recommended splinting while she is doing her various activities for her work aid in healing. 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) use of immunosuppressive biologic Plan: #Long-term Use of TNF Inhibitors: [place] Discussed with the patient the benefits and risks of TNF inhibitors for the management of the rheumatic condition Benefits include reduce pain, maintenance of remission and reduction of flares as well as ?progression of the disease Risks include injection sites/infusion reactions, serious infections (such as bacterial infections, opportunistic infections), malignancy, delaminating syndromes, autoimmune phenomena, CHF exacerbations, palmar plantar psoriasis and cytopenias Recommended rotating injection sites, and holding medication during and for up to 1 week after resolution of a febrile illness or open skin wound Plan I spent 30 minutes reviewing the record and labs, seeing the patient, discussing the treatment plan and documenting in the medical record ? Orders: Orders Erythrocyte Sedimentation Rate Today M05.9 - Rheumatoid arthritis with rheumatoid factor, unspecified Hepatitis A,B,C Profile Today M05.9 - Rheumatoid arthritis with rheumatoid factor, unspecified AMB Joint Injection/Aspiration Today M05.9 - Rheumatoid arthritis with rheumatoid factor, unspecified, M65.939 - Unspecified synovitis and tenosynovitis, unspecified forearm Complete Blood Count Auto Diff Today M05.9 - Rheumatoid arthritis with rheumatoid factor, unspecified Comprehensive Met. Panel Today M05.9 - Rheumatoid arthritis with rheumatoid factor, unspecified C Reactive Protein Today M05.9 - Rheumatoid arthritis with rheumatoid factor, unspecified T Spot TB Today M05.9 - Rheumatoid arthritis with rheumatoid factor, unspecified Medications: New lidocaine (PF) 1 mL Infiltration ONCE 2 mL 0RF M05.9 - Rheumatoid arthritis with rheumatoid factor, unspecified, M65.939 - Unspecified synovitis and tenosynovitis, unspecified forearm Kenalog (triamcinolone acetonide) 20 mg (0.5 mL) Tendon Sheath Inj. ONCE 0.5 mL 0RF NS M05.9 - Rheumatoid arthritis with rheumatoid factor, unspecified, M65.939 - Unspecified synovitis and tenosynovitis, unspecified forearm Changed From adalimumab-aaty 40 mg (0.4 mL) subcut Q2W 2 ea 5RF M05.9 - Rheumatoid arthritis with rheumatoid factor, unspecified To adalimumab-aaty 40 mg (0.4 mL) subcut .every week 4 ea 5RF M05.9 - Rheumatoid arthritis with rheumatoid factor, unspecified Coding Level of Care Code Est Pt Level 4 (59775) Complex EM visit Add On G2211 Diagnoses Seropositive rheumatoid arthritis M05.9 Fibromyalgia M79.7 Tenosynovitis of wrist flexor M65.939 Encounter for monitoring of adalimumab therapy Z51.81; Z79.620 CPT Codes Coding - Joint 1: 42813 - Bicipital Groove Injection ([id number])
== END 2025-02-01 11:16 | disposition home or self-care (01) ==
LOC: HO.RHE 10:38
PROVIDERS: PCP Internal Medicine; Visit Provider Student in an Organized Health Care Education/Training Program
DX: M05.79 Rheumatoid arthritis with rheumatoid factor of multiple sites without organ or systems involvement (principal); M79.7 Fibromyalgia; M65.132 Other infective (teno)synovitis, left wrist; Z51.81 Encounter for therapeutic drug level monitoring; Z79.620 Long term (current) use of immunosuppressive biologic
CPT/HCPCS: 20550; 99214

== ENCOUNTER → 2025-02-01 10:38 | Outpatient (BNVA) | payer OTHER, SELFPAY | PROVIDERS: PCP Internal Medicine; Visit Provider Student in an Organized Health Care Education/Training Program | DX: M05.9 Rheumatoid arthritis with rheumatoid factor, unspecified (principal); M79.7 Fibromyalgia; M65.939 Unspecified synovitis and tenosynovitis, unspecified forearm; Z51.81 Encounter for therapeutic drug level monitoring; Z79.620 Long term (current) use of immunosuppressive biologic | CPT/HCPCS: 20550; 99212; J3300 ==

== ENCOUNTER 2025-04-23 15:05 | Outpatient (AMB) | payer OTHER, SELFPAY ==
[2025-04-23 15:19] VITALS: BMI 34.6
--- NOTE | 2025-04-23 15:19 | A.OFFVIS_ITS ---
Vital Signs 04/23/25 15:19 Height 5 ft 5 in Weight 208 lb BMI 34.6 Intake Visit Reasons: Follow up 10/07 US Intake Note: follow up US 10/07/25 for bilateral LE VV w/ pain to touch. Right LE worse than the Left LE. Accompanied by: Self / Same As Patient Allergies amoxicillin [AMOXICILLIN] Allergy (Intermediate, Verified 04/23/25 15:23) FACIAL SWELLING, swollen face Sulfa (Sulfonamide Antibiotics) Allergy (Unknown, Verified 04/23/25 15:23) red patches all over legs HPI HPI Follow up 10/07 US: Details: Very pleasant 59-year-old female presents for follow-up regarding venous disease. It appears that she was seen back in September of 2023 by us. Subsequently was lost to follow-up and most recently had venous insufficiency testing. She has been wearing compression stockings since that time. She con tinues to complain of swollen tired heavy legs in particular the right lower extremity. It has progressively been getting worse and she presents for follow- up. Her venous insufficiency testing was performed on 10/05/2024. [facility] Medical History Pain in joint involving multiple sites Varicose veins of both lower extremities with pain Mixed conductive and sensorineural hearing loss History of migraine headaches Ulcerative colitis Long-term use of immunosuppressant medication Osteoarthritis of lumbar spine Fibromyalgia Tenosynovitis of fingers Dyslipidemia Essential hypertension 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 Brother No problems noted. Sister Mental health disorder Sister Mental health disorder Sister Mental health disorder Sister No problems noted. Sister No problems noted. Sister No problems noted. Sister No problems noted. 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 Review of Systems Const Reports as per HPI ENT Reports no additional complaints Card Denies chest pain, Denies chest pain at rest and Denies chest pain with activity Resp Denies chest congestion and Denies cough GI Reports no additional complaints Musc Details: pain over varicosities, aching of lower extremities, swelling, cramping, hea viness and tiredness, itching Denies abnormal gait Skin/Breast Reports pruritus and Denies wounds Neuro Reports no additional complaints and Denies abnormal gait Psych Denies no additional complaints Physical Exam Vital Signs: BMI result Body Mass Index 34.6 Const General: cooperative, healthy appearing and comfortable Orientation/consciousness: oriented to person, oriented to place and oriented to time Neck Carotids: no bruits Chest Chest palpation & inspection: normal inspection of the chest and normal palp ation of entire chest wall Resp Effort & Inspection: normal respiratory effort and able to speak in complete sentences Cardio Rate: regular rate Heart sounds: S1 normal heart sound present and S2 normal heart sound present Peripheral pulses: Peripheral pulses 2+ throughout GI Inspection: Yes normal to inspection Skin Other: +2 edema, large rope-like varicosities greater than 4 mm CEAP Classification C4 - skin color changes Ep - Etiology Primary As - superficial veins P - reflux General skin exam: dry skin Neuro General: oriented to person, oriented to place and oriented to time Extrem Right lower extremity: full ROM, normal capillary refill and edema Left lower extremity: full ROM, normal capillary refill and edema Psych Mental Status: mental status grossly normal Results Reviewed Results Reviewed: Brief summary of venous insufficiency testing is as follows: right great saphenous vein: Positive right small saphenous vein: negative right accessory vein: none present left great saphenous vein: negative left small saphenous vein: negative left accessory vein: none present Please note there is no evidence of any venous aneurysms or significant tortuosity Assessment & Plan Assessment & Plan (1) Varicose veins of right lower extremity with inflammation: Code(s): I83.11 - Varicose veins of right lower extremity with inflammation Category: Medical Plan: This patient has varicose veins with inflammation. They continue to be a source of discomfort for the patient. The patient has tried conservative treatment with compression, leg elevation and exercise program for over 3 months time. They have been compliant with all treatment. This has provided minimal relief for the patient. I do not anticipate this course of treatment will alter the underlying etiology. The patient has been scheduled for lower extremity venous treatment inclusive of --- right great saphenous vein Cyanoacralate ablation. Risks, benefits, and complications of this procedure has been discussed in detail with the patient including but not limited to bleeding, infection, and the development of a DVT. The patient has demonstrated a clear understanding and has consented. We will schedule the patient as soon as possible. Thank you for allowing us to participate in this patient's care. If there are any questions or concerns please do not hesitate to contact us. Coding Level of Care Code Est Pt Level 4 (39102) Diagnoses Varicose veins of right lower extremity with inflammation I83.11
--- OUTSIDE RECORDS SUMMARY | 2025-04-23 18:11 | XMS_ITS | Clinical Summary ---
Author Organization [facility] Address [address] [place] [address] Phone Care Team Providers Care Call Circuit Worker Name Role Phone Grisel Frausto MD Primary Care Provider [phone] Medications mesalamine (LIALDA) 1.2 gram EC tabletIndication s:Ulcerative colitis with complication, unspecified location ([facility] V24, [facility] V28) Take 4 tablets (4.8 g total) by mouth 1 (one) time each day with breakfast. 120 each 11 02/26/2025 02/27/20 26 Active Encounters Date Type Department Care Team Description 03/30/2025 9:47 AM EDT - 03/30/2025 11:59 PM EDT [facility] [address] [address] Encounter for screening mammogram for breast cancer Discharge Disposition: Home or Self Care from Last 3 Months Surgical History Surgery Date Site/Laterality Comments STEREOTACTIC CORE BIOPSY Left BREAST SURGERY Left Medical History Medical History Date Comments GERD (gastroesophageal reflux disease) 07/12/2019 DX:GERD (gastroesophageal reflux disease) Hypertension 07/12/2019 DX:Hypertension Osteoarthritis (arthritis du e to wear and tear of joints) 07/12/2019 DX:Osteoarthritis (arthritis due to wear and tear of joints) Asthma 07/12/2019 DX:Asthma Neuropathy 07/12/2019 DX:Neuropathy Depression 07/12/2019 DX:Depression Hyperlipidemia 07/12/2019 DX:Hyperlipidemi a Anxiety 07/12/2019 DX:Anxiety Migraines 07/12/2019 DX:Migraines Restless leg syndrome 07/12/2019 DX:Restles s leg syndrome Autoimmune disease (CMS/HCC V24) 07/12/2019 DX:Autoimmune disease (HCC) Family History Medical History Relation Name Comments Breast cancer Mother's Sister Relation Name Status Comments Mother's Sister Alive Social History Tobacco Use Types Packs/Day Years Used Date Smoking Tobacco: Never Smokeless Tobacco: Never Comments No Sex and Gender Information Value Date Recorded Sex Assigned at Not on file Legal Sex Female 8:24 AM EST Gender Identity Not on file Sexual Orientation Not on file Obstetrics History Last Filed Vital Signs Vital Sign Reading Time Taken Comments Blood Pressure - - Pulse - - Temperature - - Respiratory Rate - - Oxygen Saturation - - Inhaled Oxygen Concentration - - Weight 94.3 kg (208 lb) 03/30/2025 9:53 AM EDT Height 165.1 cm (5' 5 ) 03/30/2025 9:53 AM EDT Body Mass Index 34.61 03/30/2025 9:53 AM EDT Plan of Treatment Upcoming Encounters Date Type Department Care Team (Late st Contact Info) Description 05/24/2025 10:40 AM EDT Office Visit Gastroenterology - [address] [facility] [address] [place] [phone] Stella Mcpherson MD 299 [facility] Rakes[address] [place] [phone] Health Maintenance Due Date Last Done Comments Hepatitis B Vaccines (1 of 3 - 19+ 3-dose series) 1984 Cervical Cancer Screening: Pap Smear 1986 Cholesterol Screening (Lipid Panel) 10/17/2022 Colorectal Cancer Screening: Colonoscopy 10/17/2022 Depression Screening 10/17/2022 HIV Screening 10/17/2022 Hepatitis C Screening 10/17/2022 Social Influencers of Health Screening 10/17/2022 Hypertension/CHF/CAD Annual BMP Blood Test 10/30/2022 Pneumococcal Vaccine: 50+ Years (3 of 3 - PCV20 or PCV21) 10/01/2024 10/01/2019, 10/01/2019 Pneumococcal Vaccine: Pediatrics (0 to 5 Years) and At-Risk Patients (6 to 64 Years) (3 of 3 - PCV20 or PCV21) 10/01/2024 10/01/2019, 10/01/2019 DTaP,Tdap,and Td Vaccines (2 - Td or Tdap) 03/01/2027 03/01/2017 Breast Cancer Screening 03/30/2027 03/30/20 25, 01/20/2024, 09/30/2022, Additional history exists RSV Immunization Adult Patients (1 - 1-dose 75+ series) 2040 Zoster Vaccines Completed 09/11/2020, 07/11/2020 COVID-19 Vaccine Completed 08/07/2024, 09/2023, 08/04/2022, Additional history exists Influenza Vaccine Completed 08/07/2024, , 08/04/2022, Additional history exists HIB Vaccines Aged Out No longer eligi ble based on patient's age to complete this topic HPV Vaccines Aged Out No longer eligi ble based on patient's age to complete this topic Hepatitis A Vaccines Aged Out No long er eligible based on patient's age to complete this topic IPV Vaccines Aged Out No longer eligi ble based on patient's age to complete this topic MMR Vaccines Aged Out No longer eligi ble based on patient's age to complete this topic Meningococcal ACWY Vaccine Aged Out N o longer eligible based on patient's age to complete this topic Meningococcal B Vaccine Aged Out No l onger eligible based on patient's age to complete this topic RSV Immunization Patients Under 20 months Aged Out No longer eligible based on patient's age to complete this topic Varicella Vaccines Aged Out No longer eligible based on patient's age to complete this topic Procedures Procedure Name Priority Date/Time Associated Diagnosis Comments MG MAMMO DIGITAL SCREENING W ALESHA BILAT Routine 03/30/2025 10:02 AM EDT Encounter for screening mammogram for breast cancer from Last 3 Months Results * MG Mammo Digital Screening w Alesha bilat (03/30/2025 10:02 AM EDT) Anatomical Region Laterality Modality Breast Bilateral Mammography 04/01/2025 10:3 9 AM EDT Impressions 04/01/2025 10:54 AM EDT No mammographic evidence of malignancy. ?? No suspicious interval change. A negative mammogram in the presence of a clinically suspicious palpable abnormality does not preclude the possibility of malignancy or alter the indications for biopsy. ASSESSMENT: ?? BI-RADS 2: BENIGN RECOMMENDATION(S): 1: Routine screening mammogram BILATERAL in 1 year. [facility] [address], [id number] -------- FINAL REPORT -------- Dictated By: Aaron Pablo Dictated Date: 04/01/2025 10:39 ET Assigned Physician: Aaron Pablo Reviewed and Electronically Signed By: Aaron Pablo Signed Date: 04/01/2025 10:54 ET Workstation ID: [id number] Transcribed By: Self Edit Transcribed Date: 04/01/2025 10:41 ET Narrative 04/01/2025 10:54 AM EDT EXAM: ??SCREENING MAMMOGRAPHY, BILATERAL HISTORY: ??SCREENING. ??Family history of breast cancer, maternal aunt. ??Excisional left breast biopsy 1 o'clock position COMPARISON: ??01/20/24, 09/30/22, 12/25/20 TECHNIQUE: Synthesized CC and MLO projections of each breast. ??Tomosynthesis of each breast in the CC and MLO projections. ADDITIONAL IMAGING: None Computer-aided detection was employed with the iCAD ??[employer] 3-D. TISSUE DENSITY: There are scattered areas of fibroglandular density. (BI-RADS category B) FINDINGS: RIGHT BREAST: No suspicious mass. No suspicious calcification. No distortion. ?? No additional suspicious right breast findings LEFT BREAST: No new suspicious mass. No suspicious calcification. ? There is evidence of previous upper outer left breast surgery. There are several small varying sized low density focal asymmetries one of which has an associated biopsy site marker throughout the deep central and upper outer left breast. ??When compared to previous including 12/25/20 there has been no suspicious interval change Procedure Note Aaron Pablo MD - 04/01/2025 EXAM: SCREENING MAMMOGRAPHY, BILATERAL HISTORY: SCREENING. Family history of breast cancer, maternal aunt.Excisional left breast biopsy 1 o'clock position COMPARISON: 01/20/24, 09/30/22, 12/25/20 TECHNIQUE: Synthesized CC and MLO projections of each breast.Tomosynthesis of each breast in the CC and MLO projections. ADDITIONAL IMAGING: None Computer-aided detection was employed with the [employer] AI 3-D. TISSUE DENSITY: There are scattered areas of fibroglandular density.(BI-RADS category B) FINDINGS: RIGHT BREAST: No suspicious mass. No suspicious calcification. No distortion. Noadditional suspicious right breast findings LEFT BREAST: No new suspicious mass. No suspicious calcification. There is evidence of previous upper outer left breast surgery. There are several small varying sized low density focal asymmetries one ofwhich has an associated biopsy site marker throughout the deep central andupper outer left breast. When compared to previous including 12/25/20there has been no suspicious interval change IMPRESSION: No mammographic evidence of malignancy. No suspicious interval change. A negative mammogram in the presence of a clinically suspicious palpableabnormality does not preclude the possibility of malignancy or alter theindications for biopsy. ASSESSMENT: BI-RADS 2: BENIGN RECOMMENDATION(S): 1: Routine screening mammogram BILATERAL in 1 year. [facility] [address], [address] -------- FINAL REPORT -------- Dictated By: Aaron Pablo Dictated Date: 04/01/2025 10:39 ET Assigned Physician: Aaron Pablo Reviewed and Electronically Signed By: Aaron Pablo Signed Date: 04/01/2025 10:54 ET Workstation ID: [id number] Transcribed By: Self Edit Transcribed Date: 04/01/2025 10:41 ET us Self Referral Sppl IMG BI PROCEDURES Final Resul t from Last 3 Months Insurance [facility] PLAN Care Teams Call Circuit Worker Relationship Specialty Start Date End Date Grisel Frausto MD [address] [place] [address] [place] [address] PCP - General Internal Medicine 03/06/25
== END 2025-04-24 10:13 | disposition home or self-care (01) ==
LOC: HO.HVS 15:06
PROVIDERS: PCP Internal Medicine; Visit Provider Surgery Vascular Surgery
DX: I83.11 Varicose veins of right lower extremity with inflammation (principal)
CPT/HCPCS: 99214

== ENCOUNTER → 2025-04-23 15:05 | Outpatient (BNVA) | payer OTHER, SELFPAY | PROVIDERS: PCP Internal Medicine; Visit Provider Surgery Vascular Surgery | DX: I83.11 Varicose veins of right lower extremity with inflammation (principal) | CPT/HCPCS: 99212 ==

== ENCOUNTER 2025-05-10 10:26 | Outpatient (AMB) | payer OTHER, SELFPAY ==
--- NOTE | 2025-05-10 10:28 | MHC.OFFVIS ---
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 Brother No problems noted. Sister Mental health disorder Sister Mental health disorder Sister Mental health disorder Sister No problems noted. Sister No problems noted. Sister No problems noted. Sister No problems noted. 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 The depth and diameter of the vein(s) to be treated was documented. The patient was placed supine on the procedure table and the leg was prepped and draped using sterile technique. Ultasound guidance was again used to localize the access site. 1% lidocaine was injected as a local anesthetic in the subcutaneous tissues at the target location in the GSV in the lower leg. Using ultrasound guidance, access was gained at this location with the 19 gauge thin walled access needle and followed by introduction of a short guidewire, location confirmed with ultrasound. A small, 3 mm incision was made at the access site to allow for introduction and placement of the 7 Fr x7cm introducer/dilator. The dilator and guidewire were removed. The 0.035 guidewire from the VenaSeal kit was then introduced and positioned at the saphenofemoral junction using ultrasound guidance. The 80 cm 7 Fr introducer sheath/dilator was positioned 5cm from the saphenofemoral junction. The guidewire and dilator were removed, and the remaining sheath was flushed with sterile saline, with the syringe remaining in place prior to the next steps. The cyanoacrylate adhesive was precisely primed into the 5 F delivery catheter and this catheter/syringe combination was attached within the dispenser gun. This assembly was introduced through the 7F sheath and positioned 5 cm caudal of the saphenofemoral junction under ultrasound guidance. The steps from the IFU were followed for dispensing amounts, locations and compression times, 2 aliquots proximally with 3 minutes of compression, and 1 aliquot every 3 cm distally with 30 sec of compression along the course of the vessel. Following the last injection and compression sequence, the catheter and introducer sheath were pulled out from the access site. Hemostasis was achieved with manual compression and an adhesive bandage was applied to the incision. Ultrasound confirmed complete coaptation and closure of the treated segments of the GSV, and the absence of any DVT at the saphenofemoral junction. Treatment time was approximately 5 minutes and the vein length treated was 30 cm. The drapes were removed and the patient cleaned and prepared for discharge. Post op ultrasound check is scheduled for 48-72 hours and the patient was given written post-op instructions. 97048 - Endoven Ther Chem Adhes 1st All charges added?: Procedure code (CPT) selection complete Assessment & Plan Assessment & Plan (1) Varicose veins of right lower extremity with inflammation: Comment: 05/10/2025 - right great saphenous vein Cyanoacralate ablation Code(s): I83.11 - Varicose veins of right lower extremity with inflammation Category: Medical Plan: See op note Coding Level of Care Code Procedure Only Diagnoses Varicose veins of right lower extremity with inflammation I83.11 CPT Codes Details - Vascular 3: 45381 - Endoven Ther Chem Adhes 1st ([id number])
--- OUTSIDE RECORDS SUMMARY | 2025-05-10 11:15 | XMS_ITS | Clinical Summary ---
Author Organization [facility] Address [address] [place] [address] Phone Care Team Providers Care Urban Planning Professor Name Role Phone Grisel Frausto MD Primary Care Provider [phone] Medications mesalamine (LIALDA) 1.2 gram EC tabletIndication s:Ulcerative colitis with complication, unspecified location ([facility] V24, [facility] V28) Take 4 tablets (4.8 g total) by mouth 1 (one) time each day with breakfast. 120 each 11 02/26/2025 02/27/20 26 Active Encounters Date Type Department Care Team Description 03/30/2025 9:47 AM EDT - 03/30/2025 11:59 PM EDT [facility] [address] [address] Encounter for screening mammogram for [...] Office Visit Gastroenterology - [address] [facility] [address] [place] [phone] Stella Mcpherson MD 299 [facility] Rakesh [address] [place] [address] Health Maintenance Due Date Last Done Comments [...] AM EDT No mammographic evidence of malignancy. No suspicious interval change. A negative mammogram in the presence of a clinically suspicious palpable abnormality does not preclude the possibility of malignancy or alter the indications for biopsy. ASSESSMENT: BI-RADS 2: BENIGN RECOMMENDATION(S): 1: Routine screening mammogram BILATERAL in 1 year. [facility] at [address], [address] -------- FINAL REPORT -------- Dictated By: Aaron Pablo Dictated Date: 04/01/2025 10:39 ET Assigned Physician: Aaron Pablo Reviewed and Electronically Signed By: Aaron Pablo Signed Date: 04/01/2025 10:54 ET Workstation ID: [id number] Transcribed By: Self Edit Transcribed Date: 04/01/2025 10:41 ET Narrative 04/01/2025 10:54 AM EDT EXAM: SCREENING MAMMOGRAPHY, BILATERAL HISTORY: SCREENING. Family history of breast cancer, maternal aunt. Excisional left breast biopsy 1 o'clock position COMPARISON: 01/20/24, 09/30/22, 12/25/20 TECHNIQUE: Synthesized CC and MLO projections of each breast. Tomosynthesis of each breast in the CC and MLO projections. ADDITIONAL IMAGING: None Computer-aided detection was employed with the [employer] 3-D. TISSUE DENSITY: There are scattered areas of fibroglandular density. (BI-RADS category B) FINDINGS: RIGHT BREAST: No suspicious mass. No suspicious calcification. No distortion. No additional suspicious right breast findings LEFT BREAST: No new suspicious mass. No suspicious calcification. There is evidence of previous upper outer left breast surgery. There are several small varying sized low density focal asymmetries one of which has an associated biopsy site marker throughout the deep central and upper outer left breast. When compared to previous including 12/25/20 there has [...] year. [facility]amm[facility] [address], [id number] -------- FINAL REPORT -------- Dictated By: Aaron Pablo Dictated Date: 04/01/2025 10:39 ET Assigned Physician: Aaron Pablo Reviewed and Electronically Signed By: Aaron Pablo Signed Date: 04/01/2025 10:54 ET Workstation ID: [id number] Transcribed By: Self Edit Transcribed Date: 04/01/2025 10:41 ET us Self Referral Sppl IMG BI PROCEDURES Final Resul t from Last 3 Months Insurance [facility] PLAN Care Teams Urban Planning Professor Relationship Specialty Start Date End Date Grisel Frausto MD [address] [place] [address] [place] [address] PCP - General Internal Medicine 03/06/25
== END 2025-05-10 11:28 | disposition home or self-care (01) ==
LOC: HO.HVS 10:27
PROVIDERS: PCP Internal Medicine; Visit Provider Surgery Vascular Surgery
DX: I83.11 Varicose veins of right lower extremity with inflammation (principal)
CPT/HCPCS: 36482

== ENCOUNTER → 2025-05-10 10:26 | Outpatient (BNVA) | payer OTHER, SELFPAY | PROVIDERS: PCP Internal Medicine; Visit Provider Surgery Vascular Surgery | DX: I83.11 Varicose veins of right lower extremity with inflammation (principal); H90.8 Mixed conductive and sensorineural hearing loss, unspecified; K51.90 Ulcerative colitis, unspecified, without complications; Z79.60 Long term (current) use of unspecified immunomodulators and immunosuppressants; M79.7 Fibromyalgia; E78.5 Hyperlipidemia, unspecified; I10 Essential (primary) hypertension | CPT/HCPCS: 36482; J2003 ==

== ENCOUNTER 2025-05-23 14:43 | Outpatient (REF) | payer OTHER, SELFPAY ==
--- OUTSIDE RECORDS SUMMARY | 2025-05-23 14:46 | XMS_ITS | Patient Health Record ---
Author Organization [facility] Address [address] [place] [address] Care Team Providers Care Safety Director Name Role Phone Laureano MONTGOMERY, [facility] Primary Care Provider Unavail able Jitendra Ivey Unavailable [phone] Allergies Allergen (clinical drug ingredient) Drug/Non Drug Allergy documented on EMR Reaction Allergy Type Onset Date Status amoxicillin Amoxicillin swelling Drug Allergy Act bety sulfa itchy Drug Allergy Active Reason For Referral No Information Medications Medication SIG (Take, Route, Frequency, Duration) Notes Start Date End Date Status Vitamin C 500 mg Act bety Verapamil HCl 180 mg Active Veramyst Active Protonix 40 mg Activ e Calcium-Vitamin D 1200/100 mg Active Asacol 400 mg enteric coated three times a day Active Tylenol prn Active Miladis Allergy 180 mg cap Active Butalbital-APAP Acti ve Baclofen 10 mg Activ e predniSONE 10 mg Act bety Xopenex 45 mcg Activ e Flovent HFA 220 mcg twice a day Active Problems No Known Problems Plan Of Treatment Pending Test Test Name Order Date X ray : Foot, left 3V 12/02/2011 Insurance Providers Payer Name Payer Address Payer Phone Subscriber Number Group Number Insured Name Patient Relationship to Insured Coverage Start Date Coverage End Date Cigna [address] [place] [address] [id number] Mario Alvarado Spouse - patient is the spouse of the insured Medical (General) History Medical History History ICD Code reflux measles hypertension headaches/migraines chicken pox colitis back, hip, knee pain asthma Arthritis Surgical History Surgery Date(Month/Year) ear surgery 2001, 2005 hysterectomy 2006 tonsillectomy 1991 gynecological surgery 1992 bunionectomy
--- OUTSIDE RECORDS SUMMARY | 2025-05-23 14:46 | XMS_ITS | Clinical Summary ---
Author Organization [facility] Address [address] [place] [address] Phone Care Team Providers Care Fire Medic Name Role Phone Grisel Frausto MD Primary Care Provider [phone] Medications mesalamine (LIALDA) 1.2 gram EC tabletIndication s:Ulcerative colitis with complication, unspecified location ([facility] V24, [facility] V28) Take 4 tablets (4.8 g total) by mouth 1 (one) time each day with breakfast. 120 each 11 02/26/2025 02/27/20 26 Active Encounters Date Type Department Care Team Description 03/30/2025 9:47 AM EDT - 03/30/2025 11:59 PM EDT [facility] [address] [address] Encounter for screening mammogram for [...] Office Visit Gastroenterology - [address] [facility] [address] [place] [phone] Stella Mcpherson MD 299 [facility] Rakes[address] [place] [address] Health Maintenance Due Date Last Done Comments [...] - PCV20 or PCV21) 10/01/2024 10/01/2019, 10/01/2019 Influenza Vaccine (#1) 2025 , 08/24/2023, 08/04/2022, Additional history exists DTaP,Tdap,and Td Vaccines (2 - Td or Tdap) 03/01/2027 03/01/2017 Breast Cancer Screening 03/30/2027 03/30/20 25, 01/20/2024, 09/30/2022, Additional history exists RSV Immunization Adult Patients (1 - 1-dose 75+ series) 2040 Zoster Vaccines Completed 09/11/2020, 07/11/2020 COVID-19 Vaccine Completed 08/07/2024, 09/2023, 08/04/2022, Additional history exists HIB Vaccines Aged [...] year. [facility] at [address], [address] -------- FINAL REPORT -------- Dictated By: Aaron Pablo Dictated Date: 04/01/2025 10:39 ET Assigned Physician: Aaron Pablo Reviewed and Electronically Signed By: Aaron Pablo Signed Date: 04/01/2025 10:54 ET Workstation ID: [id number] Transcribed By: Self Edit Transcribed Date: 04/01/2025 [...] None Computer-aided detection was employed with the [employer] 3-D. TISSUE DENSITY: There are scattered [...] None Computer-aided detection was employed with the [employer] 3-D. TISSUE DENSITY: There are scattered [...] year. [facility]amm[facility] at [address], [address] -------- FINAL REPORT -------- Dictated By: Aaron Pablo Dictated Date: 04/01/2025 10:39 ET Assigned Physician: Aaron Pablo Reviewed and Electronically Signed By: Aaron Pablo Signed Date: 04/01/2025 10:54 ET Workstation ID: [id number] Transcribed By: Self Edit Transcribed Date: 04/01/2025 10:41 ET us Self Referral Sppl IMG BI PROCEDURES Final Resul t from Last 3 Months Insurance [facility] PLAN Care Teams Fire Medic Relationship Specialty Start Date End Date Grisel Frausto MD [address] [place] [address] Dr [place], [place] [address] PCP - General Internal Medicine 03/06/25
[2025-05-23 14:57] LABS: MANUAL DIFF FLAG NO
[2025-05-23 15:06] LABS: Hematocrit 37.7 % (37.0-47.0); Hemoglobin 12.6 g/dl (12.0-16.0); Imm Gran Abs Auto 0.02 X10*3/uL (0.00-0.03); Imm Gran Pct Auto 0.3 % (0.0-0.4); Lymphocytes Absolute Auto 2.6 X10*3/uL (1.2-4.9); Mean Corpuscular HGB Conc 33.4 g/dl (31.0-35.0); Mean Corpuscular Hemoglobin 29.5 pg (27.0-33.0); Mean Corpuscular Volume 88.3 fL (80.0-98.0); NRBC Abs Auto 0.000 X10*3/uL (0.0-0.012); NRBC Pct Auto 0.0 /100WBC (0.0-0.2); Platelet Count 322 X10*3/uL (160-400); Red Blood Count 4.27 X10*6/uL (4.20-5.50); White Blood Count 7.3 X10*3/uL (4.8-10.8)
[2025-05-23 15:53] LABS: Alanine Aminotransferase 36 U/L (0-31); Albumin Level 4.5 g/dL (3.5-5.0); Alkaline Phosphatase 42 U/L (39-117); Anion Gap 10 (12-20); Aspartate Amino Transferase 24 U/L (5-31); Blood Urea Nitrogen 20 mg/dL (9-16); Calcium 9.1 mg/dL (8.4-10.2); Carbon Dioxide 26 mmol/L (22-29); Chloride 110 mmol/L (96-108); Estimated Glomerular Filt Rate > 60; Potassium 3.9 mmol/L (3.3-5.1); Sodium 142 mmol/L (135-145); Total Protein 6.8 g/dL (6.5-8.0)
[2025-05-24 08:10] LABS: HBS Num1 0.79 mIU/mL (0-7.99); HBc Num1 0.11 S/CO (0.00-0.79); HBsAGNum1 0.27 S/CO (0.00-0.99); Hepatitis A Antibody IgM 0.16 Index (0-0.79); Hepatitis B Surface Antigen Negative (Negative); ~HepC Num1 0.17 S/CO (0.00-0.79); ~Hepatitis A Antibody IgM Nonreactive (Nonreactive); ~Hepatitis B Surface Antibody NONREACTIVE (Nonreactive); ~Hepatitis C Antibody Nonreactive (Nonreactive)
[2025-05-26 15:38] LABS: TS Negative Control Passed; TS Panel A 0; TS Panel B 0; TS Positive Control Passed; TSpotTB Negative (Negative)
== END 2025-05-23 14:44 | disposition home or self-care (01) ==
LOC: HO.LAB 14:43
PROVIDERS: PCP Internal Medicine; Visit Provider Student in an Organized Health Care Education/Training Program
DX: M05.9 Rheumatoid arthritis with rheumatoid factor, unspecified (principal); I83.11 Varicose veins of right lower extremity with inflammation; Z98.890 Other specified postprocedural states
CPT/HCPCS: 36415; 80053; 85025; 85652; 86140; 86481; 86704; 86706; 86709; 86803; 87340; 99212

== ENCOUNTER 2025-06-07 10:21 | Outpatient (AMB) | payer OTHER, SELFPAY ==
--- NOTE | 2025-06-07 10:27 | A.OFFVIS_ITS ---
Vital Signs 06/07/25 10:38 Height 5 ft 5 in Weight 215 lb 6.266 oz BMI 35.8 BP 130/90 H Blood Pressure Location Rt brachial Position Sitting Pulse 75 Pulse Source Pulse Oximeter Pulse Oximetry (%) 96 Oxygen Delivery Method Room Air Intake Visit Reasons: follow up Intake Note: Patient presents for RA follow up. Allergies amoxicillin (AMOXICILLIN) Allergy (Intermediate, Verified 06/07/25 10:32) FACIAL SWELLING, swollen face Sulfa (Sulfonamide Antibiotics) Allergy (Unknown, Verified 06/07/25 10:32) red patches all over legs HPI Comments Details: Patient is a 59-year-old female with hypertension, hyperlipidemia, ulcerative colitis, CCP positive with ? inflammatory arthritis such as RA, osteoarthritis of the lumbar spine, fibromyalgia and history of pyoderma gangrenosum who presents today for follow-up. Interval History: Last seen 02/01/25 with me - [place] some improvement but notes the efficacy wears off just before the next dose - Main complaints are the right shoulder and left wrist. 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 CCP, DASHAWN pos. anti DNA, anti RENAY negative; on methotrexate since 2020; methotrexate stopped April 2023 due to LFT elevations. Aug 2023: No synovitis. Immunosuppressives not restarted Current Rheumatology Medication(s): Gabapentin 400mg po TID Adalimumab - aaty 40mg SC every 2 weeks [facility] Medical History Pain in joint involving multiple sites Varicose veins of both lower extremities with pain Mixed conductive and sensorineural hearing loss History of migraine headaches Ulcerative colitis Long-term use of immunosuppressant medication Osteoarthritis of lumbar spine Fibromyalgia Tenosynovitis of fingers Dyslipidemia Essential hypertension 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 Brother No problems noted. Sister Mental health disorder Sister Mental health disorder Sister Mental health disorder Sister No problems noted. Sister No problems noted. Sister No problems noted. Sister No problems noted. 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 Review of Systems Const Details: Review of Systems Constitutional: Denies fever, chills, weight loss ENT: Denies vision changes, eye pain or eye redness, dental caries, dry mouth GI: Denies nausea, vomiting, diarrhea, abdominal pain, change in BM Pulm: Denies SOB, HENDERSON, hemoptysis, wheezing Cards: Denies chest pain, palpitations Skin: Denies Raynaud's, rash, nail changes, photosensitivity, DIRECTOR EMERGENCY DEPARTMENT: Denies headaches, weakness, paresthesias, recurrent falls MSK: as per HPI All other systems reviewed and are unremarkable except noted above Physical Exam Exam Exam: Vital signs reviewed Physical Examination CONSTITUITIONAL Patient alert and cooperative. Well appearing and in no apparent painful distress MSK Hands: ?Good therapeutic riding instructor strength bilaterally. No TTP of the MCPs today No TTP of the left wrist flexor tendon Wrists: ?Full range of motion at the wrists without pain. ?No tenderness to palpation or synovitis noted to the wrists. Elbows: Full range of motion without pain. No tenderness, weakness, swelling, increased warmth or erythema. Shoulders: Full range of motion without pain. No tenderness, weakness, swelling, increased warmth or erythema. Hip bursa: No tenderness to palpation Knees: ?Full range of motion. ?No tenderness, swelling, increased warmth or erythema.?No effusion or crepitations Ankles: Full range of motion. ?No tenderness, swelling, increased warmth or erythema.? Feet: ?Negative squeeze test. ?No tenderness to palpation or swelling of the MTPs. Bilateral lower extremity edema (up to mid dugan) Tender points:??Tender to palpation of the neck, shoulders, chest, elbows, hips, buttocks or knees. SKIN Skin intact without rashes. Vital Signs: Last Vital Signs Pulse 75 06/07/25 10:38 BP 130/90 H 06/07/25 10:38 Pulse Ox 96 06/07/25 10:38 Oxygen Delivery Method Room Air 06/07/25 10:38 BMI result Body Mass Index 35.8 Results Reviewed Results Reviewed: Laboratory Tests 05/23/25 14:55 WBC 7.3 RBC 4.27 Hgb 12.6 Hct 37.7 Plt Count 322 ESR 6 Sodium 142 Potassium 3.9 Chloride 110 H Carbon Dioxide 26 BUN 20 H Creatinine 0.88 AST 24 ALT 36 H C-Reactive Protein < 0.10 Infectious serologies 05/23/25 14:55 Hepatitis A IgM Ab Nonreactive Hep Bs Antigen Negative Hep Bs Antibody NONREACTIVE Hep B Core Total Ab Nonreactive Hepatitis C Ab (EIA) Nonreactive TB Test (T-Spot) Com Negative Assessment & Plan Assessment & Plan (1) Seropositive rheumatoid arthritis: Comment: CCP, DASHAWN pos. anti DNA, anti RENAY negative; on methotrexate since 2020; methotrexate stopped April 2023 due to LFT elevations. Aug 2023: No synovitis Code(s): M05.9 - Rheumatoid arthritis with rheumatoid factor, unspecified Category: Medical Plan: #RA Patient is a 59-year-old female with seropositive rheumatoid arthritis based on positive CCP. Doing better on Adalimumab-aaty weekly dose Plan - Continue Adalimumab-aaty 40mg SC every week - RTC 4 months - Labs before visit: CBC, CMP, ESR, CRP (2) Fibromyalgia: Code(s): M79.7 - Fibromyalgia Category: Medical Plan: #Fibromyalgia Patient is here with fibromyalgia. We will continue the gabapentin 400mg tid (3) Tenosynovitis of wrist flexor: Code(s): M65.939 - Unspecified synovitis and tenosynovitis, unspecified forearm Plan: #Left wrist flexor tenosynovitis Improved (4) Encounter for monitoring of adalimumab therapy: Code(s): Z51.81 - Encounter for therapeutic drug level monitoring; Z79.620 - intermediate frame tender (current) use of immunosuppressive biologic Plan: #Long-term Use of TNF Inhibitors: Adalimumab-aaty Discussed with the patient the benefits and risks of TNF inhibitors for the management of the rheumatic condition Benefits include reduce pain, maintenance of remission and reduction of flares as well as ?progression of the disease Risks include injection sites/infusion reactions, serious infections (such as bacterial infections, opportunistic infections), malignancy, delaminating syndromes, autoimmune phenomena, CHF exacerbations, palmar plantar psoriasis and cytopenias Recommended rotating injection sites, and holding medication during and for up to 1 week after resolution of a febrile illness or open skin wound Plan I spent 30 minutes reviewing the record and labs, seeing the patient, discussing the treatment plan and documenting in the medical record Coding Level of Care Code Est Pt Level 4 (82442) Complex EM visit Add On G2211 Diagnoses Seropositive rheumatoid arthritis M05.9 Fibromyalgia M79.7 Tenosynovitis of wrist flexor M65.939 Encounter for monitoring of adalimumab therapy Z51.81; Z79.620
--- OUTSIDE RECORDS SUMMARY | 2025-06-07 10:35 | XMS_ITS | Patient Health Record ---
Author Organization [facility] Address [address] [place] [address] Care Team Providers Care Electric Stove Mechanic Name Role Phone Laureano MONTGOMERY, [facility] Primary Care Provider Unavail able Jitendra Ivey Unavailable [phone] Allergies Allergen (clinical drug ingredient) Drug/Non Drug [...] Date Coverage End Date Cigna [address] [place] [address] [id number] Mario Alvarado Spouse - patient is the spouse of the insured Medical (General) History Medical History History ICD Code reflux measles hypertension headaches/migraines chicken pox colitis back, hip, knee pain asthma Arthritis Surgical History Surgery Date(Month/Year) ear surgery 2001, 2005 hysterectomy 2006 tonsillectomy 1991 gynecological surgery 1992 bunionectomy
--- OUTSIDE RECORDS SUMMARY | 2025-06-07 10:35 | XMS_ITS | Clinical Summary ---
Author Organization [facility] [address] [facility] Address [address] [place] [address] Phone Care Team Providers Care Cigarette Making Examiner Name Role Phone Grisel Frausto MD Primary Care Provider [phone] Allergies Active Allergy Reactions Criticality Noted Date Comments Amoxicillin 05/24/2025 Sulfamethoxazole-Trimethoprim 2024 Medications losartan (COZAAR) 100 mg tablet Take 1 tablet (100 mg total) by mouth 1 (one) time each day. 5 Active topiramate (TOPAMAX) 25 mg tablet Take 1 tablet (25 mg total) by mouth 1 (one) time each day. 5 Active furosemide (LASIX) 20 mg tablet Take 1 tablet (20 mg total) by mouth 1 (one) time each day. 5 Active rosuvastatin (CRESTOR) 20 mg tablet Take 1 tablet (20 mg total) by mouth 1 (one) time each day. 5 Active hydrOXYzine pamoate (VISTARIL) 25 mg capsule TAKE ONE CAPSULE BY MOUTH TWICE A DAY NEEDED FOR ANXIETY 5 Active gabapentin (NEURONTIN) 400 mg capsule TAKE 1 CAPSULE BY MOUTH THREE TIMES A DAY FOR 90 DAYS 5 Active citalopram (CeleXA) 40 mg tablet Take 1 tablet (40 mg total) by mouth 1 (one) time each day. Active buPROPion XL (WELLBUTRIN XL) 300 mg 24 hr tablet Take 1 tablet (300 mg total) by mouth 1 (one) time each day in the morning. Active rOPINIRole (REQUIP) 0.5 mg tablet take 2 tablets by mouth every day for 90 days 5 Active SUMAtriptan (IMITREX) 50 mg tablet take 1 tablet by mouth every day as needed for 30 days Active omeprazole (PriLOSEC) [address] capsule Take 1 capsule (20 mg total) by mouth. Active aspirin 81 mg EC tablet Take 1 tablet (81 mg total) by mouth 1 (one) time each day. 5 Active ACETAMINOPHEN ORAL Take 650 mg by mouth. Active adalimumab-aaty 40 mg/0.4 mL auto-injector, kit 5 Active cholecalciferol, vitamin D3, (VITAMIN D3 ORAL) Take by mouth. Active cyanocobalamin (Vitamin B-12) 1,000 mcg tablet Take 1 tablet (1,000 mcg total) by mouth 1 (one) time each day. Active mesalamine (LIALDA) 1.2 gram EC tabletIndications :Ulcerative pancolitis without complication (CMS/HCC V24, CMS/HCC V28) Take 4 tablets (4.8 g total) by mouth 1 (one) time each day with breakfast. 360 each 3 5 05/24/20 26 Active mesalamine (LIALDA) 1.2 gram EC tabletIndications :Ulcerative colitis with complication, unspecified location (CMS/HCC V24, CMS/HCC V28) Take 4 tablets (4.8 g total) by mouth 1 (one) time each day with breakfast. 120 each 11 5 05/24/20 25 Discontinu ed(Reorder ) Encounters Date Type Department Care Team Description 05/24/2025 10:40 AM EDT Office Visit Gastroenterology - [address] [place] [phone] Stella Mcpherson MD Ulcerative pancolitis without complication (CMS/HCC V24, CMS/HCC V28) (Primary Dx); Ulcerative colitis with complication, unspecified location (CMS/HCC V24, CMS/HCC V28) 05/24/2025 Telephone Gastroenterology - [address] [place] [phone] Marii Campbell MA 03/30/2025 9:47 AM EDT - 03/30/2025 11:59 PM EDT [facility] [address] [phone] Encounter for screening mammogram for breast cancer Discharge Disposition: Home or Self Care from Last 3 Months Surgical History Surgery Date Site/Laterality Comments STEREOTACTIC CORE BIOPSY Left BREAST SURGERY Left COLONOSCOPY W/ BIOPSIES 12/31/2022 no active colitis COLONOSCOPY W/ BIOPSIES 07/19/2019 nl TI, normal colon bx, HP x 1 COLONOSCOPY W/ BIOPSIES 07/15/2017 inactive colitis throughout COLONOSCOPY W/ BIOPSIES 05/28/2015 mild-moderate active colitis COLONOSCOPY W/ BIOPSIES 02/17/2012 mild chronic colitis COLONOSCOPY W/ BIOPSIES 01/30/2009 chronic colitis, mild-mod activity ESOPHAGOGASTRODUODENOSCOPY 01/30/2009 small hh VEIN LIGATION 05/14/2025 - 06/13/2025 Medical History Medical History Date Comments GERD [...] 07/12/2019 DX:Restles s leg syndrome Autoimmune disease ([facility]/HCC V24) 07/12/2019 DX:Autoimmune disease ([facility]) Family History Medical History Relation Name Comments Breast cancer Mother's Sister Relation Name Status Comments Mother's Sister Alive Social History Tobacco Use Types Packs/Day Years Used Date Smoking Tobacco: Never Smokeless Tobacco: Never Alcohol Use Standard Drinks/Week Comments Yes 0 (1 standard drink = 0.6 oz pur e alcohol) RARELY Comments No Sex and Gender Information Value [...] - Inhaled Oxygen Concentration - - Weight 96.7 kg (213 lb 3.2 oz) 05/24/2025 10:40 AM EDT Height 165.1 cm (5' 5 ) 05/24/2025 10:40 AM EDT Body Mass Index 35.48 05/24/2025 10:40 AM EDT Plan of Treatment Health Maintenance Due Date Last Done Comments Hepatitis B Vaccines (1 of 3 - 19+ 3-dose series) 1984 Cervical Cancer Screening: Pap Smear 1986 Cholesterol Screening (Lipid Panel) 10/17/2022 HIV Screening 10/17/2022 Hepatitis C Screening 10/17/2022 Social Influencers of Health Screening 10/17/2022 Hypertension/CHF/CAD Annual BMP Blood Test 10/30/2022 Pneumococcal Vaccine: 50+ Years (3 of 3 - PCV20 or PCV21) 10/01/2024 10/01/2019, 10/01/2019 Depression Screening 11/14/2024 COVID-19 Vaccine (8 - Moderna risk season) 2025 08/07/2024, 08/24/2023, 08/04/2022, Additional history exists Influenza Vaccine (#1) 2025 , 08/24/2023, 08/04/2022, Additional history exists DTaP,Tdap,and Td Vaccines (2 - Td or Tdap) 03/01/2027 03/01/2017 Breast Cancer Screening 03/30/2027 03/30/20 25, 01/20/2024, 09/30/2022, Additional history exists Colorectal Cancer Screening: Colonoscopy 05/28/2035 05/28/2025 RSV Immunization Adult Patients (1 - 1-dose 75+ series) 2040 Zoster Vaccines Completed 09/11/2020, 07/11/2020 HIB Vaccines Aged Out No longer eligi [...] Procedure Name Priority Date/Time Associated Diagnosis Comments EXTERNAL COLONOSCOPY REPORT Routine 05/28/2025 9:47 AM EDT MG MAMMO DIGITAL SCREENING W ALESHA BILAT Routine 03/30/2025 10:02 AM EDT Encounter for screening mammogram for breast cancer from Last 3 Months Results * External Colonoscopy Report (05/28/2025 9:47 AM EDT) Anatomical Region Laterality Modality Endoscopy us Historical Provider GI~PROCEDURE ORDERABLES F inal Result * MG Mammo Digital Screening w Alesha [...] year. [facility] at [address], [address] -------- FINAL REPORT -------- Dictated By: Aaron Pablo Dictated Date: 04/01/2025 10:39 ET Assigned Physician: aAron Pablo Reviewed and Electronically Signed By: Aaron Pablo Signed Date: 04/01/2025 10:54 ET Workstation ID: [id number] Transcribed By: Self Edit Transcribed Date: 04/01/2025 [...] year. [facility]amm[facility] location: [facility] [address] [place], [address] -------- FINAL REPORT -------- Dictated By: Aaron Pablo Dictated Date: 04/01/2025 10:39 ET Assigned Physician: Aaron Pablo Reviewed and Electronically Signed By: Aaron Pablo Signed Date: 04/01/2025 10:54 ET Workstation ID: [id number] Transcribed By: Self Edit Transcribed Date: 04/01/2025 10:41 ET us Self Referral Sppl IMG BI PROCEDURES Final Resul t from Last 3 Months Insurance [facility] PLAN Care Teams Cigarette Making Examiner Relationship Specialty Start Date End Date Grisel Frausto MD [address] [place] [address] [place] [address] PCP - General Internal Medicine 03/06/25
[2025-06-07 10:38] VITALS: BP 130/90; PULSE 75; O2SAT 96; BMI 35.8
== END 2025-06-07 10:58 | disposition home or self-care (01) ==
LOC: HO.RHE 10:21
PROVIDERS: PCP Internal Medicine; Visit Provider Student in an Organized Health Care Education/Training Program
DX: M05.79 Rheumatoid arthritis with rheumatoid factor of multiple sites without organ or systems involvement (principal); M79.7 Fibromyalgia; M65.939 Unspecified synovitis and tenosynovitis, unspecified forearm; Z51.81 Encounter for therapeutic drug level monitoring; Z79.620 Long term (current) use of immunosuppressive biologic
CPT/HCPCS: 99214; G2211

== ENCOUNTER → 2025-06-07 10:21 | Outpatient (BNVA) | payer OTHER, SELFPAY | PROVIDERS: PCP Internal Medicine; Visit Provider Student in an Organized Health Care Education/Training Program | DX: M79.7 Fibromyalgia (principal); Z51.81 Encounter for therapeutic drug level monitoring; M05.9 Rheumatoid arthritis with rheumatoid factor, unspecified; M65.939 Unspecified synovitis and tenosynovitis, unspecified forearm; Z79.620 Long term (current) use of immunosuppressive biologic | CPT/HCPCS: 99212 ==

== ENCOUNTER 2025-08-09 11:26 | Outpatient (REF) | payer OTHER, SELFPAY ==
[2025-08-09 12:29] LABS: Anion Gap 11 (12-20); Blood Urea Nitrogen 21 mg/dL (9-16); Calcium 9.3 mg/dL (8.4-10.2); Carbon Dioxide 26 mmol/L (22-29); Chloride 111 mmol/L (96-108); Estimated Glomerular Filt Rate 58; Potassium 4.4 mmol/L (3.3-5.1); Sodium 144 mmol/L (135-145)
[2025-08-09 12:30] LABS: Alanine Aminotransferase 30 U/L (0-31); Albumin Level 4.3 g/dL (3.5-5.0); Alkaline Phosphatase 42 U/L (39-117); Aspartate Amino Transferase 27 U/L (5-31); Total Protein 7.1 g/dL (6.5-8.0)
--- OUTSIDE RECORDS SUMMARY | 2025-08-09 13:20 | XMS_ITS | Clinical Summary ---
Author Organization [facility] 299 [facility] Address [address] [place] [address] Phone Care Team Providers Care Health And Safety Specialist Name Role Phone Grisel Frausto MD Primary Care Provider [phone] Allergies Active Allergy Reactions Criticality Noted Date [...] gram EC tabletIndications :Ulcerative pancolitis without complication (CMS/[facility] V24, CMS/[facility] V28) Take 4 tablets (4.8 g total) by mouth 1 (one) time each day with breakfast. 360 each 3 5 05/24/20 26 Active Encounters Date Type Department Care Team Description 05/24/2025 10:40 AM EDT Office Visit Gastroenterology - [address] [phone] Stella Mcpherson MD Ulcerative pancolitis without complication (CMS/HCC V24, CMS/[facility] V28) (Primary Dx); Ulcerative colitis with complication, unspecified location (CMS/HCC V24, CMS/[facility] V28) 05/24/2025 Telephone Gastroenterology - [address] [place] [phone] Marii Campbell MA from Last 3 Months Surgical History Surgery [...] Tdap) 03/01/2027 03/01/2017 Breast Cancer Screening 03/30/2027 03/30/20, 01/20/2024, 09/30/2022, Additional history exists Colorectal Cancer [...] for breast cancer from Last 3 Months or Most Recently Relevant to Health Maintenance Results * External Colonoscopy Report (05/28/2025 9:47 [...] year. 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 TISSUE DENSITY: There are scattered [...] year. [facility]amm[facility] location[facility] at [address] [place] [address], [address] -------- FINAL REPORT -------- Dictated By: Aaron Pablo Dictated Date: 04/01/2025 10:39 ET Assigned Physician: Aaron Pablo Reviewed and Electronically Signed By: Aaron Pablo Signed Date: 04/01/2025 10:54 ET Workstation ID: [id number] Transcribed By: Self Edit Transcribed Date: 04/01/2025 10:41 ET us Self Referral Sppl IMG BI PROCEDURES Final Resul t from Last 3 Months or Most Recently Relevant to Health Maintenance Insurance [facility] PLAN Care Teams Health And Safety Specialist Relationship Specialty Start Date End Date Grisel Frausto MD [address] [place] [address] [place] [address] PCP - General Internal Medicine 03/06/25
--- OUTSIDE RECORDS SUMMARY | 2025-08-09 13:21 | XMS_ITS | Patient Health Record ---
[facility] Address [address] [place] [address] Care Team Providers Care Link Trainer Maintenance Man Name Role Phone Laureano MONTGOMERY, [facility] Primary Care Provider Unavail able Jitendra Ivey Unavailable [phone] Allergies Allergen (clinical drug ingredient) Drug/Non Drug [...] Date Coverage End Date Cigna [address] [place] [address] [phone] [id number] Mario Alvarado Spouse - patient is the spouse of the insured Medical (General) History Medical History History ICD Code reflux measles hypertension headaches/migraines chicken pox colitis back, hip, knee pain asthma Arthritis Surgical History Surgery Date(Month/Year) ear surgery 2001, 2005 hysterectomy 2006 tonsillectomy 1991 gynecological surgery 1992 bunionectomy
== END 2025-08-09 11:27 | disposition home or self-care (01) ==
LOC: HO.LAB 11:26
PROVIDERS: PCP Internal Medicine; Visit Provider Internal Medicine
DX: Z00.00 Encounter for general adult medical examination without abnormal findings (principal); I10 Essential (primary) hypertension; E78.00 Pure hypercholesterolemia, unspecified; R60.0 Localized edema
CPT/HCPCS: 36415; 80053

== ENCOUNTER 2025-10-03 16:07 | Outpatient (REF) | payer OTHER, SELFPAY ==
[2025-10-03 16:19] LABS: MANUAL DIFF FLAG NO
[2025-10-03 16:44] LABS: Hematocrit 41.8 % (37.0-47.0); Hemoglobin 13.4 g/dl (12.0-16.0); Imm Gran Abs Auto 0.02 X10*3/uL (0.00-0.03); Imm Gran Pct Auto 0.3 % (0.0-0.4); Lymphocytes Absolute Auto 2.8 X10*3/uL (1.2-4.9); Mean Corpuscular HGB Conc 32.1 g/dl (31.0-35.0); Mean Corpuscular Hemoglobin 28.9 pg (27.0-33.0); Mean Corpuscular Volume 90.1 fL (80.0-98.0); NRBC Abs Auto 0.000 X10*3/uL (0.0-0.012); NRBC Pct Auto 0.0 /100WBC (0.0-0.2); Platelet Count 307 X10*3/uL (160-400); Red Blood Count 4.64 X10*6/uL (4.20-5.50); White Blood Count 7.6 X10*3/uL (4.8-10.8)
[2025-10-03 17:12] LABS: Alanine Aminotransferase 24 U/L (0-31); Albumin Level 4.6 g/dL (3.5-5.0); Alkaline Phosphatase 44 U/L (39-117); Anion Gap 10 (12-20); Aspartate Amino Transferase 25 U/L (5-31); Blood Urea Nitrogen 23 mg/dL (9-16); Calcium 9.3 mg/dL (8.4-10.2); Carbon Dioxide 25 mmol/L (22-29); Chloride 113 mmol/L (96-108); Estimated Glomerular Filt Rate > 60; Potassium 3.9 mmol/L (3.3-5.1); Sodium 144 mmol/L (135-145); Total Protein 7.3 g/dL (6.5-8.0)
--- OUTSIDE RECORDS SUMMARY | 2025-10-03 20:55 | XMS_ITS | Clinical Summary ---
Author Organization [facility] 299 [facility] Address [address] [place] [address] Phone Care Team Providers Care Motor Tune Up Specialist Name Role Phone Grisel Fruasto MD Primary Care Provider [phone] Allergies Active Allergy Reactions Criticality Noted Date [...] 360 each 3 5 05/24/20 26 Active Surgical History Surgery Date Site/Laterality Comments STEREOTACTIC [...] 1984 Cervical Cancer Screening: Pap Smear 1986 RSV Immunization Adult Patients (1 - Risk 50-74 years 1-dose series) 2015 Cholesterol Screening (Lipid Panel) 10/17/2022 HIV Screening 10/17/2022 Hepatitis C Screening 10/17/2022 Social Influencers of Health Screening 10/17/2022 Hypertension/CHF/CAD Annual BMP Blood Test 10/30/2022 Pneumococcal Vaccine: 50+ Years (3 of 3 - PCV20 or PCV21) 10/01/2024 10/01/2019, 10/01/2019 Depression Screening 11/14/2024 COVID-19 Vaccine ( season) 2025 08/07/2024, 08/24/2023, 08/04/2022, Additional history exists Influenza Vaccine (#1) 2025 , 08/24/2023, 08/04/2022, Additional history exists DTaP,Tdap,and Td Vaccines (2 - Td or Tdap) 03/01/2027 03/01/2017 Breast Cancer Screening 03/30/2027 03/30/20 25, 01/20/2024, 09/30/2022, Additional history exists Colorectal Cancer Screening: Colonoscopy 05/28/2035 05/28/2025 Zoster Vaccines Completed 09/11/2020, 07/11/2020 HIB Vaccines [...] year. 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 TISSUE DENSITY: There are scattered areas [...] year. [facility]ammography location[facility] at [address], [address] -------- FINAL REPORT -------- Dictated By: Aaron Pablo Dictated Date: 04/01/2025 10:39 ET Assigned Physician: Aaron Pablo Reviewed and Electronically Signed By: Aaron Pablo Signed Date: 04/01/2025 10:54 ET Workstation ID: [id number] Transcribed By: Self Edit Transcribed Date: 04/01/2025 10:41 ET us Self Referral Sppl IMG BI PROCEDURES Final Resul t from Last 3 Months or Most Recently Relevant to Health Maintenance Insurance [employer] Care Teams Motor Tune Up Specialist Relationship Specialty Start Date End Date Grisel Frausto MD [address] [place] [address] [place] [address] PCP - General Internal Medicine 03/06/25
--- OUTSIDE RECORDS SUMMARY | 2025-10-03 20:55 | XMS_ITS | Patient Health Record ---
Author Organization [facility] Address [address] [place] [address] Care Team Providers Care Special Needs Babysitter Name Role Phone Laureano MONTGOMERY, [facility] Primary Care Provider Unavail able Jitendra Ivey Unavailable [phone] Allergies Allergen (clinical drug ingredient) Drug/Non Drug [...] Date Coverage End Date Cigna [address] [place] [address] [id number] Mario Alvarado Spouse - patient is the spouse of the insured Medical (General) History Medical History History ICD Code reflux measles hypertension headaches/migraines chicken pox colitis back, hip, knee pain asthma Arthritis Surgical History Surgery Date(Month/Year) ear surgery 2001, 2005 hysterectomy 2006 tonsillectomy 1991 gynecological surgery 1992 bunionectomy
== END 2025-10-03 16:08 | disposition home or self-care (01) ==
LOC: HO.LAB 16:07
PROVIDERS: PCP Internal Medicine; Visit Provider Student in an Organized Health Care Education/Training Program
DX: M05.9 Rheumatoid arthritis with rheumatoid factor, unspecified (principal); Z79.899 Other long term (current) drug therapy
CPT/HCPCS: 36415; 80053; 85025; 85652; 86140

== ENCOUNTER 2025-10-04 11:41 | Outpatient (AMB) | payer OTHER, SELFPAY ==
--- NOTE | 2025-10-04 11:50 | A.OFFVIS_ITS ---
Vital Signs 10/04/25 11:55 Height 5 ft 5 in Weight 216 lb 6 oz BMI 36.0 BP 134/90 H Blood Pressure Location Lt brachial Position Sitting Pulse 77 Pulse Source Pulse Oximeter Pulse Oximetry (%) 97 Oxygen Delivery Method Room Air Intake Visit Reasons: Follow up Intake Note: Patient presents for follow up. Allergies amoxicillin (AMOXICILLIN) Allergy (Intermediate, Verified 10/04/25 11:55) FACIAL SWELLING, swollen face Sulfa (Sulfonamide Antibiotics) Allergy (Unknown, Verified 10/04/25 11:55) red patches all over legs Medication List - Last Reconciled 10/04/25 by Karine Mitchell MD acetaminophen ER 650 mg PO BID adalimumab-aaty 40 mg (0.4 mL) subcut .every week aspirin 81 mg PO DAILY bupropion HCl XL 300 mg PO DAILY cholecalciferol (vitamin D3) 25 mcg PO DAILY citalopram 40 mg PO BEDTIME cyanocobalamin (vitamin B-12) 1,000 mcg sublingual DAILY diclofenac sodium 1% 2 grams topical QID PRN fexofenadine (Miladis Allergy) 180 mg PO DAILY furosemide 20 mg PO QAM gabapentin 400 mg PO TID 90 days hydroxyzine pamoate 25 mg PO BID losartan 100 mg PO DAILY mesalamine 4.8 grams PO DAILY omeprazole 20 mg PO BID pravastatin 80 mg PO BEDTIME ropinirole 1 mg (2 x 0.5 mg) PO DAILY 90 days rosuvastatin 20 mg PO DAILY sumatriptan succinate 50 mg PO DAILY PRN topiramate 25 mg PO DAILY verapamil ER 120 mg PO DAILY HPI Comments Details: Patient is a 59-year-old female with hypertension, hyperlipidemia, ulcerative colitis, CCP positive with ? inflammatory arthritis such as RA, osteoarthritis of the lumbar spine, fibromyalgia and history of pyoderma gangrenosum who presents today for follow-up. Interval History: Last seen 06/07/25 with me - on adalimumab aaty 40 mg SC every week, gabapentin 400 mg t.i.d. - Left wrist improved after flexor tendonitis steroid injection given 01/2025 - Hands doing better - did not go to PT because she felt she doesn't need it - Concerned about weight gain - no changes made to medication Today - On adalimumab aaty 40 mg SC every week, gabapentin 400 mg t.i.d. - Has been out of the gabapentin for 2 weeks due to pharmacy saying its too ear ly for refills - Doing well overall but complaining of left knee pain specifically today - Notes that the pain started about 1-2 days after moving a large case of water - Pain has been constant for the past 2 weeks Rheumatologic History: Ulcerative colitis on mesalamine Seropositive RA? CCP, DASHAWN pos. anti DNA, anti RENAY negative; on methotrexate since 2020; methotrexate stopped April 2023 due to LFT elevations. Aug 2023: No synovitis. Immunosuppressives not restarted Current Rheumatology Medication(s): Gabapentin 400mg po TID (not taking) Adalimumab - aaty 40mg SC every weeks [facility] Medical History Pain in joint involving multiple sites Varicose veins of both lower extremities with pain Mixed conductive and sensorineural hearing loss History of migraine headaches Ulcerative colitis Long-term use of immunosuppressant medication Osteoarthritis of lumbar spine Fibromyalgia Tenosynovitis of fingers Dyslipidemia Essential hypertension 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 Brother No problems noted. Sister Mental health disorder Sister Mental health disorder Sister Mental health disorder Sister No problems noted. Sister No problems noted. Sister No problems noted. Sister No problems noted. 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 Review of Systems Narrative Review of Systems Constitutional: Denies fever, chills, weight loss ENT: Denies vision changes, eye pain or eye redness, dental caries, dry mouth GI: Denies nausea, vomiting, diarrhea, abdominal pain, change in BM Pulm: Denies SOB, HENDERSON, hemoptysis, wheezing Cards: Denies chest pain, palpitations Skin: Denies Raynaud's, rash, nail changes, photosensitivity, RECYCLABLE MATERIALS DISTRIBUTOR: Denies headaches, weakness, paresthesias, recurrent falls MSK: as per HPI All other systems reviewed and are unremarkable except noted above Physical Exam Exam Exam: Vital signs reviewed Physical Examination CONSTITUITIONAL Patient alert and cooperative. Well appearing and in no apparent painful distress MSK Hands * Right Hand: Able to make a fist. No swelling or tenderness to palpation of the MCPs, PIPs or DIPs. * Left Hand: Able to make a fist. No swelling or tenderness to palpation of the MCPs, PIPs or DIPs. * Herbedens nodes noted bilaterally Wrists * Right Wrist: Full ROM to flexion and extension. No swelling or TTP * Left Wrist: Full ROM to flexion and extension. No swelling or TTP Elbows * Right Elbow: Full ROM. No swelling or TTP. No TTP of the medial epicondyle. No TTP of the lateral epicondyle * Left Elbow: Full ROM. No swelling or TTP. No TTP of the medial epicondyle. No TTP of the lateral epicondyle Shoulders * Right shoulder: Full ROM. No swelling noted. No TTP of the AC joint. No TTP of the subacromial bursa. No TTP of the posterior shoulder * Left shoulder: Full ROM. No swelling noted. No TTP of the AC joint. No TTP of the subacromial bursa. No TTP of the posterior shoulder Knees * Right knee: Full ROM. No swelling noted. No TTP of the knee joint line. No TTP of pes anserine bursa * Left knee: Full ROM. No swelling noted. TTP of the knee joint line. No TTP of pes anserine bursa. * Crepitations felt bilaterally Ankles * Right ankle: Good ankle dorsiflexion and plantar flexion. No swelling. No TTP of the ankle joint * Left ankle: Good ankle dorsiflexion and plantar flexion. No swelling. No TTP of the ankle joint Feet * Right foot: Negative squeeze test * Left foot: Negative squeeze test Tender points? * No tenderness to palpation of the bilateral trapezius, supraspinatus, anterior costochondral junctions, bilateral suboccipital muscle insertions SKIN No rashes Vital Signs: Last Vital Signs Pulse 77 10/04/25 11:55 BP 134/90 H 11/21/25 11:55 Pulse Ox 97 10/04/25 11:55 Oxygen Delivery Method Room Air 10/04/25 11:55 BMI result Body Mass Index 36.0 Results Reviewed Results Reviewed: Laboratory Tests 10/03/25 16:17 WBC 7.6 RBC 4.64 Hgb 13.4 Hct 41.8 Plt Count 307 ESR 6 Sodium 144 Potassium 3.9 Chloride 113 H Carbon Dioxide 25 BUN 23 H Creatinine 0.92 AST 25 ALT 24 Alkaline Phosphatase 44 C-Reactive Protein 0.11 Laboratory Tests 05/23/25 14:55 Hepatitis A IgM Ab Nonreactive Hep Bs Antigen Negative Hep Bs Antibody NONREACTIVE Hep B Core Total Ab Nonreactive Hepatitis C Ab (EIA) Nonreactive TB Test (T-Spot) Com Negative Assessment & Plan Assessment & Plan (1) Seropositive rheumatoid arthritis: Comment: CCP, DASHAWN pos. anti DNA, anti RENAY negative; on methotrexate since 2020; methotrexate stopped April 2023 due to LFT elevations. Aug 2023: No synovitis Code(s): M05.9 - Rheumatoid arthritis with rheumatoid factor, unspecified Category: Medical Plan: #RA Patient is a 59-year-old female with seropositive rheumatoid arthritis based on positive CCP. Doing well on Adalimumab-aaty weekly dose Plan - Continue Adalimumab-aaty 40mg SC every week - RTC 4 months - Labs before visit: CBC, CMP, ESR, CRP (2) Fibromyalgia: Code(s): M79.7 - Fibromyalgia Category: Medical Plan: #Fibromyalgia Patient is here with fibromyalgia. 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) use of immunosuppressive biologic Plan: #Long-term Use of TNF Inhibitors: Adalimumab-aaty Discussed with the patient the benefits and risks of TNF inhibitors for the management of the rheumatic condition Benefits include reduce pain, maintenance of remission and reduction of flares as well as ?progression of the disease Risks include injection sites/infusion reactions, serious infections (such as bacterial infections, opportunistic infections), malignancy, delaminating syndromes, autoimmune phenomena, CHF exacerbations, palmar plantar psoriasis and cytopenias Recommended rotating injection sites, and holding medication during and for up to 1 week after resolution of a febrile illness or open skin wound Plan I spent 30 minutes reviewing the record and labs, seeing the patient, discussing the treatment plan and documenting in the medical record Medications: New pregabalin Start with 1 tablet at nights for 1 week then increase to 1 tablet twice a day. If tolerating, increase to 2 tablets twice a day 100 mg (2 x 50 mg) PO BID 360 caps 1RF 90 days M25.562 - Pain in left knee Changed From diclofenac sodium 1% apply to single elbow, wrist or hand; for hand includes palm/fingers/back of hand 2 grams topical QID PRN 100 grams 0RF joint pain M17.12 - Unilateral primary osteoarthritis, left knee To diclofenac sodium 1% left knee 4 grams topical QID 100 grams 3RF joint pain M17.12 - Unilateral primary osteoarthritis, left knee Refilled adalimumab-aaty 40 mg (0.4 mL) subcut .every week 4 ea 4RF M05.9 - Rheumatoid arthritis with rheumatoid factor, unspecified Discontinued gabapentin Discontinued Reason: Doctor's Order 400 mg PO TID 90 days 270 caps 1RF M79.7 - Fibromyalgia Coding Level of Care Code Est Pt Level 4 (90625) Complex visit Add On G2211 Diagnoses Seropositive rheumatoid arthritis M05.9 Fibromyalgia M79.7 Acute pain of left knee M25.562 Chronicity: acute Encounter for monitoring of adalimumab therapy Z51.81; Z79.620
[2025-10-04 11:55] VITALS: BP 134/90; PULSE 77; O2SAT 97; BMI 36.0
--- OUTSIDE RECORDS SUMMARY | 2025-10-04 12:32 | XMS_ITS | Patient Health Record ---
[facility] Address [address] [place] [address] Care Team Providers Care Product Applications Scientist Name Role Phone Laureano MONTGOMERY, [facility] Primary Care Provider Unavail able Jitendra Ivey Unavailable [phone] Allergies Allergen (clinical drug ingredient) Drug/Non Drug [...] Date Coverage End Date [employer] [address] [place] [address] [phone] [id number] Mario Alvarado Spouse - patient is the spouse of the insured Medical (General) History Medical History History ICD Code reflux measles hypertension headaches/migraines chicken pox colitis back, hip, knee pain asthma Arthritis Surgical History Surgery Date(Month/Year) ear surgery 2001, 2005 hysterectomy 2006 tonsillectomy 1991 gynecological surgery 1992 bunionectomy
--- OUTSIDE RECORDS SUMMARY | 2025-10-04 12:32 | XMS_ITS | Clinical Summary ---
Author Organization [facility] [address] [facility] Address [address] [place] [address] Phone Care Team Providers Care Senior Compliance Analyst Name Role Phone Grisel Frausto MD Primary Care Provider [phone] Allergies Active Allergy Reactions Criticality Noted Date [...] year. 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 TISSUE DENSITY: There are scattered areas [...] year. Mammography location: [facility] at [address], [address] -------- FINAL REPORT -------- Dictated By: Aaron Pablo Dictated Date: 04/01/2025 10:39 ET Assigned Physician: Aaron Pablo Reviewed and Electronically Signed By: Aaron Pablo Signed Date: 04/01/2025 10:54 ET Workstation ID: [id number] Transcribed By: Self Edit Transcribed Date: 04/01/2025 10:41 ET us Self Referral Sppl IMG BI PROCEDURES Final Resul t from Last 3 Months or Most Recently Relevant to Health Maintenance Insurance [facility] Care Teams Senior Compliance Analyst Relationship Specialty Start Date End Date Grisel Frausto MD [address] [place] [address] [place] [address] PCP - General Internal Medicine 03/06/25
== END 2025-10-04 12:41 | disposition home or self-care (01) ==
LOC: HO.RHES 11:41
PROVIDERS: PCP Internal Medicine; Visit Provider Student in an Organized Health Care Education/Training Program
DX: M05.9 Rheumatoid arthritis with rheumatoid factor, unspecified (principal); M79.7 Fibromyalgia; M25.562 Pain in left knee; Z51.81 Encounter for therapeutic drug level monitoring; Z79.620 Long term (current) use of immunosuppressive biologic
CPT/HCPCS: 99214

== ENCOUNTER → 2025-10-04 11:41 | Outpatient (BNVA) | payer OTHER, SELFPAY | PROVIDERS: PCP Internal Medicine; Visit Provider Student in an Organized Health Care Education/Training Program | DX: M05.79 Rheumatoid arthritis with rheumatoid factor of multiple sites without organ or systems involvement (principal); M79.7 Fibromyalgia; M25.562 Pain in left knee; Z79.620 Long term (current) use of immunosuppressive biologic | CPT/HCPCS: 99212 ==